=== PATIENT | male | born 1930 | race Caucasian/White ===

== ENCOUNTER 2016-11-18 | Outpatient (CLI) | payer MEDICARE, BC | END 2016-11-18 08:30 | disposition short-term general hospital (02) | CPT/HCPCS: A0425; A0427 ==

== ENCOUNTER 2016-12-08 | Outpatient (CLI) | payer MEDICARE, BC | END 2016-12-08 19:18 | disposition critical access hospital (66) | CPT/HCPCS: A0425; A0429 ==

== ENCOUNTER 2016-12-08 19:25 | Emergency (ER) | payer MEDICARE, BC ==
[2016-12-08] MEDS ORDERED: ASPIRIN CHEW 81 MG TABLET PO STA (21:14)
[2016-12-08] MEDS ORDERED: ASPIRIN CHEW 81 MG TABLET ONE (21:16)
== END 2016-12-08 21:27 | disposition home or self-care (01) ==
DX: G45.9 Transient cerebral ischemic attack, unspecified (principal); R29.703 NIHSS score 3; Z86.73 Personal history of transient ischemic attack (TIA), and cerebral infarction without residual deficits; Z79.02 Long term (current) use of antithrombotics/antiplatelets; I10 Essential (primary) hypertension; Z95.5 Presence of coronary angioplasty implant and graft; Z87.891 Personal history of nicotine dependence
CPT/HCPCS: 70450; 99283; 99284; A9270

== ENCOUNTER 2016-12-09 | Outpatient (CLI) | payer MEDICARE, BC | END 2016-12-09 07:17 | disposition critical access hospital (66) | DX: R53.1 Weakness (principal) | CPT/HCPCS: A0425; A0429 ==

== ENCOUNTER 2016-12-09 07:24 | Inpatient (IN) | payer MEDICARE, BC ==
[2016-12-09] MEDS ORDERED: SODIUM CHLORIDE FLUSH 0.9% 10 ML SYRINGE IVP PRN (08:12)
[2016-12-09] MEDS ORDERED: ACETAMINOPHEN 325 MG TABLET PO PRN (08:12)
[2016-12-09] MEDS ORDERED: HYDROcod/ACETAM 10 MG/325 MG TABLET PO PRN (08:12)
[2016-12-09] MEDS ORDERED: SODIUM BICARBONATE 50 MEQ in SODIUM CHLORIDE 0.9% 1,000 ML IV SCH (09:00)
[2016-12-09] MEDS: IOPAMIDOL-300 100 ML VIAL IVP ONE ×2 (09:32→12:33)
[2016-12-09] MEDS ORDERED: ATENOLOL 25 MG TABLET PO SCH (12:00)
[2016-12-09] MEDS ORDERED: TRIAMT/HCTZ 37.5 MG/25 MG CAPSULE PO SCH (12:00)
[2016-12-09] MEDS: SODIUM BICARBONATE 50 MEQ in DEXTROSE 5% 1,000 ML IV SCH (12:18)
[2016-12-09] MEDS: CLOPIDOGREL 75 MG TABLET PO SCH (12:19)
[2016-12-09] MEDS: amLODIPine 5 MG TABLET PO SCH (12:19)
[2016-12-09] MEDS: diltiaZEM CD 180 MG CAPSULE PO SCH (12:19)
[2016-12-09] MEDS: traMADol 50 MG TABLET PO SCH ×2 (12:19→21:42)
[2016-12-09] MEDS: SODIUM CHLORIDE FLUSH 0.9% 10 ML SYRINGE IVP SCH ×2 (13:37→21:45)
[2016-12-09] MEDS: ATORVASTATIN 10 MG TABLET PO SCH (21:42)
[2016-12-10] MEDS: SODIUM BICARBONATE 50 MEQ in DEXTROSE 5% 1,000 ML IV SCH ×2 (00:10→12:26)
[2016-12-10] MEDS: SODIUM CHLORIDE FLUSH 0.9% 10 ML SYRINGE IVP SCH ×3 (05:22→21:04)
[2016-12-10] MEDS: CLOPIDOGREL 75 MG TABLET PO SCH (09:01)
[2016-12-10] MEDS: POLYETHYLENE GLYCOL 3350 17 GM PACKET PO SCH (09:01)
[2016-12-10] MEDS: amLODIPine 5 MG TABLET PO SCH (09:01)
[2016-12-10] MEDS: diltiaZEM CD 180 MG CAPSULE PO SCH (09:01)
[2016-12-10] MEDS: traMADol 50 MG TABLET PO SCH ×2 (09:01→21:04)
[2016-12-10] MEDS: TRIAMT/HCTZ 37.5 MG/25 MG CAPSULE PO SCH (09:02)
[2016-12-10] MEDS ORDERED: ATENOLOL 25 MG TABLET PO SCH (21:00)
[2016-12-10] MEDS: ATORVASTATIN 10 MG TABLET PO SCH (21:04)
[2016-12-11] MEDS: SODIUM BICARBONATE 50 MEQ in DEXTROSE 5% 1,000 ML IV SCH (00:26)
[2016-12-11] MEDS: SODIUM CHLORIDE FLUSH 0.9% 10 ML SYRINGE IVP SCH (06:19)
[2016-12-11] MEDS: amLODIPine 5 MG TABLET PO SCH (08:28)
[2016-12-11] MEDS: TRIAMT/HCTZ 37.5 MG/25 MG CAPSULE PO SCH (08:28)
[2016-12-11] MEDS: traMADol 50 MG TABLET PO SCH (08:28)
[2016-12-11] MEDS: diltiaZEM CD 180 MG CAPSULE PO SCH (08:28)
[2016-12-11] MEDS: CLOPIDOGREL 75 MG TABLET PO SCH (08:28)
[2016-12-11] MEDS: POLYETHYLENE GLYCOL 3350 17 GM PACKET PO SCH (08:29)
== END 2016-12-11 13:36 | DRG 65 ==
DX: I63.9 Cerebral infarction, unspecified (principal); I63.512 Cerebral infarction due to unspecified occlusion or stenosis of left middle cerebral artery; G81.91 Hemiplegia, unspecified affecting right dominant side; R29.810 Facial weakness; R20.0 Anesthesia of skin; Z86.73 Personal history of transient ischemic attack (TIA), and cerebral infarction without residual deficits; I10 Essential (primary) hypertension; E78.00 Pure hypercholesterolemia, unspecified; Z95.5 Presence of coronary angioplasty implant and graft; R47.1 Dysarthria and anarthria; R47.02 Dysphasia; E78.5 Hyperlipidemia, unspecified; R29.707 NIHSS score 7; Z87.891 Personal history of nicotine dependence; Z66 Do not resuscitate; Z80.9 Family history of malignant neoplasm, unspecified; Z68.30 Body mass index [BMI] 30.0-30.9, adult; E66.9 Obesity, unspecified

== ENCOUNTER 2017-04-08 08:00 | Outpatient (CLI) | payer MEDICARE, BC ==
[2017-04-09 20:17] LABS: TEST RESULT REPORT (())
== END 2017-04-08 08:01 | disposition home or self-care (01) ==
LOC: LAB.R 08:00
PROVIDERS: ATTEND Family Medicine
DX: R19.7 Diarrhea, unspecified (principal)
CPT/HCPCS: 81599; 82705; 83630; 87045; 87046; 87177; 87209; 87329; 87493

== ENCOUNTER 2017-05-10 10:24 | Outpatient (CLI) | payer MEDICARE, BC ==
[2017-05-10 15:10] LABS: BASOPHILS % (AUTO) 0.3 %; EOSINOPHILS % (AUTO) 0.6 %; HCT - HEMATOCRIT 29.9 % (42.0-52.0); HGB - HEMOGLOBIN 10.3 g/dL (14.0-18.0); LYMPHOCYTES # (AUTO) 1.4 10^3/uL (1.5-3.5); LYMPHOCYTES % (AUTO) 24.6 %; MEAN CORPUSCULAR HEMOGLOBIN 29.3 pg (27.0-31.0); MEAN CORPUSCULAR HGB CONC 34.4 g/dL (32.0-36.0); MEAN CORPUSCULAR VOLUME 85.3 fL (80.0-94.0); MEAN PLATELET VOLUME 6.9 fL (7.4-11.4); MONOCYTES # (AUTO) 0.7 10^3/uL (0.0-1.0); MONOCYTES % (AUTO) 12.1 %; NEUTROPHILS # (AUTO) 3.6 10^3/uL (1.5-6.6); NEUTROPHILS % (AUTO) 62.4 %; NUCLEATED RED BLOOD CELLS AUTO 0.1 /100WBC; RED BLOOD COUNT 3.51 10^6/uL (4.70-6.10); RED CELL DISTRIBUTION WIDTH 13.5 % (12.0-15.0); UNCORRECTED WHITE BLOOD COUNT 5.9 x10^3/uL; WHITE BLOOD COUNT 5.9 x10^3/uL (4.8-10.8)
[2017-05-10 17:19] LABS: FERRITIN 61.7 ng/mL (23.9-336.2)
[2017-05-10 17:20] LABS: IRON 48 ug/dL (45-182); TOTAL IRON BINDING CAPACITY 276 ug/dL (250-450); TRANSFERRIN 197 mg/dL (180-329)
[2017-05-10 17:35] LABS: THYROID STIMULATING HORMONE 2.51 uIU/mL (0.34-5.60)
== END 2017-05-10 10:25 | disposition home or self-care (01) ==
LOC: LAB.WCP 10:24
PROVIDERS: ATTEND Family Medicine
DX: D64.9 Anemia, unspecified (principal)
CPT/HCPCS: 36415; 82728; 83540; 84443; 84466; 85025

== ENCOUNTER 2017-08-25 03:51 | Outpatient (CLI) | payer MEDICARE, BC ==
[2017-08-25 19:05] LABS: CALCIUM 9.1 mg/dL (8.5-10.3); CREATININE 1.6 mg/dL (0.6-1.2); POTASSIUM 3.9 mmol/L (3.5-5.0)
== END 2017-08-25 03:52 | disposition home or self-care (01) ==
LOC: LAB.WCP 03:51
PROVIDERS: ATTEND Family Medicine
DX: I12.9 Hypertensive chronic kidney disease with stage 1 through stage 4 chronic kidney disease, or unspecified chronic kidney disease (principal); N18.2 Chronic kidney disease, stage 2 (mild)
CPT/HCPCS: 36415; 80048

== ENCOUNTER 2018-01-03 08:00 | Outpatient (CLI) | payer MEDICARE, BC ==
[2018-01-03 19:12] LABS: BASOPHILS % (AUTO) 0.5 %; EOSINOPHILS # (AUTO) 0.1 10^3/uL (0.0-0.7); EOSINOPHILS % (AUTO) 1.3 %; HGB - HEMOGLOBIN 10.9 g/dL (14.0-18.0); LYMPHOCYTES # (AUTO) 1.7 10^3/uL (1.5-3.5); MEAN CORPUSCULAR HEMOGLOBIN 28.6 pg (27.0-31.0); MEAN CORPUSCULAR HGB CONC 33.2 g/dL (32.0-36.0); MEAN CORPUSCULAR VOLUME 86.2 fL (80.0-94.0); MEAN PLATELET VOLUME 6.5 fL (7.4-11.4); MONOCYTES # (AUTO) 0.6 10^3/uL (0.0-1.0); MONOCYTES % (AUTO) 11.6 %; NEUTROPHILS # (AUTO) 2.8 10^3/uL (1.5-6.6); NEUTROPHILS % (AUTO) 53.6 %; PLT - PLATELET COUNT 125 10^3/uL (130-450); RED CELL DISTRIBUTION WIDTH 13.5 % (12.0-15.0); WHITE BLOOD COUNT 5.3 x10^3/uL (4.8-10.8)
[2018-01-03 19:19] LABS: CALCIUM 8.9 mg/dL (8.5-10.3); CREATININE 1.5 mg/dL (0.6-1.2)
== END 2018-01-03 08:01 | disposition home or self-care (01) ==
LOC: LAB.WCP 08:00
PROVIDERS: ATTEND Family Medicine
DX: I12.9 Hypertensive chronic kidney disease with stage 1 through stage 4 chronic kidney disease, or unspecified chronic kidney disease (principal); N18.2 Chronic kidney disease, stage 2 (mild); E78.5 Hyperlipidemia, unspecified; I25.10 Atherosclerotic heart disease of native coronary artery without angina pectoris
CPT/HCPCS: 36415; 80048; 85025

== ENCOUNTER 2019-05-24 16:07 | Outpatient (CLI) | payer MEDICARE, BC | END 2019-05-24 16:08 | disposition EMS.NT | LOC: EMS 16:07 | PROVIDERS: ATTEND Surgery | DX: Z03.89 Encounter for observation for other suspected diseases and conditions ruled out (principal) ==

== ENCOUNTER 2019-06-30 08:00 | Outpatient (CLI) | payer MEDICARE, BC ==
[2019-06-30 19:24] LABS: ALBUMIN 3.7 g/dL (3.2-5.5); ALKALINE PHOSPHATASE 88 IU/L (42-121); ALT ALANINE AMINOTRANSFERASE 12 IU/L (10-60); AST ASPARTATE AMINOTRANSFERASE 15 IU/L (10-42); BILIRUBIN,TOTAL 0.5 mg/dL (0.2-1.0); BUN - BLOOD UREA NITROGEN 28 mg/dL (6-20); CALCIUM 9.1 mg/dL (8.5-10.3); CARBON DIOXIDE - CO2 27 mmol/L (21-32); CHLORIDE 104 mmol/L (101-111); CHOL/HDL RATIO 4.2 (<5.0); CHOLESTEROL 113 mg/dL; CREATININE 1.7 mg/dL (0.6-1.2); GFR - MDRD 38 (>89); GLUCOSE 115 mg/dL (70-100); HDL CHOLESTEROL 27 mg/dL; LDL CHOLESTEROL,CALCULATED 63 mg/dL; LDL/HDL RATIO 2.3 (<3.6); SODIUM 139 mmol/L (135-145); TOTAL PROTEIN 7.3 g/dL (6.7-8.2); VLDL CHOLESTEROL 23 mg/dL
[2019-06-30 19:31] LABS: BASOPHILS % (AUTO) 0.6 %; EOSINOPHILS # (AUTO) 0.1 10^3/uL (0.0-0.7); EOSINOPHILS % (AUTO) 1.2 %; HGB - HEMOGLOBIN 8.8 g/dL (14.0-18.0); LYMPHOCYTES # (AUTO) 1.1 10^3/uL (1.5-3.5); LYMPHOCYTES % (AUTO) 23.2 %; MEAN CORPUSCULAR HEMOGLOBIN 25.5 pg (27.0-31.0); MEAN CORPUSCULAR HGB CONC 29.6 g/dL (32.0-36.0); MEAN CORPUSCULAR VOLUME 86.1 fL (80.0-94.0); MEAN PLATELET VOLUME 8.9 fL (7.4-11.4); MONOCYTES # (AUTO) 0.6 10^3/uL (0.0-1.0); NEUTROPHILS # (AUTO) 3.1 10^3/uL (1.5-6.6); NEUTROPHILS % (AUTO) 62.8 %; PLT - PLATELET COUNT 136 10^3/uL (130-450); RED BLOOD COUNT 3.45 10^6/uL (4.70-6.10); WHITE BLOOD COUNT 4.9 x10^3/uL (4.8-10.8)
== END 2019-06-30 23:59 | disposition home or self-care (01) ==
LOC: LAB.N 08:00
PROVIDERS: ATTEND Family Medicine
DX: I12.9 Hypertensive chronic kidney disease with stage 1 through stage 4 chronic kidney disease, or unspecified chronic kidney disease (principal); N18.2 Chronic kidney disease, stage 2 (mild); E78.5 Hyperlipidemia, unspecified; M79.662 Pain in left lower leg; Z12.5 Encounter for screening for malignant neoplasm of prostate
CPT/HCPCS: 36415; 80061; 85379; G0103; 80053; 83721; 84153; 84443; 85025

== ENCOUNTER 2019-08-03 14:57 | Outpatient (CLI) | payer MEDICARE, BC | END 2019-08-03 14:58 | disposition critical access hospital (66) | LOC: EMS 14:57 | PROVIDERS: ATTEND Surgery | DX: M54.2 Cervicalgia (principal); W01.0XXA Fall on same level from slipping, tripping and stumbling without subsequent striking against object, initial encounter; Y93.01 Activity, walking, marching and hiking; Y92.008 Other place in unspecified non-institutional (private) residence as the place of occurrence of the external cause; Z79.02 Long term (current) use of antithrombotics/antiplatelets | CPT/HCPCS: A0425; A0429 ==

== ENCOUNTER 2019-08-03 15:09 | Emergency (ER) | payer MEDICARE, BC ==
--- NOTE | 2019-08-03 15:31 | ED Physician Documentation ---
History of Present Illness - Stated complaint Stated Complaint: GLF - Chief complaint Chief Complaint: General - History obtained from History obtained from: Patient - History of Present Illness Timing: Today (Had a trip and fall in the driveway at home, sounds like he hit the occiput on his boat. History is a little limited from patient but due to dementia. He is on Plavix. No reported loss of consciousness. He denies any other injuries or pain but does have a scrape on his right pinky.) Review of Systems Constitutional: reports: Reviewed and negative Throat: reports: Reviewed and negative Cardiac: reports: Reviewed and negative Respiratory: reports: Reviewed and negative PD PAST MEDICAL HISTORY - Past Medical History Cardiovascular: Hypertension, High cholesterol Endocrine/Autoimmune: None GI: GERD : None Psych: None Musculoskeletal: None Derm: None - Past Surgical History Past Surgical History: Yes Cardiovascular: Coronary stent - Present Medications Home Medications: Ambulatory Orders Medication Instructions Recorded Confirmed Atenolol 50 mg PO QPM 12/08/16 12/09/16 Atorvastatin [Lipitor] 20 mg PO QPM 12/08/16 12/09/16 Clopidogrel [Plavix] 75 mg PO DAILY 12/08/16 12/09/16 amLODIPine [Norvasc] 10 mg PO DAILY 12/08/16 12/09/16 traMADol [Ultram] 50 mg PO Q12H PRN 12/08/16 12/09/16 Diltiazem HCl [Diltiazem 24Hr Cd] 180 mg PO DAILY 12/09/16 12/09/16 Famotidine 20 mg PO DAILY 12/09/16 12/09/16 Ferrous Gluconate 324 mg PO DAILY 12/09/16 12/09/16 Nitroglycerin [Nitrostat] 0.4 mg SL Q5M PRN 12/09/16 12/09/16 Triamterene/Hydrochlorothiazid 1 tab PO DAILY 12/09/16 12/09/16 [Triamterene-Hctz 37.5-25 mg Tb] - Allergies Allergies/Adverse Reactions: Allergies Allergy/AdvReac Type Severity Reaction Status Date / Time No Known Drug Allergies Allergy Verified 12/09/16 07:26 - Social History Does the pt smoke?: No Smoking Status: Never smoker Does the pt drink ETOH?: No - Immunizations Immunizations are current?: Yes PD ED PE NORMAL - Vitals Vital signs reviewed: Yes - General General: Other (He is alert and oriented to person and place but not time, pleasant and in no distress.) - HEENT HEENT: PERRL, EOMI - Neck Neck: No bony TTP (But maintained in a collar pending imaging given advanced age) - Cardiac Cardiac: RRR, No murmur - Respiratory Respiratory: No respiratory distress, Clear bilaterally - Abdomen Abdomen: Non tender - Extremities Extremities: Other (There is a scrape on the dorsum of the right pinky at the level of the middle phalanx but without tenderness or limited range of motion) - Neuro Neuro: No motor deficit, No sensory deficit, Normal speech Eye Opening: Spontaneous Motor: Obeys Commands Results - Vitals Vitals: Vital Signs - 24 hr 08/03/19 15:13 Temperature 36.3 C L Heart Rate 59 L Respiratory 16 Rate Blood Pressure 153/62 H O2 Saturation 98 Oxygen O2 Source Room air - Rads (name of study) CT Head and Cspine Radiology: EMP read contemporaneously (NAD) Departure - Departure Disposition: 01 Home, Self Care Clinical Impression: Fall from ground level Head injury Qualifiers: Encounter type: initial encounter Qualified Code(s): S09.90XA - Unspecified i njury of head, initial encounter Condition: Good Record reviewed to determine appropriate education?: Yes Instructions: ED Head Injury Closed Comments: Call your doctor to arrange a follow-up appointment, make the next available appointment. In the interim, return anytime if worse or if new symptoms develop. Your blood pressure was elevated today on check into the emergency department. This does not mean that you have hypertension, it is a common phenomenon to come to the emergency department and have elevated blood pressure. I recommend that you see your primary care physician within the week to have it rechecked when you are feeling better.
[2019-08-03] MEDS ORDERED: TETANUS/DIPHTHERIA/PERTUSSIS 0.5 ML SYRINGE IM ONE (15:55)
--- NOTE | 2019-08-03 15:57 | CT Report ---
Reason: head inj Procedure Date: 08/03/2019 Accession Number: [id number] / [id number] Procedure: CT - HEAD WO CPT Code: FULL RESULT: EXAM: CT HEAD EXAM DATE: 08/03/2019 03:36 PM. CLINICAL HISTORY: Headache from blunt head trauma. COMPARISON: HEAD ANGIO 12/09/2016 9:11 AM. TECHNIQUE: Multiaxial CT images were obtained from the foramen magnum to the vertex. Reformats: Sagittal and coronal. IV contrast: None. In accordance with CT protocol optimization, one or more of the following dose reduction techniques were utilized for this exam: automated exposure control, adjustment of mA and/or KV based on patient size, or use of iterative reconstructive technique. FINDINGS: Parenchyma: No intraparenchymal hemorrhage. No evidence of mass, midline shift, or CT findings of infarction. Frey-white differentiation is distinct. There is age appropriate generalized atrophy. Redemonstration of bilateral physiologic basal ganglia calcification. Extraaxial Spaces: Normal for age. No subdural or epidural collections identified. Ventricles: Normal in size and position. Sinuses and Orbits: Imaged paranasal sinuses, orbits, and mastoids show no significant abnormality. Bones: No evidence of fracture or calvarial defect. Other: None. IMPRESSION: Normal for age examination. No acute intracranial finding. RADIA
--- NOTE | 2019-08-03 16:08 | CT Report ---
Reason: head inj Procedure Date: 08/03/2019 Accession Number: [id number] / [id number] Procedure: CT - CERVICAL SPINE WO CPT Code: FULL RESULT: EXAM: CT CERVICAL SPINE WITHOUT CONTRAST DATE: 08/03/2019 03:36 PM. HISTORY: Neck pain from head trauma. COMPARISONS: HEAD ANGIO 12/09/2016 9:11 AM. TECHNIQUE: Thin-section axial images were acquired of the cervical spine without contrast. Post-processing: Coronal and sagittal reformats. Other: None. In accordance with CT protocol optimization, one or more of the following dose reduction techniques were utilized for this exam: automated exposure control, adjustment of mA and/or KV based on patient size, or use of iterative reconstructive technique. FINDINGS: Alignment: No scoliosis or spondylolisthesis. Bones: No evidence of fracture. Moderately severe generalized degenerative disk disease and uncovertebral/facet arthropathy. 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 No significant central canal stenosis. Intervertebral: Allowing for absence of intravenous contrast, no obvious focal disk protrusion. Musculature: Normal. No fatty atrophy. Other: The paravertebral and prevertebral soft tissues are unremarkable. The visualized lung apices are clear. IMPRESSION: 1. No evidence of fracture or malalignment. 2. See above discussion of chronic findings. RADIA
[2019-08-03 16:36] VITALS: BP 160/70
== END 2019-08-03 16:36 | disposition home or self-care (01) ==
LOC: ED 15:09
DX: S09.90XA Unspecified injury of head, initial encounter (principal); S60.416A Abrasion of right little finger, initial encounter; W01.198A Fall on same level from slipping, tripping and stumbling with subsequent striking against other object, initial encounter; Y93.01 Activity, walking, marching and hiking; Y92.008 Other place in unspecified non-institutional (private) residence as the place of occurrence of the external cause; Z23 Encounter for immunization; M50.30 Other cervical disc degeneration, unspecified cervical region; I10 Essential (primary) hypertension; Z79.02 Long term (current) use of antithrombotics/antiplatelets; F03.90 Unspecified dementia, unspecified severity, without behavioral disturbance, psychotic disturbance, mood disturbance, and anxiety
CPT/HCPCS: 70450; 72125; 90471; 99282

== ENCOUNTER 2019-08-05 05:48 | Outpatient (CLI) | payer MEDICARE, BC | END 2019-08-05 05:49 | disposition EMS.NT | LOC: EMS 05:48 | PROVIDERS: ATTEND Surgery | DX: S60.511A Abrasion of right hand, initial encounter (principal); W10.9XXA Fall (on) (from) unspecified stairs and steps, initial encounter; Y92.009 Unspecified place in unspecified non-institutional (private) residence as the place of occurrence of the external cause ==

== ENCOUNTER 2019-08-16 23:43 | Outpatient (CLI) | payer MEDICARE, BC | END 2019-08-16 23:44 | disposition EMS.NT | LOC: EMS 23:43 | PROVIDERS: ATTEND Surgery | DX: Z03.89 Encounter for observation for other suspected diseases and conditions ruled out (principal) ==

== ENCOUNTER 2019-08-28 05:17 | Outpatient (CLI) | payer MEDICARE, BC | END 2019-08-28 05:18 | disposition critical access hospital (66) | LOC: EMS 05:17 | PROVIDERS: ATTEND Surgery | DX: M25.551 Pain in right hip (principal); W01.0XXA Fall on same level from slipping, tripping and stumbling without subsequent striking against object, initial encounter; Y93.01 Activity, walking, marching and hiking; Y92.009 Unspecified place in unspecified non-institutional (private) residence as the place of occurrence of the external cause | CPT/HCPCS: A0425; A0427 ==

== ENCOUNTER 2019-08-28 05:25 | Inpatient (IN) | payer MEDICARE, BC ==
--- NOTE | 2019-08-28 06:32 | XRAY Report ---
Reason: fall, possible fracture Procedure Date: 08/28/2019 Accession Number: [id number] / [id number] Procedure: XR - Shoulder 3 View RT CPT Code: FULL RESULT: EXAM: RIGHT SHOULDER RADIOGRAPHY EXAM DATE: 08/28/2019 05:58 AM. CLINICAL HISTORY: Fall, possible fracture. COMPARISON: None. TECHNIQUE: 3 views. FINDINGS: Bones: Normal. No fracture or bone lesion. Joints: Degenerative changes of the glenohumeral and acromioclavicular joints. Soft tissues: The visualized hemithorax is unremarkable. No soft tissue swelling. IMPRESSION: Osteoarthritis. No evidence of acute fracture. RADIA
[2019-08-28] MEDS ORDERED: MORPHINE 2 MG/ML CARPUJECT IVP STA ×2 (06:41→09:26)
--- NOTE | 2019-08-28 06:55 | XRAY Report ---
Reason: fall, possible fracture Procedure Date: 08/28/2019 Accession Number: [id number] / [id number] Procedure: XR - Hip w/Pelvis 2-3V RT CPT Code: FULL RESULT: EXAM: RIGHT HIP RADIOGRAPHY EXAM DATE: 08/28/2019 06:28 AM. CLINICAL HISTORY: Fall, possible fracture. COMPARISON: None. TECHNIQUE: AP pelvis and 2 views right hip. FINDINGS: Bones: Moderately displaced and comminuted intertrochanteric right proximal femur fracture. No definitive pathologic lesion. No other fracture seen. Joints: Normal. No dislocation. The hip joint space is preserved. Soft Tissues: Right hip pelvic surgical clips. No soft tissue swelling. IMPRESSION: Moderately displaced and comminuted intertrochanteric right proximal femur fracture. RADIA
[2019-08-28 07:03] LABS: BASOPHILS % (AUTO) 0.4 %; EOSINOPHILS % (AUTO) 0.6 %; HGB - HEMOGLOBIN 7.9 g/dL (14.0-18.0); LYMPHOCYTES # (AUTO) 0.8 10^3/uL (1.5-3.5); LYMPHOCYTES % (AUTO) 11.4 %; MEAN CORPUSCULAR HEMOGLOBIN 25.3 pg (27.0-31.0); MEAN CORPUSCULAR HGB CONC 30.2 g/dL (32.0-36.0); MEAN PLATELET VOLUME 8.1 fL (7.4-11.4); MONOCYTES # (AUTO) 0.5 10^3/uL (0.0-1.0); MONOCYTES % (AUTO) 7.6 %; NEUTROPHILS # (AUTO) 5.4 10^3/uL (1.5-6.6); NEUTROPHILS % (AUTO) 79.4 %; PLT - PLATELET COUNT 96 10^3/uL (130-450); RED BLOOD COUNT 3.12 10^6/uL (4.70-6.10); RED CELL DISTRIBUTION WIDTH 14.1 % (12.0-15.0); WHITE BLOOD COUNT 6.8 x10^3/uL (4.8-10.8)
[2019-08-28 07:10] LABS: INR 1.2 (0.8-1.2); PT - PROTHROMBIN TIME 13.9 secs (9.9-12.6)
[2019-08-28 07:15] LABS: CALCIUM 8.7 mg/dL (8.5-10.3); CREATININE 1.6 mg/dL (0.6-1.2)
[2019-08-28 07:18] LABS: PARTIAL THROMBOPLASTIN TIME 28.5 secs (24.9-33.3)
[2019-08-28 07:22] LABS: BILIRUBIN,URINE NEGATIVE (NEGATIVE); GLUCOSE, URINE (UA) NEGATIVE (NEGATIVE); KETONES,URINE (UA) NEGATIVE (NEGATIVE); LEUKOCYTE ESTERASE, URINE NEGATIVE (NEGATIVE); NITRITE,URINE NEGATIVE (NEGATIVE); OCCULT BLOOD,URINE TRACE-INTA (NEGATIVE); PROTEIN,URINE NEGATIVE (NEGATIVE); UROBILINOGEN,URINE 0.2 (NORMAL) E.U./dL (NORMAL)
[2019-08-28 07:23] LABS: CLARITY,URINE CLEAR (CLEAR)
--- NOTE | 2019-08-28 07:32 | XRAY Report ---
Reason: hip fracture Procedure Date: 08/28/2019 Accession Number: [id number] / [id number] Procedure: XR - Chest 1 View X-Ray CPT Code: 74166 FULL RESULT: EXAM: CHEST RADIOGRAPHY EXAM DATE: 08/28/2019 07:08 AM. CLINICAL HISTORY: Hip fracture. COMPARISON: None. TECHNIQUE: 1 view. FINDINGS: Lungs/Pleura: Shallow lung volumes, with bilateral atelectasis versus borderline pulmonary edema. Mediastinum: Heart size upper limits of normal. Mild mediastinal prominence consistent with supine positioning. Other: None. IMPRESSION: Shallow lung volumes with bilateral atelectasis versus borderline pulmonary edema. RADIA
--- NOTE | 2019-08-28 07:49 | ED Physician Documentation ---
PD HPI LOWER EXT INJURY - Stated complaint Stated Complaint: FALL/HIP PAIN - Chief complaint Chief Complaint: Trauma Ext - History obtained from History obtained from: Patient, EMS - History of Present Illness PD HPI LOW EXT INJURY LOCATION: Right, Hip Type of injury: Fall Where injury occurred: Home Timing - onset: Today Timing - duration: Minutes Timing - details: Abrupt onset, Still present Improved by: Rest, Immobilization Worsened by: Moving, Palpating Associated symptoms: Swelling. No: Weakness, Numbness, Tingling Contributing factors: Anticoagulated Similar symptoms before: Has not had sx before Recently seen: Not recently seen - Additional information Additional information: 89-year-old male with history of hypertension high cholesterol TIA and a prior coronary stent was at a neighbor's house helping them move a meter and he is uncertain exactly how a fall occurred but he fell the mirror broke and the patient has broken his right hip. He is complaining of pain in his right hip and right shoulder he is uncertain if he hit his head. He is on some Plavix. He states that he has had some swelling to his lower extremities which is normal for him on a periodic basis and he takes some triamterene hydrochlorothiazide. He states that he was not ill this past week in any way. Review of Systems Constitutional: denies: Fever Eyes: denies: Decreased vision Ears: denies: Ear pain Nose: denies: Congestion Throat: denies: Sore throat Cardiac: denies: Chest pain / pressure, Palpitations Respiratory: denies: Dyspnea, Cough GI: denies: Abdominal Pain, Nausea, Vomiting : denies: Dysuria, Frequency Skin: denies: Rash Musculoskeletal: reports: Extremity pain, Joint pain. denies: Neck pain, Back pain Neurologic: denies: Generalized weakness, Focal weakness, Numbness PD PAST MEDICAL HISTORY - Past Medical History Cardiovascular: Hypertension, High cholesterol Endocrine/Autoimmune: None GI: GERD : None Psych: None Musculoskeletal: None Derm: None - Past Surgical History Past Surgical History: Yes Cardiovascular: Coronary stent - Present Medications Home Medications: Ambulatory Orders Medication Instructions Recorded Confirmed Atenolol 50 mg PO QPM 12/08/16 12/09/16 Atorvastatin [Lipitor] 20 mg PO QPM 12/08/16 12/09/16 Clopidogrel [Plavix] 75 mg PO DAILY 12/08/16 12/09/16 amLODIPine [Norvasc] 10 mg PO DAILY 12/08/16 12/09/16 traMADol [Ultram] 50 mg PO Q12H PRN 12/08/16 12/09/16 Diltiazem HCl [Diltiazem 24Hr Cd] 180 mg PO DAILY 12/09/16 12/09/16 Famotidine 20 mg PO DAILY 12/09/16 12/09/16 Ferrous Gluconate 324 mg PO DAILY 12/09/16 12/09/16 Nitroglycerin [Nitrostat] 0.4 mg SL Q5M PRN 12/09/16 12/09/16 Triamterene/Hydrochlorothiazid 1 tab PO DAILY 12/09/16 12/09/16 [Triamterene-Hctz 37.5-25 mg Tb] - Allergies Allergies/Adverse Reactions: Allergies Allergy/AdvReac Type Severity Reaction Status Date / Time No Known Drug Allergies Allergy Verified 08/28/19 05:45 - Social History Does the pt smoke?: No Smoking Status: Never smoker Does the pt drink ETOH?: No - Immunizations Immunizations are current?: Yes PD ED PE NORMAL - Vitals Vital signs reviewed: Yes (hypertensive) - General General: No acute distress, Well developed/nourished - HEENT HEENT: Atraumatic, PERRL, EOMI - Neck Neck: Supple, no meningeal sign, No bony TTP - Cardiac Cardiac: RRR, No murmur - Respiratory Respiratory: No respiratory distress, Clear bilaterally - Abdomen Abdomen: Normal bowel sounds, Soft, Non tender, Non distended, No organomegaly - Back Back: No CVA TTP, No spinal TTP - Derm Derm: Normal color, Warm and dry, No rash - Extremities Extremities: Other (There is tenderness to the right hip over the trochanter and any movement of the leg produces symptoms in the hip. The leg is shortened., ) - Neuro Neuro: tower cleaner 2-12 intact, No motor deficit, No sensory deficit, Normal speech Eye Opening: Spontaneous Motor: Obeys Commands Verbal: Oriented GCS Score: 15 - Psych Psych: Normal mood, Normal affect Results - Vitals Vitals: Vital Signs - 24 hr 08/28/19 08/28/19 08/28/19 05:30 06:41 07:56 Temperature 36.7 C Heart Rate 72 61 64 Respiratory 17 15 18 Rate Blood Pressure 166/70 H 140/79 H 168/64 H O2 Saturation 99 98 100 08/28/19 07:57 Temperature 96.8 C H Heart Rate 62 Respiratory 19 Rate Blood Pressure 168/64 H O2 Saturation 99 Oxygen O2 Source Room air - Labs Labs: Laboratory Tests 08/28/19 08/28/19 08/28/19 06:55 06:55 06:55 WBC 6.8 RBC 3.12 L Hgb 7.9 L Hct 26.2 L MCV 84.0 MCH 25.3 L MCHC 30.2 L RDW 14.1 Plt Count 96 L MPV 8.1 Neut # (Auto) 5.4 Lymph # (Auto) 0.8 L [place] # (Auto) 0.5 Eos # (Auto) 0.0 Baso # (Auto) 0.0 Absolute Nucleated RBC 0.00 Nucleated RBC % 0.0 PT 13.9 H INR 1.2 APTT 28.5 Sodium 140 Potassium 3.9 Chloride 103 Carbon Dioxide 27 Anion Gap 10.0 BUN 22 H Creatinine 1.6 H Estimated GFR (MDRD) 41 L Glucose 119 H Calcium 8.7 Urine Color Urine Clarity Urine pH Ur Specific [place] Urine Protein Urine Glucose (UA) Urine Ketones Urine Occult Blood Urine Nitrite Urine Bilirubin Urine Urobilinogen Ur Leukocyte Esterase Ur Microscopic Review Urine Culture Comments 08/28/19 07:15 WBC RBC Hgb Hct MCV MCH MCHC RDW Plt Count MPV Neut # (Auto) Lymph # (Auto) [place] # (Auto) Eos # (Auto) Baso # (Auto) Absolute Nucleated RBC Nucleated RBC % PT INR APTT Sodium Potassium Chloride Carbon Dioxide Anion Gap BUN Creatinine Estimated GFR (MDRD) Glucose Calcium Urine Color YELLOW Urine Clarity CLEAR Urine pH 6.0 Ur Specific [place] 1.025 Urine Protein NEGATIVE Urine Glucose (UA) NEGATIVE Urine Ketones NEGATIVE Urine Occult Blood TRACE-INTA Urine Nitrite NEGATIVE Urine Bilirubin NEGATIVE Urine Urobilinogen 0.2 (NORMAL) Ur Leukocyte Esterase NEGATIVE Ur Microscopic Review NOT INDICATED Urine Culture Comments NOT INDICATED - Rads (name of study) Chest Radiology: Prelim report reviewed (Impression: Shallow lung volumes with bilateral atelectasis versus borderline pulmonary edema.), EMP read indepedently, See rad report hip Radiology: Prelim report reviewed (Impression: Moderately displaced and comminuted intertrochanteric right proximal femur fracture.), EMP read indepedently, See rad report shoulder Radiology: Prelim report reviewed (Impression: Osteoarthritis. No evidence of acute fracture.), EMP read indepedently, See rad report head Radiology: Prelim report reviewed (Impression: No acute intracranial hemorrhage or calvarial fracture identified.), EMP read indepedently, See rad report PD MEDICAL DECISION MAKING - ED course Complexity details: reviewed old records, reviewed results, re-evaluated patient, considered differential, d/w patient ED course: 89-year-old male with history of hypertension high cholesterol and TIA with a coronary stent in place has a fracture to his right hip there is a comminuted intertrochanteric fracture. He is anemic as well. Departure - Departure Disposition: [facility] DC/Xfer Clinical Impression: Intertrochanteric fracture of right femur Qualifiers: Encounter type: initial encounter Fracture type: closed Fracture alignment: displaced Qualified Code(s): S72.141A - Displaced intertrochanteric fracture of right femur, initial encounter for closed fracture Anemia Qualifiers: Anemia type: unspecified type Qualified Code(s): D64.9 - Anemia, unspecified Condition: Stable
--- NOTE | 2019-08-28 07:49 | CT Report ---
Reason: fall, on plavix Procedure Date: 08/28/2019 Accession Number: [id number] / [id number] Procedure: CT - HEAD WO CPT Code: FULL RESULT: EXAM: CT HEAD EXAM DATE: 08/28/2019 07:22 AM. CLINICAL HISTORY: Fall, on Plavix. COMPARISON: CERVICAL SPINE W/O 08/03/2019 3:35 PM. HEAD W/O 08/03/2019 3:35 PM. TECHNIQUE: Multiaxial CT images were obtained from the foramen magnum to the vertex. Reformats: Sagittal and coronal. IV contrast: None. In accordance with CT protocol optimization, one or more of the following dose reduction techniques were utilized for this exam: automated exposure control, adjustment of mA and/or KV based on patient size, or use of iterative reconstructive technique. FINDINGS: Parenchyma: No acute intracranial hemorrhage or mass effect. Stable physiologic calcifications at the basal ganglia. Stable calcification at the right posterior fossa at the level of the tentorium. Stable mild and symmetric cortical atrophic changes. No midline shift. Bones: No evidence of fracture or calvarial defect. Other: Imaged portion of the facial sinuses and mastoid air cells appear clear. IMPRESSION: No acute intracranial hemorrhage or calvarial fracture identified. RADIA
[2019-08-28] MEDS ORDERED: MORPHINE 2 MG/ML CARPUJECT ONE (09:40)
[2019-08-28] MEDS ORDERED: ACETAMINOPHEN 325 MG TABLET PO PRN (10:33)
[2019-08-28] MEDS ORDERED: ONDANSETRON 4 MG/2 ML VIAL IVP PRN (10:33)
[2019-08-28] MEDS ORDERED: oxyCODONE 5 MG TABLET PO PRN ×2 (10:33→13:43)
[2019-08-28] MEDS ORDERED: ONDANSETRON ODT 4 MG TABLET TL PRN (10:33)
[2019-08-28] MEDS ORDERED: SODIUM CHLORIDE 0.9% 1,000 ML IV SCH (11:00)
--- NOTE | 2019-08-28 11:06 | PROVIDER PROGRESS NOTE ---
Subjective - Prog Note Date Prog Note Date: 08/28/19 Prog Note Time: 11:04 - Subjective Pt reports feeling: Worse (Patient had a GLF this AM while moving a mirror, sustaining a closed , angulated right IT/subtrochanteric hip fracture. No LOC or other injuries. No prior hip fracture) Objective - Vital Signs/Intake & Output Vital Signs: Vital Signs x48h Temp Pulse Resp BP Pulse Ox 08/28/19 09:40 72 20 193/74 H 97 08/28/19 09:33 71 20 181/154 H 98 08/28/19 07:57 96.8 C H 62 19 168/64 H 99 08/28/19 07:56 64 18 168/64 H 100 08/28/19 06:41 61 15 140/79 H 98 08/28/19 05:30 36.7 C 72 17 166/70 H 99 - Lab Results Fish Bones: 08/28/19 06:55 08/28/19 06:55 Other Labs: Lab Results x24hrs 08/28/19 08/28/19 08/28/19 Range/Units 07:15 06:55 06:55 WBC (4.8-10.8) x10^3/uL RBC (4.70-6.10) 10^6/uL Hgb (14.0-18.0) g/dL Hct (42.0-52.0) % MCV (80.0-94.0) fL MCH (27.0-31.0) pg MCHC (32.0-36.0) g/dL RDW (12.0-15.0) % Plt Count (130-450) 10^3/uL MPV (7.4-11.4) fL Neut # (Auto) (1.5-6.6) 10^3/uL Lymph # (Auto) (1.5-3.5) 10^3/uL [place] # (Auto) (0.0-1.0) 10^3/uL Eos # (Auto) (0.0-0.7) 10^3/uL Baso # (Auto) (0.0-0.1) 10^3/uL Absolute Nucleated RBC x10^3/uL Nucleated RBC % /100WBC PT 13.9 H (9.9-12.6) secs INR 1.2 (0.8-1.2) APTT 28.5 (24.9-33.3) secs Sodium 140 (135-145) mmol/L Potassium 3.9 (3.5-5.0) mmol/L Chloride 103 (101-111) mmol/L Carbon Dioxide 27 (21-32) mmol/L Anion Gap 10.0 (6-13) BUN 22 H (6-20) mg/dL Creatinine 1.6 H (0.6-1.2) mg/dL Estimated GFR (MDRD) 41 L (>89) Glucose 119 H (70-100) mg/dL Calcium 8.7 (8.5-10.3) mg/dL Urine Color YELLOW Urine Clarity CLEAR (CLEAR) Urine pH 6.0 (5.0-7.5) PH Ur Specific [place] 1.025 (1.002-1.030) Urine Protein NEGATIVE (NEGATIVE) mg/dL Urine Glucose (UA) NEGATIVE (NEGATIVE) mg/dL Urine Ketones NEGATIVE (NEGATIVE) mg/dL Urine Occult Blood TRACE-INTA (NEGATIVE) Urine Nitrite NEGATIVE (NEGATIVE) Urine Bilirubin NEGATIVE (NEGATIVE) Urine Urobilinogen 0.2 (NORMAL) (NORMAL) E.U./dL Ur Leukocyte Esterase NEGATIVE (NEGATIVE) Ur Microscopic Review NOT INDICATED Urine Culture Comments NOT INDICATED 08/28/19 Range/Units 06:55 WBC 6.8 (4.8-10.8) x10^3/uL RBC 3.12 L (4.70-6.10) 10^6/uL Hgb 7.9 L (14.0-18.0) g/dL Hct 26.2 L (42.0-52.0) % MCV 84.0 (80.0-94.0) fL MCH 25.3 L (27.0-31.0) pg MCHC 30.2 L (32.0-36.0) g/dL RDW 14.1 (12.0-15.0) % Plt Count 96 L (130-450) 10^3/uL MPV 8.1 (7.4-11.4) fL Neut # (Auto) 5.4 (1.5-6.6) 10^3/uL Lymph # (Auto) 0.8 L (1.5-3.5) 10^3/uL [place] # (Auto) 0.5 (0.0-1.0) 10^3/uL Eos # (Auto) 0.0 (0.0-0.7) 10^3/uL Baso # (Auto) 0.0 (0.0-0.1) 10^3/uL Absolute Nucleated RBC 0.00 x10^3/uL Nucleated RBC % 0.0 /100WBC PT (9.9-12.6) secs INR (0.8-1.2) APTT (24.9-33.3) secs Sodium (135-145) mmol/L Potassium (3.5-5.0) mmol/L Chloride (101-111) mmol/L Carbon Dioxide (21-32) mmol/L Anion Gap (6-13) BUN (6-20) mg/dL Creatinine (0.6-1.2) mg/dL Estimated GFR (MDRD) (>89) Glucose (70-100) mg/dL Calcium (8.5-10.3) mg/dL Urine Color Urine Clarity (CLEAR) Urine pH (5.0-7.5) PH Ur Specific [place] (1.002-1.030) Urine Protein (NEGATIVE) mg/dL Urine Glucose (UA) (NEGATIVE) mg/dL Urine Ketones (NEGATIVE) mg/dL Urine Occult Blood (NEGATIVE) Urine Nitrite (NEGATIVE) Urine Bilirubin (NEGATIVE) Urine Urobilinogen (NORMAL) E.U./dL Ur Leukocyte Esterase (NEGATIVE) Ur Microscopic Review Urine Culture Comments - Diagnostic Imaging Diagnostic Imaging Comments: XR show right IT/subtrochanteric hip fracture. - Other Results/Comments Other Results/Comments: EXAM: Right hip tender with painful ROM> Moves toes well. Sensation intact. Good cap filling Assessment/Plan - Problem List (1) Intertrochanteric fracture of right femur Impression: Clased, angulated fracture PLAN: He is on plavix and has evidence of ongoing blood loss from fracture. Recommend transfusing 2 units of PRBS's today and recheck Hct. Plan to ORIF of fracture and stabilize fracture with a long interTan nailing with possible cerclage wire in AM. Risk and benefit of surgery explained to patient and his . Questions answered. Leg marked and consent signed by . Qualifiers: Encounter type: initial encounter Fracture type: closed Fracture alignment: displaced Qualified Code(s): S72.141A - Displaced intertrochanteric fracture of right femur, initial encounter for closed fracture
[2019-08-28] MEDS: SODIUM CHLORIDE FLUSH 0.9% 10 ML SYRINGE IVP PRN ×2 (11:30→14:43)
[2019-08-28 11:33] LABS: HGB - HEMOGLOBIN 7.9 g/dL (14.0-18.0)
[2019-08-28] MEDS: MORPHINE 2 MG/ML CARPUJECT IVP PRN ×4 (11:41→21:50)
--- NOTE | 2019-08-28 12:20 | CONSULTATION NOTE ---
DATE OF SERVICE: 08/28/2019 Physician: Contreras Watkins MD REFERRING PHYSICIAN: Dr. Jason Kruger of the emergency room department. CHIEF COMPLAINT: "My right hip hurts." HISTORY OF PRESENT ILLNESS: Patient is an 89-year-old male who lives independently with hi s in [place] who apparently injured his right hip early this morning. He apparently was help ing a neighbor move a mirror when he lost his balance and fell onto his right side. Noted immediate pain and deformity in the right hip. He was unable to stand or weight bear on this extremity. He wa s taken by ambulance to the emergency room here at [facility]. X-rays confirmed his cl osed angulated right intertrochanteric/subtrochanteric hip fracture on the right side. Patient denie d loss of conscious, nausea, vomiting, or other injuries. No distal weakness or numbness noted. No distal weakness noted. Patient currently is on Plavix. PHYSICAL EXAMINATION: Patient's right hip showed him holding his right hip in the flexed position. He had generalized tenderness on palpation around the hip. He had painful range of motion of the hip . Moves his toes voluntarily without problems. Sensation intact throughout. Good capillary filling noted. X-RAYS: Shows a comminuted right intertrochanteric/subtrochanteric hip fracture present with the fra cture in an angulated and displaced position. ASSESSMENT 1. Closed displaced and angulated right subtrochanteric/intertrochanteric hip fracture. 2. History of transient ischemic attack. 3. Currently on Plavix. 4. Anemic. PLAN: I would like to give the patient 2 units of packed RBCs preoperatively to bring his blood coun t into a more normal range. This is in view of the fact we anticipate continued bleeding from his fr acture since he is on Plavix and has sustained this hip fracture. Also, it is expected that he will continue to lose blood intraoperatively with the planned surgery. Plan on taking him to surgery in t he morning with an open reduction and internal fixation of fracture using a long Intertan nail, ricardo gonzalez. The risks and benefits of surgery were explained to patient and his including anest hesia risks, blood loss, nerve damage, fracture, malunion, nonunion, deep venous thromboses, infectio n, etc. All their questions were answered. They wished to proceed with surgery as planned. The leg was marked. Consent signed. TD: 08/28/2019 11:21
[2019-08-28] MEDS ORDERED: SODIUM CHLORIDE 0.9% 500 ML ONE ×2 (13:34→18:13)
[2019-08-28 13:47] LABS: ABSOLUTE RETICS # AUTO 0.052 10^6/uL (0.020-0.110); RED BLOOD COUNT 3.25 10^6/uL (4.70-6.10)
[2019-08-28 14:12] LABS: % IRON SATURATION 6 % (20-50); IRON 25 ug/dL (45-182); TOTAL IRON BINDING CAPACITY 399 ug/dL (250-450); TRANSFERRIN 285 mg/dL (180-329)
[2019-08-28 14:21] LABS: FERRITIN 14.5 ng/mL (23.9-336.2)
--- NOTE | 2019-08-28 14:40 | HISTORY & PHYSICAL EXAMINATION ---
DATE OF SERVICE: 08/28/2019 Physician: Kriss Sanchez MD PRIMARY CARE PROVIDER: Manoj Guzman MD ADMITTING PROVIDER: Kriss Sanchez MD CHIEF COMPLAINT: Fall with hip pain. HISTORY OF PRESENT ILLNESS: This patient is an 89-year-old white male who lives in his own home with his . In 2016, he had a TIA where he was hospitalized at [facility]. He was sent home on medications. Then, he returned to our hospital a month later, December 2016, where he now had right-sided body weakness and a documented stroke finding on exam. The patient, at that time, did not want an MRI. He felt it would not change anything, and he hated the discomfort of being on that cold table. At that time, he was having a headache, blurred vision, and that resolved but has continued to have a right-sided body residual. He states that he lives independently at home and stoutly maintains that he does not need any help. Looking in the electronic medical record, he has been picked up off the floor twice by EMS without having to come to ER, and seen in the emergency room once because of a ground level fall. That would make 3 falls for the month of August. He doesn't remember those falls. Unfortunately, his is not with him at this time. The story is from the patient and the emergency room record. He states that he tried to get out of bed again today, tried to get to the bathroom, fell, broke a mirror, and landed on his right side. He had immediate right hip pain. He was evaluated in the emergency room and a head CT shows no acute intracranial hemorrhage. Chest x-ray showed shallow lung volumes with bilateral atelectasis versus borderline pulmonary edema. A right shoulder x-ray shows osteoarthritis, without fracture. Finally, a hip/pelvis CAT scan that shows moderately displaced and comminuted intertrochanteric right proximal femur fracture. The patient denies that he has any chest pain, coughing, shortness of breath. He does not feel any more fatigued than usual. He is just annoyed that he is here and tells me that "I will never do this again, I will never come to the hospital again." He states that he eats well. He does get help from his to get up and get dressed and to get his food. He also tells me that he ambulates without any durable medical goods, such as a walker or cane. Considering he had significant right body weakness, I do not know if this is the truth. Again, his is not with him. EKG was in December 2016 and shows sinus rhythm. The patient is now put into the hospital with consultation by Orthopedics for hip repair. He is on Plavix and we do not estimate that he will be in surgery today, but maybe tomorrow. PAST MEDICAL HISTORY 1. Hypertension. 2. Hyperlipidemia. 3. History of tonsillectomy. 4. Coronary artery disease with history of stent. 5. 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 Residuals include right body weakness, and cognitive deficits, mainly memory. 6. Osteoarthritis with knee replacement. ALLERGIES: NO KNOWN DRUG ALLERGIES. MEDICATIONS 1. Norvasc 10 mg daily. 2. Atenolol 50 mg daily. 3. Lipitor 20 mg daily. 4. Plavix 75 mg daily. 5. Diltiazem CD 24 hours tablet 180 mg daily. 6. Famotidine 20 mg daily. 7. Ferrous gluconate 324 mg daily. 8. Sublingual nitroglycerin p.r.n. 9. Tramadol 50 mg every 12 hours p.r.n. 10. Triamterene/Hydrochlorothiazide 37.54/25 mg daily. SOCIAL HISTORY: He stopped smoking 38 years ago, smoked less than half a pack per day. After stopping smoking, he went on to a pipe, but has not smoked a pipe for 18 years. He has no history of alcohol abuse. 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 He was born in [place]. He moved all over, including [place]. He retired to [employer] 30 years ago. He is to his second for approximately 45 years now. CODE STATUS: DO NOT INTUBATE, DO NOT RESUSCITATE. FAMILY HISTORY: Dad at age 47 in an accident. Mom in her 60s of cancer. One brother at age 88 of old age. Of his 3 children, 1 of suicide. His 2 other sons are healthy. REVIEW OF SYSTEMS CONSTITUTIONAL: General review of systems is negative. He denies any antecedent weight changes, cardiovascular changes, unexpected weight changes, fevers or sweats. ENT: Denies glaucoma or cataracts. He did have some dysphagia and dysarthria with his stroke, but he says that has all gone away. PULMONARY: Denies coughing, wheezing, chest congestion, chest phlegm, asthma, bronchitis. CARDIOVASCULAR: Does not remember any problems with his heart. He currently denies angina, edema, palpitations, valvular heart disease. GASTROINTESTINAL: He had ulcer disease. A very long time ago. Cannot remember when it was. He says he is up to date with his colonoscopies. He denies any blood in his stool. Denies any abdominal pain. Stoutly maintains he has a good appetite without dysphagia or aspiration. GENITOURINARY: Denies any symptoms of prostatism. MUSCULOSKELETAL: Right now his right shoulder is really hurting him after a fall. Right leg is hurting him. He feels like he is trapped in bed because he cannot move his joints. PSYCHIATRIC: Denies anxiety, depression, hallucinations. DERMATOLOGIC: Denies any rashes, skin lesions. SALES SERVICE REP: Memory loss has been present even before his stroke; exacerbated by the stroke. He has a right hemiplegia. Denies dysarthria or dysphagia. Denies migraine, syncope. His falls have been because of impulsiveness and imbalance. PHYSICAL EXAMINATION VITAL SIGNS: Temperature is 37.3, pulse 77, blood pressure 146/66, respirations 18, 94% on room air. GENERAL: He is seen in his room. He is a 6 feet 2-inch male who weighs approximately 230 pounds. Well-nourished, well-developed. HEENT: Shows him to have a minimal, minimal right facial droop. If you were not looking and did not know he had a stroke before, you would miss it. His voice is deep, nasal tone of voice, but no dysphasia or dysarthria when I have him sip water, and chew a piece of potato for me. NECK: Supple without goiter or bruits. LUNGS: Diminished breath sounds in the bases. He has no increased respiratory effort. Shallow unlabored respiration. No crackles, rhonchi or wheezing. HEART: PMI normally placed with a regular rate and rhythm without any murmurs, rubs or gallops. ABDOMEN: Soft, nontender, hypoactive bowel sounds. No masses. EXTREMITIES: Warm. Both ankles have slight edema with the right ankle worse than the left ankle. Right now, the right hip is flexed; he does not want to extend for me. Plantar and dorsiflexion on the left foot are intact. Right foot, he can almost do, but again, he says it hurts his leg too much and he does not want me to move his right leg or right foot at all. He has some slight lymphedema of the right arm, and right hand. Slight contractures of the fingers of the right hand. NEUROLOGIC: He is alert to place and person, not to time. He is not a good historian in that he denies he has a disability and is unaware of his falls this month. He maintains a level of independence that is probably not based in reality. He has a right body weakness that is a 3+/5 in comparison to his left body. Speech is slightly slurred, in spite of normal swallowing and no dysphagia. LABORATORY DATA: Sodium 140, potassium 3.9, BUN 22, creatinine 1.6. His baseline is 1.6-1.7. GFR 41. Glucose 119. White cell count is 6.8, hemoglobin 7.9, hematocrit 26.2. Normal in December 2016 was hemoglobin 12.3 but it drifted down to 10.3. In 2017, hemoglobin was 10.9. In June 2019, it drifted down to 8.8. MCV is 86 to 84. INR is 1.2. Urinalysis has trace occult blood, but is otherwise negative for glucose, ketones, protein, nitrites, leukocyte esterase. He does not have a microscopic review. IMAGES: Films have been reviewed in History of Present Illness. ASSESSMENT/PLAN 1. Right hip fracture in a patient who had a ground level fall. There is no other mechanism of injury, specifically no syncope or arrhythmia. a. Inpatient admission. b. Attestation that the patient will be discharged within 96 hours. c. Orthopedic consult. d. Pain management with opiates and Tylenol. e. Occupational and physical therapy to see the patient on postop day #1 or #2. 2. Preoperative evaluation. The patient is an elderly male who already uses durable medical goods, and has a documented coronary artery disease history. He does not have atrial fibrillation, valvular heart disease. His NSQIP score for serious complication is 12.8%, any complication, 14%. Pneumonia risk was 2.7%. Cardiac complication 1.6%. Readmission rate is 8.5%. Because of his age and comorbidities, his predicted length of hospital stay is 6.5 days. Geriatric outcomes are also analyzed. His risk of postop delirium is 62.7%. Functional decline is 11%. Use of mobility aid will be 99%. Pressure ulcers progression is 4.6%. 3. History of stroke. The patient is currently on Plavix. That will be held to reduce his risk of bleeding. We will resume that in the postoperative setting. Because of Plavix use, surgery will be delayed until tomorrow at the earliest. 4. Chronic normocytic anemia. a. Anemia panel. b. Stool for fecal occult blood. c. Orthopedic Surgery has identified this gentleman as having increased risk of losing more blood with surgery. He is also on Plavix. As such, Orthopedics will be transfusing 2 units of blood today in preparation for surgery tomorrow. 5. Hypertension. Resume usual home medications. 6. History of coronary artery disease. We will resume his aspirin, statin, beta kushal. 7. DO NOT RESUSCITATE/DO NOT INTUBATE status. This was his status with last admission in 2017. In view of his cognitive deficits, will verify with that he is able to make that decision. If so, I will also try and fill out a POLST Form during his stay. 8. Deep venous thrombosis prophylaxis will be JOLEEN hose and compression device. TD: 08/28/2019 12:48 RAQUEL
[2019-08-28] MEDS: SODIUM CHLORIDE FLUSH 0.9% 10 ML SYRINGE IVP SCH (17:54)
[2019-08-29] MEDS ORDERED: SODIUM CHLORIDE 0.9% 1,000 ML IV SCH ×3 (00:01→16:32)
[2019-08-29] MEDS: SODIUM CHLORIDE FLUSH 0.9% 10 ML SYRINGE IVP SCH ×2 (01:08→17:21)
[2019-08-29] MEDS: MORPHINE 2 MG/ML CARPUJECT IVP PRN ×2 (05:43→13:40)
--- NOTE | 2019-08-29 07:10 | ANESTHESIA ---
Pre-Anesthesia VS, & Labs - Diagnosis right his fracture - Procedure right hip IM nailing Vital Signs: Temp Pulse Resp BP Pulse Ox 37.6 C H 89 20 156/80 H 94 08/29/19 00:00 08/29/19 00:00 08/29/19 00:00 08/29/19 02:43 08/29/19 00:00 Height 6 ft 2 in Weight (kg) 104 kg Body Mass Index 29.4 - Lab Results Current Lab Results: Laboratory Tests 08/28/19 11:20: RBC 3.25 L, Reticulocyte % (Auto) 1.61, Absolute Retic 0.052 08/28/19 11:20: Blood Type O NEGATIVE, Antibody Screen NEGATIVE, Crossmatch IS Only See Detail 08/28/19 11:20: Hgb 7.9 L, Hct 27.2 L 08/28/19 06:55: Lactate Dehydrogenase 147 08/28/19 06:55: Ferritin 14.5 L, Vitamin B12 471 08/28/19 06:55: Iron 25 L, TIBC 399, % Saturation 6 L, Transferrin 285 08/28/19 06:55: Blood Type Recheck O NEGATIVE 08/28/19 06:55: Sodium 140, Potassium 3.9, Chloride 103, Carbon Dioxide 27, Anion Gap 10.0, BUN 22 H, Creatinine 1.6 H, Estimated GFR (MDRD) 41 L, Glucose 119 H, Calcium 8.7 08/28/19 06:55: PT 13.9 H, INR 1.2, APTT 28.5 08/28/19 06:55: WBC 6.8, RBC 3.12 L, Hgb 7.9 L, Hct 26.2 L, MCV 84.0, MCH 25.3 L , MCHC 30.2 L, RDW 14.1, Plt Count 96 L, MPV 8.1, Neut # (Auto) 5.4, Lymph # (Auto) 0.8 L, [place] # (Auto) 0.5, Eos # (Auto) 0.0, Baso # (Auto) 0.0, Absolute Nucleated RBC 0.00, Nucleated RBC % 0.0 Fish Bones: 08/29/19 08:02 08/28/19 06:55 Home Medications and Allergies Active Medications Acetaminophen (Tylenol) 650 mg PO Q4HR PRN PRN Reason: Pain 1 to 4 Cefazolin Sodium 2 gm/ Sodium (Chloride) 100 mls @ 200 mls/hr IV ONCE [facility] Stop: 08/29/19 18:00 Sodium Chloride (Normal Saline 0.9%) 1,000 mls @ 40 mls/hr IV .Q25H [facility] Last Admin: 08/28/19 23:04 Dose: 40 mls/hr Morphine Sulfate (Morphine (Carpuject)) 2 mg IVP Q2HR PRN PRN Reason: Pain 8 to 10 Last Admin: 08/29/19 05:43 Dose: 2 mg Ondansetron HCl (Zofran Inj) 4 mg IVP Q6HR PRN PRN Reason: Nausea / Vomiting Ondansetron HCl (Zofran Odt) 4 mg TL Q6HR PRN PRN Reason: Nausea / Vomiting Oxycodone HCl (Roxicodone) 5 mg PO Q6HR PRN PRN Reason: Pain 5 to 7 Last Admin: 08/29/19 01:17 Dose: 5 mg Polyethylene Glycol (Miralax) 17 gm PO DAILY [facility] Sodium Chloride (Normal Saline Flush 0.9%) 10 ml IVP PRN PRN PRN Reason: NEEDED PER PROVIDER ORDERS Last Admin: 08/28/19 14:43 Dose: 10 ml Sodium Chloride (Normal Saline Flush 0.9%) 10 ml IVP 0100,0900,1700 [facility] Last Admin: 08/29/19 01:08 Dose: Not Given Atenolol 50 mg PO QPM 12/08/16 Atorvastatin [Lipitor] 20 mg PO QPM 12/08/16 Clopidogrel [Plavix] 75 mg PO DAILY 12/08/16 amLODIPine [Norvasc] 10 mg PO DAILY 12/08/16 traMADol [Ultram] 50 mg PO Q12H PRN 12/08/16 Diltiazem HCl [Diltiazem 24Hr Cd] 180 mg PO DAILY 12/09/16 Famotidine 20 mg PO DAILY 12/09/16 Ferrous Gluconate 324 mg PO DAILY 12/09/16 Nitroglycerin [Nitrostat] 0.4 mg SL Q5M PRN 12/09/16 Triamterene/Hydrochlorothiazid [Triamterene-Hctz 37.5-25 mg Tb] 1 tab PO DAILY 12/09/16 Allergies/Adverse Reactions: Allergies Allergy/AdvReac Type Severity Reaction Status Date / Time No Known Drug Allergies Allergy Verified 08/28/19 05:45 Anes History & Medical History - Anesthetic History Anesthesia Complications: reports: No previous complications Family history of Anesthesia Complications: Denies Family history of Malignant Hyperthermia: Denies - Medical History Cardiovascular: reports: Hypertension, High cholesterol, Coronary artery disease (stent 20 year ago as per his .) Pulmonary: reports: None Gastrointestinal: reports: GERD Urinary: reports: None Neuro: reports: Dementia, CVA (stroke in 2017, right sided weakness. walks with a cane) Musculoskeletal: reports: Hemiplegia (right sided weakness post cva 2017) Endocrine/Autoimmune: reports: None Blood Disorders: reports: Anemia Skin: reports: None Smoking Status: Former smoker Psychosocial: reports: No issues indicated - Surgical History Cardiothoracic: Coronary stent Other Past Surgical History: hemorhoidectomy Exam Dental: WNL Mouth Openin Fingerbreadth Mallampati classification: II Thyromental Distance: 4-6 cm Respiratory: Decreased breath sounds Cardiovascular: Regular rate, Normal S1, Normal S2 Abdomen: Normal bowel sounds Extremities: No clubbing, No cyanosis, No edema, Normal pulses, No tenderness/swelling Neurological: Other (hx of cva in 2017, right sided weakness.) Mental/Cognitive Status: Normal for patient (oriented to self and place.) Cognitive Status: Dementia ( reports that patient has a history of dementia.) Plan Anesthesia Type: General Consent for Procedure(s) Verified and Reviewed: Yes Code Status: Attempt Resuscitation ASA classification: 3-Severe systemic disease Is this case an emergency?: Yes
--- NOTE | 2019-08-29 07:20 | PROVIDER PROGRESS NOTE ---
Subjective - Prog Note Date Prog Note Date: 08/29/19 Prog Note Time: 07:18 - Subjective Pt reports feeling: No change Objective - Vital Signs/Intake & Output Vital Signs: Vital Signs x48h Temp Pulse Resp BP Pulse Ox 08/29/19 02:43 156/80 H 08/29/19 00:00 37.6 C H 89 20 182/74 H 94 Intake & Output: Intake & Output 08/26/19 08/27/19 08/28/19 08/29/19 23:59 23:59 23:59 23:59 Intake Total 1248.333 0 Output Total 525 325 Balance 723.333 -325 - Lab Results Fish Bones: 08/28/19 11:20 08/28/19 06:55 Other Labs: Lab Results x24hrs 08/28/19 08/28/19 08/28/19 Range/Units 11:20 11:20 11:20 RBC 3.25 L (4.70-6.10) 10^6/uL Hgb 7.9 L (14.0-18.0) g/dL Hct 27.2 L (42.0-52.0) % Reticulocyte % (Auto) 1.61 (0.5-2.3) % Absolute Retic 0.052 (0.020-0.110) 10^6/uL APTT (24.9-33.3) secs Iron (45-182) ug/dL TIBC (250-450) ug/dL % Saturation (20-50) % Transferrin (180-329) mg/dL Ferritin (23.9-336.2) ng/mL Lactate Dehydrogenase (91-225) IU/L Vitamin B12 (180-914) pg/mL Urine Color Urine Clarity (CLEAR) Urine pH (5.0-7.5) PH Ur Specific [place] (1.002-1.030) Urine Protein (NEGATIVE) mg/dL Urine Glucose (UA) (NEGATIVE) mg/dL Urine Ketones (NEGATIVE) mg/dL Urine Occult Blood (NEGATIVE) Urine Nitrite (NEGATIVE) Urine Bilirubin (NEGATIVE) Urine Urobilinogen (NORMAL) E.U./dL Ur Leukocyte Esterase (NEGATIVE) Ur Microscopic Review Urine Culture Comments Blood Type O NEGATIVE Blood Type Recheck Antibody Screen NEGATIVE Crossmatch IS Only See Detail 08/28/19 08/28/19 08/28/19 Range/Units 07:15 06:55 06:55 RBC (4.70-6.10) 10^6/uL Hgb (14.0-18.0) g/dL Hct (42.0-52.0) % Reticulocyte % (Auto) (0.5-2.3) % Absolute Retic (0.020-0.110) 10^6/uL APTT (24.9-33.3) secs Iron (45-182) ug/dL TIBC (250-450) ug/dL % Saturation (20-50) % Transferrin (180-329) mg/dL Ferritin 14.5 L (23.9-336.2) ng/mL Lactate Dehydrogenase 147 (91-225) IU/L Vitamin B12 471 (180-914) pg/mL Urine Color YELLOW Urine Clarity CLEAR (CLEAR) Urine pH 6.0 (5.0-7.5) PH Ur Specific [place] 1.025 (1.002-1.030) Urine Protein NEGATIVE (NEGATIVE) mg/dL Urine Glucose (UA) NEGATIVE (NEGATIVE) mg/dL Urine Ketones NEGATIVE (NEGATIVE) mg/dL Urine Occult Blood [place] (NEGATIVE) Urine Nitrite NEGATIVE (NEGATIVE) Urine Bilirubin NEGATIVE (NEGATIVE) Urine Urobilinogen 0.2 (NORMAL) (NORMAL) E.U./dL Ur Leukocyte Esterase NEGATIVE (NEGATIVE) Ur Microscopic Review NOT INDICATED Urine Culture Comments NOT INDICATED Blood Type Blood Type Recheck Antibody Screen Crossmatch IS Only 08/28/19 08/28/19 08/28/19 Range/Units 06:55 06:55 06:55 RBC (4.70-6.10) 10^6/uL Hgb (14.0-18.0) g/dL Hct (42.0-52.0) % Reticulocyte % (Auto) (0.5-2.3) % Absolute Retic (0.020-0.110) 10^6/uL APTT 28.5 (24.9-33.3) secs Iron 25 L (45-182) ug/dL TIBC 399 (250-450) ug/dL % Saturation 6 L (20-50) % Transferrin 285 (180-329) mg/dL Ferritin (23.9-336.2) ng/mL Lactate Dehydrogenase (91-225) IU/L Vitamin B12 (180-914) pg/mL Urine Color Urine Clarity (CLEAR) Urine pH (5.0-7.5) PH Ur Specific [place] (1.002-1.030) Urine Protein (NEGATIVE) mg/dL Urine Glucose (UA) (NEGATIVE) mg/dL Urine Ketones (NEGATIVE) mg/dL Urine Occult Blood (NEGATIVE) Urine Nitrite (NEGATIVE) Urine Bilirubin (NEGATIVE) Urine Urobilinogen (NORMAL) E.U./dL Ur Leukocyte Esterase (NEGATIVE) Ur Microscopic Review Urine Culture Comments Blood Type Blood Type Recheck O NEGATIVE Antibody Screen Crossmatch IS Only - Other Results/Comments Other Results/Comments: EXAM: No significant change in examination Assessment/Plan - Problem List (1) Intertrochanteric fracture of right femur Impression: condition stable PLAN: Proceed with fracture fixation this AM as planned Qualifiers: Encounter type: initial encounter Fracture type: closed Fracture alignment: displaced Qualified Code(s): S72.141A - Displaced intertrochanteric fracture of right femur, initial encounter for closed fracture
[2019-08-29] MEDS ORDERED: BUPIVACAINE 0.5%-EPI 1:200000 PF 30 ML VIAL ONE (07:25)
[2019-08-29] MEDS ORDERED: LACTATED RINGERS 1,000 ML IV ONE ×3 (07:32→10:58)
[2019-08-29] MEDS ORDERED: ceFAZolin 2 GM in SODIUM CHLORIDE 0.9% 100ML 100 ML IV SCH (08:00)
[2019-08-29 08:10] LABS: HGB - HEMOGLOBIN 8.2 g/dL (14.0-18.0)
[2019-08-29] MEDS ORDERED: BUPIVACAINE 0.5%-EPI 1:200000 PF 30 ML VIAL SUBQ ONE ×2 (08:36)
[2019-08-29] MEDS ORDERED: SUGAMMADEX 200 MG/2 ML VIAL IVP ONE (10:31)
[2019-08-29] MEDS ORDERED: PROCHLORPERAZINE 10 MG/2 ML VIAL IVP PRN (11:06)
[2019-08-29] MEDS ORDERED: DOCUSATE SODIUM 100 MG CAPSULE PO PRN (11:06)
[2019-08-29] MEDS ORDERED: SENNA 8.6 MG TABLET PO PRN (11:06)
[2019-08-29] MEDS ORDERED: ONDANSETRON 4 MG/2 ML VIAL IVP PRN (11:06)
--- NOTE | 2019-08-29 11:14 | OPERATIVE REPORT ---
Operative Report - General Admit Date: 08/28/19 Procedure Date: 08/29/19 Planned Procedure: ORIF and long interTan nailing of right IT/Subtrochanteric hip fracture Pre-Op Diagnosis: Closed, angulated right IT/subtrochanteric hip fracture Procedure Performed: Open reduction and long interTan nailing of right hip fracture Post Op Diagnosis: Same - Procedure Note Primary Surgeon: Jamie Watkins MD Anesthesia Provider: Chad Varela Anesthesia Technique: General ET tube IV Fluids (mL): 1,100 Estimated Blood Loss (mL): 350 Complications: None
[2019-08-29 11:26] LABS: HGB - HEMOGLOBIN 8.2 g/dL (14.0-18.0)
[2019-08-29 11:44] LABS: ALBUMIN 2.9 g/dL (3.2-5.5); BILIRUBIN,TOTAL 1.1 mg/dL (0.2-1.0); CALCIUM 8.1 mg/dL (8.5-10.3); CREATININE 1.4 mg/dL (0.6-1.2); MAGNESIUM 1.4 mg/dL (1.7-2.8); TOTAL PROTEIN 5.9 g/dL (6.7-8.2)
[2019-08-29] MEDS: POLYETHYLENE GLYCOL 3350 17 GM PACKET PO SCH (11:45)
[2019-08-29] MEDS: fentaNYL 100 MCG/2 ML VIAL ONE ×2 (11:51→12:07)
--- NOTE | 2019-08-29 12:29 | OPERATIVE REPORT ---
DATE OF SERVICE: 08/29/2019 Physician: Contreras Watkins MD PREOPERATIVE DIAGNOSIS: Closed, angulated right intertrochanteric/subtrochanteric hip fracture. POSTOPERATIVE DIAGNOSIS: Closed, angulated right intertrochanteric/subtrochanteric hip fracture. PROCEDURE PERFORMED: Open reduction and long Intertan nailing of right hip fracture. SURGEON: Contreras Watkins MD ANESTHESIA: General. DESCRIPTION OF PROCEDURE: Patient was taken to the operating room on the morning of 08/29/2019, where he was placed under general anesthetic in the supine position without any complications. He was then positioned onto the fracture table. The unfractured left leg had the hip flexed and widely abducted and held in a well leg chaudhry. The fractured right extremity was then placed into axial traction on the fracture table with the leg internally rotated approximately 15-20 degrees. Fluoroscopic views showed an improvement in the position of the fracture, but there was still some displacement of the femoral shaft medially. We then prepped and draped the hip and lateral right leg in the usual fashion for our procedure. Making a longitudinal skin incision from the intertrochanteric region down distally, we dissected through the vastus lateralis muscle and came down to the fracture site itself. A Trammell elevator was then used to free up the proximal and distal fragments. We also removed some muscle interposition between the fragments as well. Using a variety of bone hooks and bone clamps, we were able to manipulate the fracture to obtain better alignment in both AP and lateral projections. It appears as if the fracture was out to length, though there still was some residual medial shift of the femoral shaft, albeit the alignment was much better. Part of the disposition was due to the lateral butterfly fragment, which was displaced at the level of the fracture. Satisfied with our reduction and keeping our Verbrugge clamp in place to maintain the alignment and position of the fragments. We then proceeded to place our long Intertan nail. Making an oblique skin incision proximal to the tip of the greater trochanter, we dissected down to the tip of the greater trochanter and placed the threaded tip of our guide pin at this level. Using power we then advanced our guide pin in an oblique fashion through the greater trochanter and into the proximal femoral shaft just past the level of the lesser trochanter. AP and lateral projections fluoroscopically confirmed satisfactory depth and position of our guide pin. We then used the 16 mm cannulated reamer and reamed over our guide pin. The reamer and guide pin were removed. We then proceeded to insert ball-tip guide through our reamed proximal fragment and across the fracture and went down the femoral shaft. Its position was confirmed with AP and lateral fluoroscopic views. We advanced the tip of the ball-tip guide until it was just past the level of the patella. Direct measuring guide was then used and we determined a 42 mm length Intertan nail would be utilized. We then proceeded to sequentially ream with flexible reamers, the femoral shaft. We started with a 9 mm end cutting reamer, we advanced in 1 mm increments to 12 mm. The last 12.5 and 13 mm reamers were then used to prepare the femoral shaft. We then selected for our nail a 11.5 mm diameter x 42 cm, 125 degree angle long Intertan nail. This was placed on the hide measuring machine operator apparatus. We then introduced this nail over our guide pin past the fracture site. We removed our ball-tip guide at this point, and then advanced the nail distally until the oblique hole and the proximal end of the nail was in alignment with the long axis of the femoral neck and shaft and head. Fluoroscopic views confirmed that the nail was intraosseous in AP and lateral projection and was near the distal epiphyseal scar of the femur. We then put the oval drill sleeve through the insertion/alignment heat treat operator and advanced this to the proximal lateral femoral cortex. We inserted the pin guide into our oval sleeve. We then advanced threaded-tip guidewire up through the proximal femur through the femoral neck and into the femoral head. Fluoroscopic views after minor adjustment showed that the guide pin was a proper depth to within about 3 mm of subchondral bone and was in the central axis in AP and lateral projections of the femoral neck and head. Direct measuring guide was used and we determined 100 mm subtrochanteric hip lag screw was utilized. We then reamed the proximal femur, femoral neck and femoral head using the cannulated reamer from our set over our inserted guide pin. Fluoroscopic guidance was used. We then removed the reamer and advanced the selected subtrochanteric hip lag screw, which was 11 mm x 100 mm in length. This was advanced manually. Fluoroscopic views after the insertion showed again the hip lag screw to be within about 3 mm of the subchondral bone. Satisfied with this, we then removed the insertion apparatus for our hip lag screw. We then tightened the set screw in the proximal end of our nail with the hinged screwdriver. This was tightened snugly and then backed off 90 degrees. We then removed our insertion outrigger guide from our nail with a ball-tipped screwdriver. Next, we then proceeded to remove our Verbrugge clamp from the fracture. We then abducted the leg widely and positioned our C-arm in the lateral projection. After minor adjustments, we were able to visually see nearly perfect circles in the distal holes of our inserted nail. We then manually proceeded to insert first the threaded tip drill point through both of the distal holes in our nail. After taking the measurements, we then proceeded to manually insert the selected 5 mm distal locking screws of the appropriate length. Fluoroscopic views in AP and lateral projection showed that the screws were bicortical and we are through the holes in the distal end of our nail. Satisfied with this, we then removed our screw insertion apparatus. Final x- rays were then obtained both at the distal end of our nail at the fracture site and at the hip joint in both AP and lateral projections. They again confirmed the fracture to be essentially out to length and in good alignment with satisfactory placement of our hardware. We then irrigated the wounds out thoroughly with saline, then closed the wound in layers using first running stitch of 2-0 Vicryl to close the fascia over the vastus lateralis in our mid incision. A baseball stitch of 0 Vicryl was used to approximate the fascia robert incision, both at the proximal and mid incision site. Finally, buried simple stitches of 2-0 Vicryl used to approximate subcutaneous tissue in the proximal 2 wounds. We then closed all 4 incisions with skin nickie. We injected a total of 30 mL of 0.5% Marcaine with epinephrine to provide incisional anesthesia to all her wounds. We then washed the wounds and applied Xeroform gauze, 4 x 4's and Tegaderm dressings to all the wounds. Patient transferred off the fracture table onto his bed and taken to the recovery room in satisfactory condition. ESTIMATED BLOOD LOSS: 350 mL REPLACEMENT: 1100 mL of crystalloid. INTRAOPERATIVE COMPLICATIONS: None. PLAN: Patient will be ambulatory with a walker and go toe-touch weightbearing status as tolerated. TD: 08/29/2019 11:29 MTDRoyce
[2019-08-29] MEDS ORDERED: PHENOL THROAT SPRAY 177 ML MM PRN (13:27)
--- NOTE | 2019-08-29 13:34 | XRAY Report ---
Reason: RIGHT HIP PINNING Procedure Date: 08/29/2019 Accession Number: [id number] / [id number] Procedure: XR - Hip w/Pelvis 2-3V RT CPT Code: FULL RESULT: EXAM: RIGHT HIP RADIOGRAPHY EXAM DATE: 08/29/2019 10:30 AM. CLINICAL HISTORY: Right hip pinning. COMPARISON: HIP W/PELVIS 2-3V RT 08/28/2019 5:58 AM. TECHNIQUE: 2 views. FINDINGS: Fluoroscopic images show placement of right femoral intramedullary praneeth and interlocking femoral neck screw to stabilize and reduce fracture at the right hip. Alignment appears within normal limits. IMPRESSION: Postoperative changes right hip. RADIA
--- NOTE | 2019-08-29 13:35 | XRAY Report ---
Reason: FX RT HIP Procedure Date: 08/29/2019 Accession Number: [id number] / [id number] Procedure: [place] - OR C-Arm Procedure CPT Code: FULL RESULT: EXAM: FLUOROSCOPIC GUIDANCE EXAM DATE: 08/29/2019 10:30 AM. CLINICAL HISTORY: Fracture, right hip. COMPARISON: None. FINDINGS: IMPRESSION: Fluoroscopic guidance provided for right hip pinning. Total fluoroscopy time: 2.8 minutes. Number of images: 6. RADIA
[2019-08-29] MEDS: oxyCODONE 5 MG TABLET PO PRN ×2 (16:01→20:26)
[2019-08-29] MEDS: FERROUS SULFATE 325 MG TABLET PO SCH (16:01)
[2019-08-29] MEDS ORDERED: NITROGLYCERIN SL 0.4 MG TABLET SL PRN (16:27)
--- NOTE | 2019-08-29 16:36 | PROVIDER PROGRESS NOTE ---
Assessment/Plan - Problem List (1) Intertrochanteric fracture of right femur Qualifiers: Encounter type: initial encounter Fracture type: closed Fracture alignmen t: displaced Qualified Code(s): S72.141A - Displaced intertrochanteric fracture of right femur, initial encounter for closed fracture Assessment/Plan: S/P right hip repair on today. followup orthopedics's recommendations pain control PT/OT consult with drug abuse social worker for d/c plan (2) Cerebrovascular accident (CVA) Qualifiers: CVA mechanism: occlusion Assessment/Plan: pt has hx of CVA, and right side weakness continue Plavix and lipitor, continue PT/OT (3) Anemia Qualifiers: Anemia type: unspecified type Qualified Code(s): D64.9 - Anemia, unspecified Assessment/Plan: pt has hx of anemia. pt had two unit of blood. pt is s/p of surgery. iron study reveals iron deficiency H&H monitor HGB order iron pill (4) HTN (hypertension) Qualifiers: Hypertension type: essential hypertension Qualified Code(s): I10 - Essential (primary) hypertension Assessment/Plan: stable, resume home Atenolol and Cardizem tele and vital monitor (5) Hx of coronary artery disease Assessment/Plan: stable now. pt denies chest pain, SOB now resume Plavix, Atenolol and Cardizem to control BP continue tele and vital monitor pt is DNR code status - Current Meds Current Meds: Current Medications Generic Name Dose Route Start Last Admin Trade Name Freq PRN Reason Stop Dose Admin Ferrous Sulfate 325 mg 08/29/19 17:00 08/29/19 16:01 Feosol PO 325 mg BIDWM MAGGIE Administration Morphine Sulfate 2 mg 08/28/19 10:33 08/29/19 13:40 Morphine (Carpuject) IVP 2 mg Q2HR PRN Administration Pain 8 to 10 Oxycodone HCl 5 mg 08/29/19 11:06 08/29/19 16:01 Roxicodone PO 5 mg Q4HR PRN Administration PAIN Phenol/Menthol 2 sprays 08/29/19 13:27 08/29/19 13:38 Chloraseptic MM 2 sprays Q2HR PRN Administration Throat Pain Polyethylene Glycol 17 gm 08/29/19 09:00 08/29/19 11:45 Miralax PO Not Given DAILY MAGGIE - Lab Result Fish Bone Diagrams: 08/29/19 11:23 08/29/19 11:23 - Additional Planning My Orders: My Active Orders 08/29/19 13:27 Phenol [Chloraseptic] 2 sprays MM Q2HR PRN 08/29/19 16:27 Nitroglycerin [Nitrostat] 0.4 mg SL Q5M PRN 08/29/19 16:29 Atenolol [Tenormin] 50 mg PO DAILY 08/29/19 16:32 Sodium Chloride 0.9% [Normal Saline 0.9%] 1,000 ml IV 75 mls/hr 08/29/19 17:00 Ferrous Sulfate [Feosol] 325 mg PO BIDWM Magnesium Sulfate 2 Gram [Magnesium Sulfate] 2 gm in 50 ml IV ONCE 08/30/19 05:00 CBC - COMP BLD CT W/AUTO DIFF [HEME] DAILYLAB CMP [COMPREHENSIVE METABOLIC PANEL] [CHEM] DAILYLAB 08/30/19 09:00 Clopidogrel [Plavix] 75 mg PO DAILY Escitalopram [Lexapro] 10 mg PO DAILY diltiaZEM CD [Cardizem Cd] 180 mg PO DAILY 08/31/19 05:00 CBC - COMP BLD CT W/AUTO DIFF [HEME] DAILYLAB CMP [COMPREHENSIVE METABOLIC PANEL] [CHEM] DAILYLAB 09/01/19 05:00 CBC - COMP BLD CT W/AUTO DIFF [HEME] DAILYLAB CMP [COMPREHENSIVE METABOLIC PANEL] [CHEM] DAILYLAB 09/02/19 05:00 CBC - COMP BLD CT W/AUTO DIFF [HEME] DAILYLAB CMP [COMPREHENSIVE METABOLIC PANEL] [CHEM] DAILYLAB 09/03/19 05:00 CBC - COMP BLD CT W/AUTO DIFF [HEME] DAILYLAB CMP [COMPREHENSIVE METABOLIC PANEL] [CHEM] DAILYLAB Subjective - Subjective Patient Reports: Feeling Better Objective Vital Signs: Vital Signs - 24 hr 08/28/19 08/28/19 08/28/19 16:59 17:01 18:19 Temperature 37.1 C 37.1 C 37.5 C Heart Rate 94 93 Heart Rate [ 94 Brachial] Respiratory 95 H 16 17 Rate Blood Pressure 168/68 H 160/70 H Blood Pressure 168/68 H [Right Brachial artery] O2 Saturation 08/28/19 08/28/19 08/29/19 18:37 21:20 00:00 Temperature 36.9 C 36.8 C 37.6 C H Heart Rate 98 98 Heart Rate [ 89 Brachial] Respiratory 20 17 20 Rate Blood Pressure 145/77 H 154/77 H Blood Pressure 182/74 H [Right Brachial artery] O2 Saturation 94 08/29/19 08/29/19 08/29/19 02:43 11:12 11:15 Temperature 36.6 C Heart Rate 87 88 Heart Rate [ Brachial] Respiratory 20 19 Rate Blood Pressure 129/56 L 127/57 L Blood Pressure 156/80 H [Right Brachial artery] O2 Saturation 100 100 08/29/19 08/29/19 08/29/19 11:20 11:25 11:30 Temperature 36.2 C L 36.2 C L 36.3 C L Heart Rate 88 88 88 Heart Rate [ Brachial] Respiratory 10 L 13 11 L Rate Blood Pressure 125/59 L 108/51 L 104/53 L Blood Pressure [Right Brachial artery] O2 Saturation 100 100 97 08/29/19 08/29/19 08/29/19 11:35 11:40 11:45 Temperature 36.3 C L 36.3 C L Heart Rate 88 88 87 Heart Rate [ Brachial] Respiratory 10 L 10 L 13 Rate Blood Pressure 109/57 L 124/56 L 109/52 L Blood Pressure [Right Brachial artery] O2 Saturation 98 98 97 08/29/19 08/29/19 08/29/19 11:50 11:58 12:05 Temperature 36.3 C L 36.3 C L 36.4 C L Heart Rate 92 91 88 Heart Rate [ Brachial] Respiratory 11 L 10 L 12 Rate Blood Pressure 108/55 L 99/50 L 104/54 L Blood Pressure [Right Brachial artery] O2 Saturation 97 97 98 08/29/19 08/29/19 08/29/19 12:10 12:27 13:00 Temperature 36.4 C L 37.1 C Heart Rate 96 Heart Rate [ 97 88 Brachial] Respiratory 16 16 17 Rate Blood Pressure 109/51 L Blood Pressure 126/50 L 113/45 L [Right Brachial artery] O2 Saturation 96 99 99 08/29/19 08/29/19 14:39 15:53 Temperature Heart Rate Heart Rate [ 95 101 H Brachial] Respiratory 18 17 Rate Blood Pressure Blood Pressure 105/48 L 114/48 L [Right Brachial artery] O2 Saturation 99 96 Oxygen O2 Source Room air I&O (Last 24 Hrs): Intake and Output Totals x24h 08/27/19 08/28/19 08/29/19 23:59 23:59 23:59 Intake Total 1248.333 387 Output Total 525 585 Balance 723.333 -198 General: Alert HEENT: Atraumatic Neck: Supple Lymphatic: no adenopathy Neuro: Alert Cardiovascular: Regular rate Respiratory: Chest non-tender, No respiratory distress, Breath sounds nml Abdomen: Normal bowel sounds, Soft - Results Results: Laboratory Results WBC 6.8 x10^3/uL (4.8-10.8) 08/28/19 06:55 RBC 3.25 10^6/uL (4.70-6.10) L 08/28/19 11:20 Hgb 8.2 g/dL (14.0-18.0) L 08/29/19 11:23 Hct 27.6 % (42.0-52.0) L 08/29/19 11:23 MCV 84.0 fL (80.0-94.0) 08/28/19 06:55 MCH 25.3 pg (27.0-31.0) L 08/28/19 06:55 MCHC 30.2 g/dL (32.0-36.0) L 08/28/19 06:55 RDW 14.1 % (12.0-15.0) 08/28/19 06:55 Plt Count 96 10^3/uL (130-450) L 08/28/19 06:55 MPV 8.1 fL (7.4-11.4) 08/28/19 06:55 Reticulocyte % (Auto) 1.61 % (0.5-2.3) 08/28/19 11:20 Neut # (Auto) 5.4 10^3/uL (1.5-6.6) 08/28/19 06:55 Lymph # (Auto) 0.8 10^3/uL (1.5-3.5) L 08/28/19 06:55 [place] # (Auto) 0.5 10^3/uL (0.0-1.0) 08/28/19 06:55 Eos # (Auto) 0.0 10^3/uL (0.0-0.7) 08/28/19 06:55 Baso # (Auto) 0.0 10^3/uL (0.0-0.1) 08/28/19 06:55 Absolute Nucleated RBC 0.00 x10^3/uL 08/28/19 06:55 Nucleated RBC % 0.0 /100WBC 08/28/19 06:55 Absolute Retic 0.052 10^6/uL (0.020-0.110) 08/28/19 11:20 PT 13.9 secs (9.9-12.6) H 08/28/19 06:55 INR 1.2 (0.8-1.2) 08/28/19 06:55 APTT 28.5 secs (24.9-33.3) 08/28/19 06:55 Sodium 139 mmol/L (135-145) 08/29/19 11:23 Potassium 3.5 mmol/L (3.5-5.0) 08/29/19 11:23 Chloride 106 mmol/L (101-111) 08/29/19 11:23 Carbon Dioxide 25 mmol/L (21-32) 08/29/19 11:23 Anion Gap 8.0 (6-13) 08/29/19 11:23 BUN 24 mg/dL (6-20) H 08/29/19 11:23 Creatinine 1.4 mg/dL (0.6-1.2) H 08/29/19 11:23 Estimated GFR (MDRD) 48 (>89) L 08/29/19 11:23 Glucose 156 mg/dL (70-100) H 08/29/19 11:23 Calcium 8.1 mg/dL (8.5-10.3) L 08/29/19 11:23 Magnesium 1.4 mg/dL (1.7-2.8) L 08/29/19 11:23 Iron 25 ug/dL (45-182) L 08/28/19 06:55 TIBC 399 ug/dL (250-450) 08/28/19 06:55 % Saturation 6 % (20-50) L 08/28/19 06:55 Transferrin 285 mg/dL (180-329) 08/28/19 06:55 Ferritin 14.5 ng/mL (23.9-336.2) L 08/28/19 06:55 Total Bilirubin 1.1 mg/dL (0.2-1.0) H 08/29/19 11:23 AST 31 IU/L (10-42) 08/29/19 11:23 ALT 16 IU/L (10-60) 08/29/19 11:23 Alkaline Phosphatase 65 IU/L (42-121) 08/29/19 11:23 Lactate Dehydrogenase 147 IU/L (91-225) 08/28/19 06:55 Total Protein 5.9 g/dL (6.7-8.2) L 08/29/19 11:23 Albumin 2.9 g/dL (3.2-5.5) L 08/29/19 11:23 Globulin 3.0 g/dL (2.1-4.2) 08/29/19 11:23 Albumin/Globulin Ratio 1.0 (1.0-2.2) 08/29/19 11:23 Vitamin B12 471 pg/mL (180-914) 08/28/19 06:55 Urine Color YELLOW 08/28/19 07:15 Urine Clarity CLEAR (CLEAR) 08/28/19 07:15 Urine pH 6.0 PH (5.0-7.5) 08/28/19 07:15 Ur Specific [place] 1.025 (1.002-1.030) 08/28/19 07:15 Urine Protein NEGATIVE mg/dL (NEGATIVE) 08/28/19 07:15 Urine Glucose (UA) NEGATIVE mg/dL (NEGATIVE) 08/28/19 07:15 Urine Ketones NEGATIVE mg/dL (NEGATIVE) 08/28/19 07:15 Urine Occult Blood TRACE-INTA (NEGATIVE) 08/28/19 07:15 Urine Nitrite NEGATIVE (NEGATIVE) 08/28/19 07:15 Urine Bilirubin NEGATIVE (NEGATIVE) 08/28/19 07:15 Urine Urobilinogen 0.2 (NORMAL) E.U./dL (NORMAL) 08/28/19 07:15 Ur Leukocyte Esterase NEGATIVE (NEGATIVE) 08/28/19 07:15 Ur Microscopic Review NOT INDICATED 08/28/19 07:15 Urine Culture Comments NOT INDICATED 08/28/19 07:15 Blood Type O NEGATIVE 08/28/19 11:20 Blood Type Recheck O NEGATIVE 08/28/19 06:55 Antibody Screen NEGATIVE 08/28/19 11:20 Crossmatch IS Only See Detail 08/28/19 11:20 Sepsis Event Note (H) - Evaluation Current Stage of Sepsis: Ruled out ABX Reporting Has patient been on IV antibiotics over the past 48 hours?: No Current Medications - Current Medications Current Medications: Active Medications Acetaminophen (Tylenol) 650 - 975 mg PO Q4HR PRN PRN Reason: PAIN Atorvastatin Calcium (Lipitor) 20 mg PO QPM [facility] Clopidogrel Bisulfate (Plavix) 75 mg PO DAILY [facility] Diltiazem HCl (Cardizem Cd) 180 mg PO DAILY [facility] Docusate Sodium (Colace 100mg Capsule) 100 mg PO BID PRN PRN Reason: Constipation Enoxaparin Sodium (Lovenox) 40 mg SUBQ DAILY [facility] Escitalopram Oxalate (Lexapro) 10 mg PO DAILY [facility] Ferrous Sulfate (Feosol) 325 mg PO BIDWM [facility] Last Admin: 08/29/19 16:01 Dose: 325 mg Cefazolin Sodium 2 gm/ Sodium (Chloride) 100 mls @ 200 mls/hr IV Q8H [facility] Stop: 08/30/19 00:29 Magnesium Sulfate (Magnesium Sulfate) 2 gm in 50 mls @ 50 mls/hr IV ONCE ONE Stop: 08/29/19 17:59 Sodium Chloride (Normal Saline 0.9%) 1,000 mls @ 75 mls/hr IV .[id number] [facility] Stop: 08/30/19 05:50 Morphine Sulfate (Morphine (Carpuject)) 2 mg IVP Q2HR PRN PRN Reason: Pain 8 to 10 Last Admin: 08/29/19 13:40 Dose: 2 mg Nitroglycerin (Nitrostat) 0.4 mg SL Q5M PRN PRN Reason: Chest Pain Non-Formulary Medication (Atenolol [Tenormin]) 50 mg PO DAILY [facility] Ondansetron HCl (Zofran Odt) 4 mg TL Q6HR PRN PRN Reason: Nausea / Vomiting Ondansetron HCl (Zofran Inj) 4 mg IVP Q6HR PRN PRN Reason: Nausea / Vomiting Oxycodone HCl (Roxicodone) 5 mg PO Q4HR PRN PRN Reason: PAIN Last Admin: 08/29/19 16:01 Dose: 5 mg Phenol/Menthol (Chloraseptic) 2 sprays MM Q2HR PRN PRN Reason: Throat Pain Last Admin: 08/29/19 13:38 Dose: 2 sprays Polyethylene Glycol (Miralax) 17 gm PO DAILY [facility] Last Admin: 08/29/19 11:45 Dose: Not Given Prochlorperazine Edisylate (Compazine Inj) 10 mg IVP Q6HR PRN PRN Reason: Nausea / Vomiting Senna (Senokot) 17.2 mg PO Q12H PRN PRN Reason: Constipation Sodium Chloride (Normal Saline Flush 0.9%) 10 ml IVP 0100,0900,1700 [facility] Sodium Chloride (Normal Saline Flush 0.9%) 10 ml IVP PRN PRN PRN Reason: NEEDED PER PROVIDER ORDERS Clopidogrel [Plavix] 75 mg PO DAILY 12/08/16 traMADol [Ultram] 50 mg PO Q6H PRN 12/08/16 Diltiazem HCl [Diltiazem 24Hr Cd] 180 mg PO DAILY 12/09/16 Nitroglycerin [Nitrostat] 0.4 mg SL Q5M PRN 12/09/16 Atenolol [Tenormin] 50 mg PO DAILY 08/29/19 Atorvastatin Calcium 20 mg PO QPM 08/29/19 Cholecalciferol (Vitamin D3) [Vitamin D] 2,000 unit PO DAILY 08/29/19 Cyanocobalamin (Vitamin B-12) [Vitamin B-12 (1000 mcg sublingual)] 1,000 mcg SL DAILY 08/29/19 Escitalopram [Lexapro] 10 mg PO DAILY 08/29/19 Furosemide [Lasix] 80 mg PO DAILY 08/29/19 Pantoprazole [Protonix] 40 mg PO QDAC 08/29/19 Potassium Chloride 20 meq PO DAILYWM 08/29/19
[2019-08-29] MEDS: ceFAZolin 2 GM in SODIUM CHLORIDE 0.9% 100ML 100 ML IV SCH (16:59)
[2019-08-29] MEDS ORDERED: MAGNESIUM SULFATE 2 GRAM 2 GM/50 ML BAG IV ONE (17:00)
[2019-08-29] MEDS ORDERED: DEXAMETHASONE 4 MG/ML VIAL IVP ONE (17:13)
[2019-08-29] MEDS ORDERED: PROPOFOL 200 MG/20 ML VIAL IVP ONE (17:13)
[2019-08-29] MEDS ORDERED: ETOMIDATE 20 MG/10ML VIAL IV ONE (17:13)
[2019-08-29] MEDS ORDERED: fentaNYL 100 MCG/2 ML VIAL IVP ONE (17:13)
[2019-08-29] MEDS ORDERED: ROCURONIUM 50 MG/5 ML VIAL IVP ONE (17:13)
[2019-08-29] MEDS: ATENOLOL 25 MG TABLET PO SCH (17:19)
[2019-08-29] MEDS ORDERED: SODIUM CHLORIDE 0.9% 500 ML IV ONE (19:06)
[2019-08-29] MEDS: ATORVASTATIN 40 MG TABLET PO SCH (20:26)
[2019-08-29 20:48] LABS: HGB - HEMOGLOBIN 7.3 g/dL (14.0-18.0)
[2019-08-29] MEDS ORDERED: SODIUM CHLORIDE 0.9% 500 ML ONE (22:12)
[2019-08-30] MEDS: ceFAZolin 2 GM in SODIUM CHLORIDE 0.9% 100ML 100 ML IV SCH (00:07)
[2019-08-30] MEDS: SODIUM CHLORIDE FLUSH 0.9% 10 ML SYRINGE IVP SCH ×3 (00:08→16:48)
[2019-08-30] MEDS: MORPHINE 2 MG/ML CARPUJECT IVP PRN ×3 (03:23→22:19)
[2019-08-30] MEDS ORDERED: ASPIRIN EC 325 MG TABLET PO SCH ×2 (06:30→08:00)
[2019-08-30 07:01] LABS: BASOPHILS % (AUTO) 0.2 %; LYMPHOCYTES % (AUTO) 9.2 %; MEAN CORPUSCULAR HEMOGLOBIN 26.7 pg (27.0-31.0); MEAN CORPUSCULAR HGB CONC 29.9 g/dL (32.0-36.0); MEAN CORPUSCULAR VOLUME 89.3 fL (80.0-94.0); MEAN PLATELET VOLUME 9.7 fL (7.4-11.4); MONOCYTES # (AUTO) 1.3 10^3/uL (0.0-1.0); MONOCYTES % (AUTO) 12.5 %; NEUTROPHILS # (AUTO) 8.2 10^3/uL (1.5-6.6); NEUTROPHILS % (AUTO) 77.4 %; PLT - PLATELET COUNT 81 10^3/uL (130-450); RED CELL DISTRIBUTION WIDTH 14.9 % (12.0-15.0); WHITE BLOOD COUNT 10.5 x10^3/uL (4.8-10.8)
[2019-08-30 07:45] LABS: ALBUMIN 2.7 g/dL (3.2-5.5); BILIRUBIN,TOTAL 0.9 mg/dL (0.2-1.0); CREATININE 1.7 mg/dL (0.6-1.2); MAGNESIUM 1.9 mg/dL (1.7-2.8); TOTAL PROTEIN 5.4 g/dL (6.7-8.2)
[2019-08-30] MEDS: ESCITALOPRAM 10 MG TABLET PO SCH (08:47)
[2019-08-30] MEDS: ACETAMINOPHEN 325 MG TABLET PO PRN (08:48)
[2019-08-30] MEDS: ATENOLOL 25 MG TABLET PO SCH (08:48)
[2019-08-30] MEDS: FERROUS SULFATE 325 MG TABLET PO SCH ×2 (08:48→17:57)
[2019-08-30] MEDS: diltiaZEM CD 180 MG CAPSULE PO SCH (08:48)
[2019-08-30] MEDS: POLYETHYLENE GLYCOL 3350 17 GM PACKET PO SCH (08:49)
[2019-08-30] MEDS ORDERED: CLOPIDOGREL 75 MG TABLET PO SCH ×2 (09:00→11:00)
[2019-08-30] MEDS ORDERED: ENOXAPARIN 40 MG/0.4 ML SYRINGE SUBQ SCH (09:00)
[2019-08-30 10:00] LABS: HGB - HEMOGLOBIN 8.5 g/dL (14.0-18.0)
[2019-08-30] MEDS ORDERED: HEPARIN 25000UNITS/500ML (D5W) 25,000 UNIT/500 ML BAG IV STA (11:19)
--- NOTE | 2019-08-30 11:22 | PROVIDER PROGRESS NOTE ---
Subjective - Prog Note Date Prog Note Date: 08/30/19 Prog Note Time: 11:18 - Subjective Pt reports feeling: Improved (Less hip pain today. Does have some chest pain now (Jean notified)) Objective - Vital Signs/Intake & Output Vital Signs: Vital Signs x48h Temp Pulse Pulse Resp BP BP Pulse Ox 08/30/19 08:00 36.4 C L 73 14 121/43 L 92 08/30/19 05:15 36.4 C L 69 15 131/50 H 08/30/19 05:14 36.4 C L 69 15 131/50 H Intake & Output: Intake & Output 08/27/19 08/28/19 08/29/19 08/30/19 23:59 23:59 23:59 23:59 Intake Total 3719.885 0469.167 2785.833 Output Total 525 735 250 Balance 862.760 8560.167 2535.833 - Lab Results Fish Bones: 08/30/19 09:55 08/30/19 06:40 Other Labs: Lab Results x24hrs 08/30/19 08/30/19 08/30/19 Range/Units 09:55 06:40 06:40 WBC (4.8-10.8) x10^3/uL RBC (4.70-6.10) 10^6/uL Hgb 8.5 L (14.0-18.0) g/dL Hct 28.2 L (42.0-52.0) % MCV (80.0-94.0) fL MCH (27.0-31.0) pg MCHC (32.0-36.0) g/dL RDW (12.0-15.0) % Plt Count (130-450) 10^3/uL MPV (7.4-11.4) fL Neut # (Auto) (1.5-6.6) 10^3/uL Lymph # (Auto) (1.5-3.5) 10^3/uL Glynn # (Auto) (0.0-1.0) 10^3/uL Eos # (Auto) (0.0-0.7) 10^3/uL Baso # (Auto) (0.0-0.1) 10^3/uL Absolute Nucleated RBC x10^3/uL Nucleated RBC % /100WBC Sodium 137 (135-145) mmol/L Potassium 3.8 (3.5-5.0) mmol/L Chloride 105 (101-111) mmol/L Carbon Dioxide 23 (21-32) mmol/L Anion Gap 9.0 (6-13) BUN 38 H (6-20) mg/dL Creatinine 1.7 H (0.6-1.2) mg/dL Estimated GFR (MDRD) 38 L (>89) Glucose 103 H (70-100) mg/dL Calcium 8.0 L (8.5-10.3) mg/dL Magnesium 1.9 (1.7-2.8) mg/dL Total Bilirubin 0.9 (0.2-1.0) mg/dL AST 337 H (10-42) IU/L ALT 259 H (10-60) IU/L Alkaline Phosphatase 51 (42-121) IU/L Troponin I High Sens 2789.5 H* (2.3-19.7) pg/mL Total Protein 5.4 L (6.7-8.2) g/dL Albumin 2.7 L (3.2-5.5) g/dL Globulin 2.7 (2.1-4.2) g/dL Albumin/Globulin Ratio 1.0 (1.0-2.2) Blood Type Antibody Screen Crossmatch IS Only 08/30/19 08/29/19 08/29/19 Range/Units 06:40 23:59 20:44 WBC 10.5 (4.8-10.8) x10^3/uL RBC 3.00 L (4.70-6.10) 10^6/uL Hgb 8.0 L 7.3 L (14.0-18.0) g/dL Hct 26.8 L 24.4 L (42.0-52.0) % MCV 89.3 (80.0-94.0) fL MCH 26.7 L (27.0-31.0) pg MCHC 29.9 L (32.0-36.0) g/dL RDW 14.9 (12.0-15.0) % Plt Count 81 L (130-450) 10^3/uL MPV 9.7 (7.4-11.4) fL Neut # (Auto) 8.2 H (1.5-6.6) 10^3/uL Lymph # (Auto) 1.0 L (1.5-3.5) 10^3/uL Glynn # (Auto) 1.3 H (0.0-1.0) 10^3/uL Eos # (Auto) 0.0 (0.0-0.7) 10^3/uL Baso # (Auto) 0.0 (0.0-0.1) 10^3/uL Absolute Nucleated RBC 0.00 x10^3/uL Nucleated RBC % 0.0 /100WBC Sodium (135-145) mmol/L Potassium (3.5-5.0) mmol/L Chloride (101-111) mmol/L Carbon Dioxide (21-32) mmol/L Anion Gap (6-13) BUN (6-20) mg/dL Creatinine (0.6-1.2) mg/dL Estimated GFR (MDRD) (>89) Glucose (70-100) mg/dL Calcium (8.5-10.3) mg/dL Magnesium (1.7-2.8) mg/dL Total Bilirubin (0.2-1.0) mg/dL AST (10-42) IU/L ALT (10-60) IU/L Alkaline Phosphatase (42-121) IU/L Troponin I High Sens 1569.5 H* (2.3-19.7) pg/mL Total Protein (6.7-8.2) g/dL Albumin (3.2-5.5) g/dL Globulin (2.1-4.2) g/dL Albumin/Globulin Ratio (1.0-2.2) Blood Type Antibody Screen Crossmatch IS Only 08/29/19 08/29/19 08/29/19 Range/Units 20:44 11:23 11:23 WBC (4.8-10.8) x10^3/uL RBC (4.70-6.10) 10^6/uL Hgb 8.2 L (14.0-18.0) g/dL Hct 27.6 L (42.0-52.0) % MCV (80.0-94.0) fL MCH (27.0-31.0) pg MCHC (32.0-36.0) g/dL RDW (12.0-15.0) % Plt Count (130-450) 10^3/uL MPV (7.4-11.4) fL Neut # (Auto) (1.5-6.6) 10^3/uL Lymph # (Auto) (1.5-3.5) 10^3/uL Glynn # (Auto) (0.0-1.0) 10^3/uL Eos # (Auto) (0.0-0.7) 10^3/uL Baso # (Auto) (0.0-0.1) 10^3/uL Absolute Nucleated RBC x10^3/uL Nucleated RBC % /100WBC Sodium 139 (135-145) mmol/L Potassium 3.5 (3.5-5.0) mmol/L Chloride 106 (101-111) mmol/L Carbon Dioxide 25 (21-32) mmol/L Anion Gap 8.0 (6-13) BUN 24 H (6-20) mg/dL Creatinine 1.4 H (0.6-1.2) mg/dL Estimated GFR (MDRD) 48 L (>89) Glucose 156 H (70-100) mg/dL Calcium 8.1 L (8.5-10.3) mg/dL Magnesium 1.4 L (1.7-2.8) mg/dL Total Bilirubin 1.1 H (0.2-1.0) mg/dL AST 31 (10-42) IU/L ALT 16 (10-60) IU/L Alkaline Phosphatase 65 (42-121) IU/L Troponin I High Sens 989.8 H* (2.3-19.7) pg/mL Total Protein 5.9 L (6.7-8.2) g/dL Albumin 2.9 L (3.2-5.5) g/dL Globulin 3.0 (2.1-4.2) g/dL Albumin/Globulin Ratio 1.0 (1.0-2.2) Blood Type Antibody Screen Crossmatch IS Only 08/29/19 Range/Units 11:20 WBC (4.8-10.8) x10^3/uL RBC (4.70-6.10) 10^6/uL Hgb (14.0-18.0) g/dL Hct (42.0-52.0) % MCV (80.0-94.0) fL MCH (27.0-31.0) pg MCHC (32.0-36.0) g/dL RDW (12.0-15.0) % Plt Count (130-450) 10^3/uL MPV (7.4-11.4) fL Neut # (Auto) (1.5-6.6) 10^3/uL Lymph # (Auto) (1.5-3.5) 10^3/uL Glynn # (Auto) (0.0-1.0) 10^3/uL Eos # (Auto) (0.0-0.7) 10^3/uL Baso # (Auto) (0.0-0.1) 10^3/uL Absolute Nucleated RBC x10^3/uL Nucleated RBC % /100WBC Sodium (135-145) mmol/L Potassium (3.5-5.0) mmol/L Chloride (101-111) mmol/L Carbon Dioxide (21-32) mmol/L Anion Gap (6-13) BUN (6-20) mg/dL Creatinine (0.6-1.2) mg/dL Estimated GFR (MDRD) (>89) Glucose (70-100) mg/dL Calcium (8.5-10.3) mg/dL Magnesium (1.7-2.8) mg/dL Total Bilirubin (0.2-1.0) mg/dL AST (10-42) IU/L ALT (10-60) IU/L Alkaline Phosphatase (42-121) IU/L Troponin I High Sens (2.3-19.7) pg/mL Total Protein (6.7-8.2) g/dL Albumin (3.2-5.5) g/dL Globulin (2.1-4.2) g/dL Albumin/Globulin Ratio (1.0-2.2) Blood Type Cancelled Antibody Screen Cancelled Crossmatch IS Only See Detail - Other Results/Comments Other Results/Comments: EXAM: Dressing changed this AM. Currently dry. Mild pain with hip rotation. Moves toes well. Sensation ok. Good cap filling Sepsis Event Note (H) - Evaluation Current Stage of Sepsis: Ruled out Assessment/Plan - Problem List (1) Intertrochanteric fracture of right femur Impression: Hip fracture stabl;e PLAN: Apparently had a KS last PM, leg condition is stable and blood loss postop also appear stable as well. Treat KS as medically indicated. May begin heparin drip as needed; ok from orthopedic standpoint. Qualifiers: Encounter type: initial encounter Fracture type: closed Fracture alignment: displaced Qualified Code(s): S72.141A - Displaced intertrochanteric fracture of right femur, initial encounter for closed fracture
[2019-08-30] MEDS: MAGNESIUM OXIDE 400 MG TABLET PO SCH (12:20)
[2019-08-30] MEDS: HEPARIN 25000UNITS/500ML (D5W) 25,000 UNIT/500 ML BAG IV SCH (12:27)
[2019-08-30 13:20] LABS: HGB - HEMOGLOBIN 8.6 g/dL (14.0-18.0); MEAN CORPUSCULAR HEMOGLOBIN 27.7 pg (27.0-31.0); MEAN CORPUSCULAR HGB CONC 30.4 g/dL (32.0-36.0); RED BLOOD COUNT 3.11 10^6/uL (4.70-6.10); RED CELL DISTRIBUTION WIDTH 14.9 % (12.0-15.0); WHITE BLOOD COUNT 12.4 x10^3/uL (4.8-10.8)
--- NOTE | 2019-08-30 14:01 | PROVIDER PROGRESS NOTE ---
Subjective - Prog Note Date Prog Note Date: 08/30/19 - Subjective Pt reports feeling: Worse Subjective: pt complain chest pain. Pt's troponin was elevated to 2800, EKG initially indicate NSTEM UT. Called surgeon Dr. Watkins, he agreed and recommended Heparin d rip, ok from orthopedic standpoint. Called to baker test Dr. Mckeon, recommended pt continue medical management, no transferred. Discussed with pt and pt's , with nurse Bred, the risks and benefits for treatment of acute NSTEM UT while pt is at high risk of bleeding. Both pt and his understood pt could be if no treatment for his UT, but if treatment for his UT pt is at the high risk of bleeding which could lead to the . pt and his agreed to treat the UT and understood the risks of the treatment Current Medications - Current Medications Current Medications: Active Medications Acetaminophen (Tylenol) 650 - 975 mg PO Q4HR PRN PRN Reason: PAIN Last Admin: 08/30/19 08:48 Dose: 650 mg Atenolol (Tenormin) 50 mg PO DAILY ON LICENSE OF [facility] Last Admin: 08/30/19 08:48 Dose: 50 mg Atorvastatin Calcium (Lipitor) 20 mg PO QPM ON LICENSE OF [facility] Last Admin: 08/29/19 20:26 Dose: 20 mg Diltiazem HCl (Cardizem Cd) 180 mg PO DAILY ON LICENSE OF [facility] Last Admin: 08/30/19 08:48 Dose: 180 mg Docusate Sodium (Colace 100mg Capsule) 100 mg PO BID PRN PRN Reason: Constipation Escitalopram Oxalate (Lexapro) 10 mg PO DAILY ON LICENSE OF [facility] Last Admin: 08/30/19 08:47 Dose: 10 mg Ferrous Sulfate (Feosol) 325 mg PO BIDWM ON LICENSE OF [facility] Last Admin: 08/30/19 08:48 Dose: 325 mg Heparin Sodium (Porcine) () 2,600 unit 25 unit/kg (2600 unit) IVP Q6H PRN PRN Reason: ANTI-XA < 0.2 Heparin Sodium/Dextrose () 25,000 unit in 500 mls @ 24.96 mls/hr IV .Q20H2M ON LICENSE OF [facility]; Protocol Last Admin: 08/30/19 12:27 Dose: 12 unit/kg/hr, 24.96 mls/hr Sodium Chloride (Normal Saline 0.9%) 1,000 mls @ 83.333 mls/hr IV .Q12H ON LICENSE OF [facility] Stop: 08/31/19 13:59 Last Admin: 08/30/19 14:36 Dose: 83.333 mls/hr Magnesium Oxide (Mag Ox) 400 mg PO QDLUNCH ON LICENSE OF [facility] Last Admin: 08/30/19 12:20 Dose: 400 mg Morphine Sulfate (Morphine (Carpuject)) 2 mg IVP Q2HR PRN PRN Reason: Pain 8 to 10 Last Admin: 08/30/19 03:23 Dose: 2 mg Nitroglycerin (Nitrostat) 0.4 mg SL Q5M PRN PRN Reason: Chest Pain Ondansetron HCl (Zofran Odt) 4 mg TL Q6HR PRN PRN Reason: Nausea / Vomiting Ondansetron HCl (Zofran Inj) 4 mg IVP Q6HR PRN PRN Reason: Nausea / Vomiting Oxycodone HCl (Roxicodone) 5 mg PO Q4HR PRN PRN Reason: PAIN Last Admin: 08/29/19 20:26 Dose: 5 mg Phenol/Menthol (Chloraseptic) 2 sprays MM Q2HR PRN PRN Reason: Throat Pain Last Admin: 08/29/19 13:38 Dose: 2 sprays Polyethylene Glycol (Miralax) 17 gm PO DAILY ON LICENSE OF [facility] Last Admin: 08/30/19 08:49 Dose: Not Given Prochlorperazine Edisylate (Compazine Inj) 10 mg IVP Q6HR PRN PRN Reason: Nausea / Vomiting Senna (Senokot) 17.2 mg PO Q12H PRN PRN Reason: Constipation Sodium Chloride (Normal Saline Flush 0.9%) 10 ml IVP 0100,0900,1700 ON LICENSE OF [facility] Last Admin: 08/30/19 08:49 Dose: 10 ml Sodium Chloride (Normal Saline Flush 0.9%) 10 ml IVP PRN PRN PRN Reason: NEEDED PER PROVIDER ORDERS Clopidogrel [Plavix] 75 mg PO DAILY 12/08/16 traMADol [Ultram] 50 mg PO Q6H PRN 12/08/16 Diltiazem HCl [Diltiazem 24Hr Cd] 180 mg PO DAILY 12/09/16 Nitroglycerin [Nitrostat] 0.4 mg SL Q5M PRN 12/09/16 Atenolol [Tenormin] 50 mg PO DAILY 08/29/19 Atorvastatin Calcium 20 mg PO QPM 08/29/19 Cholecalciferol (Vitamin D3) [Vitamin D] 2,000 unit PO DAILY 08/29/19 Cyanocobalamin (Vitamin B-12) [Vitamin B-12 (1000 mcg sublingual)] 1,000 mcg SL DAILY 08/29/19 Escitalopram [Lexapro] 10 mg PO DAILY 08/29/19 Furosemide [Lasix] 80 mg PO DAILY 08/29/19 Pantoprazole [Protonix] 40 mg PO QDAC 08/29/19 Potassium Chloride 20 meq PO DAILYWM 08/29/19 Objective - Vital Signs/Intake & Output Reviewed Vital Signs: Yes Vital Signs: Vital Signs x48h Temp Pulse Resp BP Pulse Ox 08/30/19 08:00 36.4 C L 73 14 121/43 L 92 Intake & Output: Intake & Output 08/27/19 08/28/19 08/29/19 08/30/19 23:59 23:59 23:59 23:59 Intake Total 3544.632 8078.167 2785.833 Output Total 525 735 250 Balance 970.601 4246.167 2535.833 - Objective General Appearance: positive: Alert, Mild distress. negative: Lethargic Eyes Bilateral: positive: Normal inspection ENT: positive: ENT inspection nml, No signs of dehydration. negative: Purulent nasal drainage Neck: positive: Nml inspection, Thyroid nml, No JVD, Trachea midline. negative: Thyromegaly, Lymphadenopathy (R), Lymphadenopathy (L), Stiff neck, Tracheal deviation Respiratory: positive: Chest non-tender, No respiratory distress, Breath sounds nml. negative: Wheezes, Rales, Rhonchi Cardiovascular: positive: Regular rate & rhythm. negative: Irregularly irregul ar, Extrasystoles, Tachycardia, Bradycardia, Systolic murmur, Diastolic murmur Peripheral Pulses: 2+ Radial (R), 2+ Radial (L), 2+ Dorsalis pedis (R), 2+ Dorsalis pedis (L) Abdomen: positive: Non-tender, No organomegaly, Nml bowel sounds, No distention. negative: Tenderness, Guarding, Rebound Back: positive: Nml inspection. negative: CVA tenderness (R) Skin: positive: Color nml, No rash, Warm, Dry. negative: Cyanosis, Diaphoresis, Pallor Extremities: positive: Non-tender. negative: Calf tenderness, Flako's sign/cords Neurologic/Psychiatric: positive: Oriented x3. negative: Weakness, Sensory loss, Facial droop, Slurred/abnml speech, Depressed mood/affect - Lab Results Fish Bones: 08/30/19 09:55 08/30/19 06:40 Other Labs: Lab Results x24hrs 08/30/19 08/30/19 08/30/19 Range/Units 11:40 09:55 06:40 WBC 12.4 H (4.8-10.8) x10^3/uL RBC 3.11 L (4.70-6.10) 10^6/uL Hgb 8.6 L 8.5 L (14.0-18.0) g/dL Hct 28.3 L 28.2 L (42.0-52.0) % MCV 91.0 (80.0-94.0) fL MCH 27.7 (27.0-31.0) pg MCHC 30.4 L (32.0-36.0) g/dL RDW 14.9 (12.0-15.0) % Plt Count 98 L (130-450) 10^3/uL MPV 10.0 (7.4-11.4) fL Neut # (Auto) (1.5-6.6) 10^3/uL Lymph # (Auto) (1.5-3.5) 10^3/uL [place]ati # (Auto) (0.0-1.0) 10^3/uL Eos # (Auto) (0.0-0.7) 10^3/uL Baso # (Auto) (0.0-0.1) 10^3/uL Absolute Nucleated RBC x10^3/uL Nucleated RBC % /100WBC Sodium (135-145) mmol/L Potassium (3.5-5.0) mmol/L Chloride (101-111) mmol/L Carbon Dioxide (21-32) mmol/L Anion Gap (6-13) BUN (6-20) mg/dL Creatinine (0.6-1.2) mg/dL Estimated GFR (MDRD) (>89) Glucose (70-100) mg/dL Calcium (8.5-10.3) mg/dL Magnesium (1.7-2.8) mg/dL Total Bilirubin (0.2-1.0) mg/dL AST (10-42) IU/L ALT (10-60) IU/L Alkaline Phosphatase (42-121) IU/L Troponin I High Sens 2789.5 H* (2.3-19.7) pg/mL Total Protein (6.7-8.2) g/dL Albumin (3.2-5.5) g/dL Globulin (2.1-4.2) g/dL Albumin/Globulin Ratio (1.0-2.2) Blood Type Antibody Screen Crossmatch IS Only 08/30/19 08/30/19 08/29/19 Range/Units 06:40 06:40 23:59 WBC 10.5 (4.8-10.8) x10^3/uL RBC 3.00 L (4.70-6.10) 10^6/uL Hgb 8.0 L (14.0-18.0) g/dL Hct 26.8 L (42.0-52.0) % MCV 89.3 (80.0-94.0) fL MCH 26.7 L (27.0-31.0) pg MCHC 29.9 L (32.0-36.0) g/dL RDW 14.9 (12.0-15.0) % Plt Count 81 L (130-450) 10^3/uL MPV 9.7 (7.4-11.4) fL Neut # (Auto) 8.2 H (1.5-6.6) 10^3/uL Lymph # (Auto) 1.0 L (1.5-3.5) 10^3/uL [place]ati # (Auto) 1.3 H (0.0-1.0) 10^3/uL Eos # (Auto) 0.0 (0.0-0.7) 10^3/uL Baso # (Auto) 0.0 (0.0-0.1) 10^3/uL Absolute Nucleated RBC 0.00 x10^3/uL Nucleated RBC % 0.0 /100WBC Sodium 137 (135-145) mmol/L Potassium 3.8 (3.5-5.0) mmol/L Chloride 105 (101-111) mmol/L Carbon Dioxide 23 (21-32) mmol/L Anion Gap 9.0 (6-13) BUN 38 H (6-20) mg/dL Creatinine 1.7 H (0.6-1.2) mg/dL Estimated GFR (MDRD) 38 L (>89) Glucose 103 H (70-100) mg/dL Calcium 8.0 L (8.5-10.3) mg/dL Magnesium 1.9 (1.7-2.8) mg/dL Total Bilirubin 0.9 (0.2-1.0) mg/dL AST 337 H (10-42) IU/L ALT 259 H (10-60) IU/L Alkaline Phosphatase 51 (42-121) IU/L Troponin I High Sens 1569.5 H* (2.3-19.7) pg/mL Total Protein 5.4 L (6.7-8.2) g/dL Albumin 2.7 L (3.2-5.5) g/dL Globulin 2.7 (2.1-4.2) g/dL Albumin/Globulin Ratio 1.0 (1.0-2.2) Blood Type Antibody Screen Crossmatch IS Only 08/29/19 08/29/19 08/29/19 Range/Units 20:44 20:44 11:20 WBC (4.8-10.8) x10^3/uL RBC (4.70-6.10) 10^6/uL Hgb 7.3 L (14.0-18.0) g/dL Hct 24.4 L (42.0-52.0) % MCV (80.0-94.0) fL MCH (27.0-31.0) pg MCHC (32.0-36.0) g/dL RDW (12.0-15.0) % Plt Count (130-450) 10^3/uL MPV (7.4-11.4) fL Neut # (Auto) (1.5-6.6) 10^3/uL Lymph # (Auto) (1.5-3.5) 10^3/uL [place] # (Auto) (0.0-1.0) 10^3/uL Eos # (Auto) (0.0-0.7) 10^3/uL Baso # (Auto) (0.0-0.1) 10^3/uL Absolute Nucleated RBC x10^3/uL Nucleated RBC % /100WBC Sodium (135-145) mmol/L Potassium (3.5-5.0) mmol/L Chloride (101-111) mmol/L Carbon Dioxide (21-32) mmol/L Anion Gap (6-13) BUN (6-20) mg/dL Creatinine (0.6-1.2) mg/dL Estimated GFR (MDRD) (>89) Glucose (70-100) mg/dL Calcium (8.5-10.3) mg/dL Magnesium (1.7-2.8) mg/dL Total Bilirubin (0.2-1.0) mg/dL AST (10-42) IU/L ALT (10-60) IU/L Alkaline Phosphatase (42-121) IU/L Troponin I High Sens 989.8 H* (2.3-19.7) pg/mL Total Protein (6.7-8.2) g/dL Albumin (3.2-5.5) g/dL Globulin (2.1-4.2) g/dL Albumin/Globulin Ratio (1.0-2.2) Blood Type Cancelled Antibody Screen Cancelled Crossmatch IS Only See Detail ABX Reporting Has patient been on IV antibiotics over the past 48 hours?: No Sepsis Event Note (H) - Evaluation Current Stage of Sepsis: Ruled out Assessment/Plan - Problem List (1) Cerebrovascular accident (CVA) Qualifiers: CVA mechanism: occlusion (2) Anemia Qualifiers: Anemia type: unspecified type Qualified Code(s): D64.9 - Anemia, unspecified (3) HTN (hypertension) Qualifiers: Hypertension type: essential hypertension Qualified Code(s): I10 - Essential (primary) hypertension (5) NSTEMI (non-ST elevated myocardial infarction) Impression: 08/30 persistent elevated troponin upto 2800, changed EKG with ST depression, and pt complain of chest pain. pt is s/p hip repair on yesterday. pt had hx of CAD with stent about 10 yrs. Dehydrogenation Operator Head was called, recommend medical treatment in our hospital now. surgeon agreed with heparin drip. pt and his agreed to treat UT and understood the treatment risk of bleeding. plan: heparin drip, followup protocol. pt is hemodynamic stable now. if not stab le, will transfer to ICU. pt's code status is DNR/DNI, confirmed with pt and his with code status continue tele and vital monitor continue H&H (2) Intertrochanteric fracture of right femur 08/30 hold PT/OT now because of UT S/P right hip repair on today. followup orthopedics's recommendations pain control PT/OT consult with transition social worker for d/c plan (3) Cerebrovascular accident (CVA) pt has hx of CVA, and right side weakness continue Plavix and lipitor, continue PT/OT (4) Anemia 08/30 improved, HGB is 8.5 now, continue lab monitor pt has hx of anemia. pt had two unit of blood. pt is s/p of surgery. iron study reveals iron deficiency H&H monitor HGB order iron pill (5) HTN (hypertension) stable, resume home Atenolol and Cardizem tele and vital monitor (6) Hx of coronary artery disease Assessment/Plan: stable now. pt denies chest pain, SOB now resume Plavix, Atenolol and Cardizem to control BP continue tele and vital monitor pt is DNR code status (7) confused 08/30 pt became confused this afternoon. order CT of brain, will followup
[2019-08-30] MEDS: SODIUM CHLORIDE 0.9% 1,000 ML IV SCH (14:36)
--- NOTE | 2019-08-30 16:26 | CT Report ---
Reason: acute confused Procedure Date: 08/30/2019 Accession Number: [id number] / [id number] Procedure: CT - HEAD WO CPT Code: FULL RESULT: EXAM: CT HEAD EXAM DATE: 08/30/2019 04:15 PM. CLINICAL HISTORY: Transient alteration in awareness. COMPARISON: HEAD W/O 08/28/2019 7:22 AM. TECHNIQUE: Multiaxial CT images were obtained from the foramen magnum to the vertex. Reformats: Sagittal and coronal. IV contrast: None. In accordance with CT protocol optimization, one or more of the following dose reduction techniques were utilized for this exam: automated exposure control, adjustment of mA and/or KV based on patient size, or use of iterative reconstructive technique. FINDINGS: Parenchyma: No intraparenchymal hemorrhage. No evidence of mass, midline shift, or CT findings of acute infarction. Frey-white differentiation is distinct. Diffuse chronic microangiopathic white matter changes are evident. Extraaxial Spaces: Normal for age. No subdural or epidural collections identified. Ventricles: The ventricles and cortical sulci are enlarged, consistent with age-related tissue loss. Sinuses and orbits: Imaged paranasal sinuses, orbits, and mastoids show no significant abnormality. Bones: No evidence of fracture or calvarial defect. Other: None. IMPRESSION: Generalized age-related cortical atrophic changes without evidence of acute intracranial abnormality. RADIA
[2019-08-30] MEDS: ATORVASTATIN 40 MG TABLET PO SCH (22:12)
[2019-08-30] MEDS: SODIUM CHLORIDE FLUSH 0.9% 10 ML SYRINGE IVP PRN (22:19)
[2019-08-30 23:45] LABS: HGB - HEMOGLOBIN 7.7 g/dL (14.0-18.0)
[2019-08-31] MEDS: oxyCODONE 5 MG TABLET PO PRN (01:07)
[2019-08-31] MEDS: SODIUM CHLORIDE 0.9% 1,000 ML IV SCH (04:04)
[2019-08-31 05:56] LABS: BASOPHILS % (AUTO) 0.3 %; EOSINOPHILS # (AUTO) 0.1 10^3/uL (0.0-0.7); EOSINOPHILS % (AUTO) 1.4 %; HGB - HEMOGLOBIN 7.2 g/dL (14.0-18.0); LYMPHOCYTES # (AUTO) 1.2 10^3/uL (1.5-3.5); LYMPHOCYTES % (AUTO) 15.3 %; MEAN CORPUSCULAR HEMOGLOBIN 27.6 pg (27.0-31.0); MEAN CORPUSCULAR HGB CONC 30.8 g/dL (32.0-36.0); MEAN CORPUSCULAR VOLUME 89.7 fL (80.0-94.0); MEAN PLATELET VOLUME 9.6 fL (7.4-11.4); NEUTROPHILS # (AUTO) 5.4 10^3/uL (1.5-6.6); NEUTROPHILS % (AUTO) 69.5 %; PLT - PLATELET COUNT 89 10^3/uL (130-450); RED BLOOD COUNT 2.61 10^6/uL (4.70-6.10); WHITE BLOOD COUNT 7.8 x10^3/uL (4.8-10.8)
[2019-08-31 06:08] LABS: ALBUMIN 2.6 g/dL (3.2-5.5); BILIRUBIN,TOTAL 1.1 mg/dL (0.2-1.0); CALCIUM 7.8 mg/dL (8.5-10.3); CREATININE 1.6 mg/dL (0.6-1.2); TOTAL PROTEIN 5.3 g/dL (6.7-8.2)
[2019-08-31] MEDS: MORPHINE 2 MG/ML CARPUJECT IVP PRN (06:08)
[2019-08-31] MEDS: SODIUM CHLORIDE FLUSH 0.9% 10 ML SYRINGE IVP SCH ×3 (06:11→16:00)
--- NOTE | 2019-08-31 07:51 | PROVIDER PROGRESS NOTE ---
Assessment/Plan - Problem List (1) NSTEMI (non-ST elevated myocardial infarction) Assessment/Plan: 08/31, pt's troponin run up to 2600 again, new EKG indicate V4/5/6 ST slight depression again comparing with 08/30's EKG. pt denies chest pain. but pt is still confused. EKG did not indicate third degree heart block, but tele did show third degree heart block. pt's Atenolol is hold now. pt's EKG also show slight bradycardia at 55. it is likely caused and damaged by pt's acute VT Discussed with pt's for pt's care plan, if pt's troponin continue elevated, EKG became worsen, hemodynamic became compromised, advise pt's might think for hospice care. pt's state she will talk with his family tonight and make the decision if pt will do hospice at this point continue heparin drip continue tele and vital monitor 08/30 persistent elevated troponin upto 2800, changed EKG with ST depression, a nd pt complain of chest pain. pt is s/p hip repair on yesterday. pt had hx of CAD with stent about 10 yrs. [employer] Supervisor was called, recommend medical treatment in our hospital now. surgeon agreed with heparin drip. pt and his agreed to treat VT and understood the treatment risk of bleeding. plan: heparin drip, followup protocol. pt is hemodynamic stable now. if not stable, will transfer to ICU. pt's code status is DNR/DNI, confirmed with pt and his with code status continue tele and vital monitor continue H&H (2) Intertrochanteric fracture of right femur 08/31, pt's surgery site dressing is dry, not obvious bleeding. hold PT/OT now continue pain control continue incentive spirometer 08/30 hold PT/OT now because of VT S/P right hip repair on today. followup orthopedics's recommendations pain control PT/OT consult with nursing home social worker for d/c plan (3) hx of Cerebrovascular accident (CVA) 08/31 CT of head was unremarkable for acute finding pt has hx of CVA, and right side weakness continue Plavix and lipitor, continue PT/OT (4) Anemia 08/31 HGB 7.2 at the morning, one unit was order by Dr. cuenca. pt has no brain bleed, surgery site is dry, unknown the reason HGB is drop. discussed with pt's , pt was at the high risk for bleed when pt had heparin drip. pt's understood the risk and agreed to treat the heart attack with heparin drip. discussed with pt's , she will talk with her family for possible hospice. continue H&H at this point 08/30 improved, HGB is 8.5 now, continue lab monitor pt has hx of anemia. pt had two unit of blood. pt is s/p of surgery. iron study reveals iron deficiency H&H monitor HGB order iron pill (5) HTN (hypertension) stable, resume home Atenolol and Cardizem tele and vital monitor (6) Hx of coronary artery disease Assessment/Plan: stable now. pt denies chest pain, SOB now resume Plavix, Atenolol and Cardizem to control BP continue tele and vital monitor pt is DNR code status (7) confused 08/30 pt became confused this afternoon. order CT of brain, will followup (8) CKD stage III stable (9) elevated liver enzyme enzyme reduced, will continue lab monitor, possible to have US if continue elevated significantly - Current Meds Current Meds: Current Medications Generic Name Dose Route Start Last Admin Trade Name Freq PRN Reason Stop Dose Admin Acetaminophen 650 - 975 mg 08/29/19 11:06 08/30/19 08:48 Tylenol PO 650 mg Q4HR PRN Administration PAIN Atenolol 50 mg 08/29/19 16:29 08/30/19 08:48 Tenormin PO 50 mg DAILY MAGGIE Administration Atorvastatin Calcium 20 mg 08/29/19 21:00 08/30/19 22:12 Lipitor PO 20 mg QPM MAGGIE Administration Diltiazem HCl 180 mg 08/30/19 09:00 08/30/19 08:48 Cardizem Cd PO 180 mg DAILY MAGGIE Administration Escitalopram Oxalate 10 mg 08/30/19 09:00 08/30/19 08:47 Lexapro PO 10 mg DAILY MAGGIE Administration Ferrous Sulfate 325 mg 08/29/19 17:00 08/30/19 17:57 Feosol PO 325 mg BIDWM MAGGIE Administration Heparin Sodium/Dextrose 25,000 unit in 500 mls @ 24.96 mls/hr 08/30/19 12:00 08/30/19 12:27 IV 12 unit/kg/hr .Q20H2M MAGGIE 24.96 mls/hr Administration Protocol 12 UNIT/KG/HR Sodium Chloride 1,000 mls @ 83.333 mls/hr 08/30/19 14:00 08/31/19 04:04 Normal Saline 0.9% IV 08/31/19 13:59 83.333 mls/hr .Q12H MAGGIE Administration Magnesium Oxide 400 mg 08/30/19 12:00 08/30/19 12:20 Mag Ox PO 400 mg QDLUNCH MAGGIE Administration Morphine Sulfate 2 mg 08/28/19 10:33 08/31/19 06:08 Morphine (Carpuject) IVP 2 mg Q2HR PRN Administration Pain 8 to 10 Oxycodone HCl 5 mg 08/29/19 11:06 08/31/19 01:07 Roxicodone PO 5 mg Q4HR PRN Administration PAIN Phenol/Menthol 2 sprays 08/29/19 13:27 08/29/19 13:38 Chloraseptic MM 2 sprays Q2HR PRN Administration Throat Pain Polyethylene Glycol 17 gm 08/29/19 09:00 08/30/19 08:49 Miralax PO Not Given DAILY MAGGIE Sodium Chloride 10 ml 08/29/19 17:00 08/31/19 06:11 Normal Saline Flush 0.9% IVP Not Given 0100,0900,1700 MAGGIE Sodium Chloride 10 ml 08/29/19 11:06 08/30/19 22:19 Normal Saline Flush 0.9% IVP 10 ml PRN PRN Administration NEEDED PER PROVIDER ORDERS - Lab Result Fish Bone Diagrams: 08/31/19 15:48 08/31/19 05:45 - Additional Planning My Orders: My Active Orders 08/30/19 08:41 Echo Transthoracic Complete [ECHO] Stat 08/30/19 09:00 Escitalopram [Lexapro] 10 mg PO DAILY diltiaZEM CD [Cardizem Cd] 180 mg PO DAILY 08/30/19 11:53 Initiate Cardiac Heparin Prot [RC] .protocol Notify Provider - Specific Ins [RC] PRN OCCULT BLOOD IN PAT. SINGLE [RAPID] Routine 08/30/19 12:00 Heparin 37405THBGY/500Ml (D5w) 25,000 unit in 500 ml IV 12 unit/kg/hr Magnesium Oxide [Mag Ox] 400 mg PO QDLUNCH 08/30/19 14:00 Sodium Chloride 0.9% [Normal Saline 0.9%] 1,000 ml IV 83.333 mls/hr 08/30/19 18:00 Heparin 2,600 unit IVP Q6H PRN 08/30/19 Dinner Soft Mechanical Diet [DIET] 08/31/19 RBC, LEUKOREDUCED Stat TYPE AND SCREEN Stat UA w/ MICROSCOPIC, CULT IF [URIN] Urgent 08/31/19 07:21 TROPONIN I HIGH SENSITIVITY [IAI] Timed 08/31/19 07:47 Chest 1 View X-Ray [XR] Routine 08/31/19 09:00 CBC W/O DIFF (HEMOGRAM) [HEME] DAILY 08/31/19 16:00 H&H [HEMOGLOBIN AND HEMATOCRIT] [HEME] Timed 09/01/19 05:00 CBC - COMP BLD CT W/AUTO DIFF [HEME] DAILYLAB CMP [COMPREHENSIVE METABOLIC PANEL] [CHEM] DAILYLAB MAGNESIUM [CHEM] DAILYLAB 09/02/19 05:00 CBC - COMP BLD CT W/AUTO DIFF [HEME] DAILYLAB CMP [COMPREHENSIVE METABOLIC PANEL] [CHEM] DAILYLAB 09/03/19 05:00 CBC - COMP BLD CT W/AUTO DIFF [HEME] DAILYLAB CMP [COMPREHENSIVE METABOLIC PANEL] [CHEM] DAILYLAB Subjective - Subjective Nursing Reports: Confused Objective Vital Signs: Vital Signs - 24 hr 08/30/19 08/30/19 08/30/19 08:00 16:48 20:22 Temperature 36.4 C L 37 C 37.3 C Heart Rate [ 73 77 70 Brachial] Respiratory 14 18 18 Rate Blood Pressure 121/43 L 114/46 L 117/46 L [Right Brachial artery] O2 Saturation 92 96 94 08/31/19 08/31/19 00:10 03:15 Temperature 36.7 C 37.6 C H Heart Rate [ 91 70 Brachial] Respiratory 18 20 Rate Blood Pressure 146/53 H 121/53 L [Right Brachial artery] O2 Saturation 94 96 Oxygen O2 Source Room air I&O (Last 24 Hrs): Intake and Output Totals x24h 08/29/19 08/30/19 08/31/19 23:59 23:59 23:59 Intake Total 2556.167 3135.833 1000 Output Total 735 700 50 Balance 7765.678 5699.833 950 General: Alert HEENT: Atraumatic Neck: Supple Lymphatic: no adenopathy Neuro: Alert, Disoriented Cardiovascular: Regular rate Respiratory: Chest non-tender, No respiratory distress, Breath sounds nml Abdomen: Normal bowel sounds, Soft - Results Results: Laboratory Results WBC 7.8 x10^3/uL (4.8-10.8) 08/31/19 05:45 RBC 2.61 10^6/uL (4.70-6.10) L 08/31/19 05:45 Hgb 7.2 g/dL (14.0-18.0) L 08/31/19 05:45 Hct 23.4 % (42.0-52.0) L 08/31/19 05:45 MCV 89.7 fL (80.0-94.0) 08/31/19 05:45 MCH 27.6 pg (27.0-31.0) 08/31/19 05:45 MCHC 30.8 g/dL (32.0-36.0) L 08/31/19 05:45 RDW 15.0 % (12.0-15.0) 08/31/19 05:45 Plt Count 89 10^3/uL (130-450) L 08/31/19 05:45 MPV 9.6 fL (7.4-11.4) 08/31/19 05:45 Reticulocyte % (Auto) 1.61 % (0.5-2.3) 08/28/19 11:20 Neut # (Auto) 5.4 10^3/uL (1.5-6.6) 08/31/19 05:45 Lymph # (Auto) 1.2 10^3/uL (1.5-3.5) L 08/31/19 05:45 Haines # (Auto) 1.0 10^3/uL (0.0-1.0) 08/31/19 05:45 Eos # (Auto) 0.1 10^3/uL (0.0-0.7) 08/31/19 05:45 Baso # (Auto) 0.0 10^3/uL (0.0-0.1) 08/31/19 05:45 Absolute Nucleated RBC 0.00 x10^3/uL 08/31/19 05:45 Nucleated RBC % 0.0 /100WBC 08/31/19 05:45 Absolute Retic 0.052 10^6/uL (0.020-0.110) 08/28/19 11:20 PT 13.9 secs (9.9-12.6) H 08/28/19 06:55 INR 1.2 (0.8-1.2) 08/28/19 06:55 APTT 28.5 secs (24.9-33.3) 08/28/19 06:55 Anti-Xa Level 0.5 U/mL (-0.7) 08/31/19 05:45 Sodium 141 mmol/L (135-145) 08/31/19 05:45 Potassium 4.1 mmol/L (3.5-5.0) 08/31/19 05:45 Chloride 109 mmol/L (101-111) 08/31/19 05:45 Carbon Dioxide 24 mmol/L (21-32) 08/31/19 05:45 Anion Gap 8.0 (6-13) 08/31/19 05:45 BUN 48 mg/dL (6-20) H 08/31/19 05:45 Creatinine 1.6 mg/dL (0.6-1.2) H 08/31/19 05:45 Estimated GFR (MDRD) 41 (>89) L 08/31/19 05:45 Glucose 101 mg/dL (70-100) H 08/31/19 05:45 Calcium 7.8 mg/dL (8.5-10.3) L 08/31/19 05:45 Magnesium 2.0 mg/dL (1.7-2.8) 08/31/19 05:45 Iron 25 ug/dL (45-182) L 08/28/19 06:55 TIBC 399 ug/dL (250-450) 08/28/19 06:55 % Saturation 6 % (20-50) L 08/28/19 06:55 Transferrin 285 mg/dL (180-329) 08/28/19 06:55 Erythropoietin 34.2 mIU/mL (2.6-18.5) H 08/28/19 06:55 Ferritin 14.5 ng/mL (23.9-336.2) L 08/28/19 06:55 Total Bilirubin 1.1 mg/dL (0.2-1.0) H 08/31/19 05:45 AST 169 IU/L (10-42) H 08/31/19 05:45 ALT 123 IU/L (10-60) H 08/31/19 05:45 Alkaline Phosphatase 52 IU/L (42-121) 08/31/19 05:45 Lactate Dehydrogenase 147 IU/L (91-225) 08/28/19 06:55 Troponin I High Sens 1606.0 pg/mL (2.3-19.7) H* 08/30/19 18:52 Total Protein 5.3 g/dL (6.7-8.2) L 08/31/19 05:45 Albumin 2.6 g/dL (3.2-5.5) L 08/31/19 05:45 Globulin 2.7 g/dL (2.1-4.2) 08/31/19 05:45 Albumin/Globulin Ratio 1.0 (1.0-2.2) 08/31/19 05:45 Vitamin B12 471 pg/mL (180-914) 08/28/19 06:55 Urine Color YELLOW 08/28/19 07:15 Urine Clarity CLEAR (CLEAR) 08/28/19 07:15 Urine pH 6.0 PH (5.0-7.5) 08/28/19 07:15 Ur Specific [place] 1.025 (1.002-1.030) 08/28/19 07:15 Urine Protein NEGATIVE mg/dL (NEGATIVE) 08/28/19 07:15 Urine Glucose (UA) NEGATIVE mg/dL (NEGATIVE) 08/28/19 07:15 Urine Ketones NEGATIVE mg/dL (NEGATIVE) 08/28/19 07:15 Urine Occult Blood TRACE-INTA (NEGATIVE) 08/28/19 07:15 Urine Nitrite NEGATIVE (NEGATIVE) 08/28/19 07:15 Urine Bilirubin NEGATIVE (NEGATIVE) 08/28/19 07:15 Urine Urobilinogen 0.2 (NORMAL) E.U./dL (NORMAL) 08/28/19 07:15 Ur Leukocyte Esterase NEGATIVE (NEGATIVE) 08/28/19 07:15 Ur Microscopic Review NOT INDICATED 08/28/19 07:15 Urine Culture Comments NOT INDICATED 08/28/19 07:15 Blood Type O NEGATIVE 08/28/19 11:20 Blood Type Recheck O NEGATIVE 08/28/19 06:55 Antibody Screen NEGATIVE 08/28/19 11:20 Crossmatch IS Only See Detail 08/29/19 11:20 Sepsis Event Note (H) - Evaluation Current Stage of Sepsis: Ruled out ABX Reporting Has patient been on IV antibiotics over the past 48 hours?: No Current Medications - Current Medications Current Medications: Active Medications Acetaminophen (Tylenol) 650 - 975 mg PO Q4HR PRN PRN Reason: PAIN Last Admin: 08/31/19 08:56 Dose: 650 mg Atorvastatin Calcium (Lipitor) 20 mg PO QPM [facility] Last Admin: 08/30/19 22:12 Dose: 20 mg Diltiazem HCl (Cardizem Cd) 180 mg PO DAILY [facility] Last Admin: 08/31/19 08:57 Dose: 180 mg Docusate Sodium (Colace 100mg Capsule) 100 mg PO BID PRN PRN Reason: Constipation Escitalopram Oxalate (Lexapro) 10 mg PO DAILY [facility] Last Admin: 08/31/19 08:57 Dose: 10 mg Ferrous Sulfate (Feosol) 325 mg PO BIDWM [facility] Last Admin: 08/31/19 16:00 Dose: 325 mg Heparin Sodium (Porcine) () 2,600 unit 25 unit/kg (2600 unit) IVP Q6H PRN PRN Reason: ANTI-XA < 0.2 Heparin Sodium/Dextrose () 25,000 unit in 500 mls @ 24.96 mls/hr IV .Q20H2M [facility]; Protocol Last Admin: 08/31/19 08:53 Dose: 12 unit/kg/hr, 24.96 mls/hr Magnesium Oxide (Mag Ox) 400 mg PO QDLUNCH [facility] Last Admin: 08/31/19 12:59 Dose: Not Given Morphine Sulfate (Morphine (Carpuject)) 2 mg IVP Q2HR PRN PRN Reason: Pain 8 to 10 Last Admin: 08/31/19 06:08 Dose: 2 mg Nitroglycerin (Nitrostat) 0.4 mg SL Q5M PRN PRN Reason: Chest Pain Ondansetron HCl (Zofran Odt) 4 mg TL Q6HR PRN PRN Reason: Nausea / Vomiting Ondansetron HCl (Zofran Inj) 4 mg IVP Q6HR PRN PRN Reason: Nausea / Vomiting Oxycodone HCl (Roxicodone) 5 mg PO Q4HR PRN PRN Reason: PAIN Last Admin: 08/31/19 01:07 Dose: 5 mg Phenol/Menthol (Chloraseptic) 2 sprays MM Q2HR PRN PRN Reason: Throat Pain Last Admin: 08/29/19 13:38 Dose: 2 sprays Polyethylene Glycol (Miralax) 17 gm PO DAILY [facility] Last Admin: 08/31/19 08:58 Dose: 17 gm Prochlorperazine Edisylate (Compazine Inj) 10 mg IVP Q6HR PRN PRN Reason: Nausea / Vomiting Senna (Senokot) 17.2 mg PO Q12H PRN PRN Reason: Constipation Sodium Chloride (Normal Saline Flush 0.9%) 10 ml IVP 0100,0900,1700 [facility] Last Admin: 08/31/19 16:00 Dose: 10 ml Sodium Chloride (Normal Saline Flush 0.9%) 10 ml IVP PRN PRN PRN Reason: NEEDED PER PROVIDER ORDERS Last Admin: 08/30/19 22:19 Dose: 10 ml Clopidogrel [Plavix] 75 mg PO DAILY 12/08/16 traMADol [Ultram] 50 mg PO Q6H PRN 12/08/16 Diltiazem HCl [Diltiazem 24Hr Cd] 180 mg PO DAILY 12/09/16 Nitroglycerin [Nitrostat] 0.4 mg SL Q5M PRN 12/09/16 Atenolol [Tenormin] 50 mg PO DAILY 08/29/19 Atorvastatin Calcium 20 mg PO QPM 08/29/19 Cholecalciferol (Vitamin D3) [Vitamin D] 2,000 unit PO DAILY 08/29/19 Cyanocobalamin (Vitamin B-12) [Vitamin B-12 (1000 mcg sublingual)] 1,000 mcg SL DAILY 08/29/19 Escitalopram [Lexapro] 10 mg PO DAILY 08/29/19 Furosemide [Lasix] 80 mg PO DAILY 08/29/19 Pantoprazole [Protonix] 40 mg PO QDAC 08/29/19 Potassium Chloride 20 meq PO DAILYWM 08/29/19
[2019-08-31] MEDS: HEPARIN 25000UNITS/500ML (D5W) 25,000 UNIT/500 ML BAG IV SCH (08:53)
[2019-08-31] MEDS: ACETAMINOPHEN 325 MG TABLET PO PRN (08:56)
[2019-08-31] MEDS: diltiaZEM CD 180 MG CAPSULE PO SCH (08:57)
[2019-08-31] MEDS: ATENOLOL 25 MG TABLET PO SCH (08:57)
[2019-08-31] MEDS: FERROUS SULFATE 325 MG TABLET PO SCH ×2 (08:57→16:00)
[2019-08-31] MEDS: ESCITALOPRAM 10 MG TABLET PO SCH (08:57)
[2019-08-31] MEDS: POLYETHYLENE GLYCOL 3350 17 GM PACKET PO SCH (08:58)
[2019-08-31 09:00] LABS: BILIRUBIN,URINE NEGATIVE (NEGATIVE); GLUCOSE, URINE (UA) NEGATIVE (NEGATIVE); KETONES,URINE (UA) NEGATIVE (NEGATIVE); LEUKOCYTE ESTERASE, URINE NEGATIVE (NEGATIVE); NITRITE,URINE NEGATIVE (NEGATIVE); OCCULT BLOOD,URINE SMALL (NEGATIVE); PH,URINE 5.5 PH (5.0-7.5); PROTEIN,URINE NEGATIVE (NEGATIVE); UROBILINOGEN,URINE 0.2 (NORMAL) E.U./dL (NORMAL)
[2019-08-31 09:09] LABS: BACTERIA,URINE Few /HPF (None Seen); CLARITY,URINE CLEAR (CLEAR); RBC,URINE 0-5 /HPF (0-5); SQUAMOUS EPITHELIAL CELL,UR NONE SEEN (<= Few)
[2019-08-31 09:21] LABS: HGB - HEMOGLOBIN 7.8 g/dL (14.0-18.0); MEAN CORPUSCULAR HEMOGLOBIN 27.5 pg (27.0-31.0); MEAN CORPUSCULAR HGB CONC 29.9 g/dL (32.0-36.0); MEAN CORPUSCULAR VOLUME 91.9 fL (80.0-94.0); MEAN PLATELET VOLUME 10.6 fL (7.4-11.4); RED BLOOD COUNT 2.84 10^6/uL (4.70-6.10); WHITE BLOOD COUNT 10.3 x10^3/uL (4.8-10.8)
--- NOTE | 2019-08-31 11:12 | XRAY Report ---
Reason: sob Procedure Date: 08/31/2019 Accession Number: [id number] / [id number] Procedure: XR - Chest 1 View X-Ray CPT Code: 73406 Final Report FULL RESULT: EXAM: CHEST RADIOGRAPHY EXAM DATE: 08/31/2019 08:07 AM. CLINICAL HISTORY: Sob. COMPARISON: CHEST 1 VIEW 08/28/2019 6:50 AM. TECHNIQUE: 1 view. FINDINGS: Lungs/Pleura: Increased interstitial markings of parabronchial cuffing. No focal opacities evident. No pleural effusion. No pneumothorax. Mediastinum: The heart is normal in size. The pulmonary vasculature is prominent and indistinct. Other: None. IMPRESSION: Pulmonary vascular congestion which can be seen in the setting of CHF exacerbation. No cardiac enlargement. Superimposed infectious process cannot be entirely excluded. [facility]
[2019-08-31] MEDS: MAGNESIUM OXIDE 400 MG TABLET PO SCH (12:59)
--- NOTE | 2019-08-31 17:32 | PROVIDER PROGRESS NOTE ---
Subjective - Prog Note Date Prog Note Date: 08/31/19 Prog Note Time: 17:30 - Subjective Pt reports feeling: No change (No new complaints of hip apin) Objective - Vital Signs/Intake & Output Vital Signs: Vital Signs x48h Temp Pulse Pulse Pulse Pulse Pulse Resp 08/31/19 15:49 36.5 C 61 18 08/31/19 12:52 36.7 C 56 L 08/31/19 12:24 37.3 C 56 L 20 08/31/19 11:20 51 L 59 L 56 L 08/31/19 10:03 36.6 C 67 16 08/31/19 09:51 36.7 C 68 16 BP BP BP BP BP Pulse Ox 08/31/19 15:49 123/46 L 96 08/31/19 12:52 112/40 L 08/31/19 12:24 112/40 L 96 08/31/19 11:20 116/41 L 136/56 H 122/46 L 08/31/19 10:03 113/41 L 08/31/19 09:51 122/45 L Intake & Output: Intake & Output 08/28/19 08/29/19 08/30/19 08/31/19 23:59 23:59 23:59 23:59 Intake Total 2530.746 2767.167 3135.833 3168 Output Total 525 735 700 350 Balance 963.046 1624.167 2435.833 2818 - Lab Results Fish Bones: 08/31/19 15:48 08/31/19 05:45 Other Labs: Lab Results x24hrs 08/31/19 08/31/19 08/31/19 Range/Units 15:48 15:48 15:48 WBC (4.8-10.8) x10^3/uL RBC (4.70-6.10) 10^6/uL Hgb 8.0 L (14.0-18.0) g/dL Hct 25.9 L (42.0-52.0) % MCV (80.0-94.0) fL MCH (27.0-31.0) pg MCHC (32.0-36.0) g/dL RDW (12.0-15.0) % Plt Count (130-450) 10^3/uL MPV (7.4-11.4) fL Neut # (Auto) (1.5-6.6) 10^3/uL Lymph # (Auto) (1.5-3.5) 10^3/uL [place] # (Auto) (0.0-1.0) 10^3/uL Eos # (Auto) (0.0-0.7) 10^3/uL Baso # (Auto) (0.0-0.1) 10^3/uL Absolute Nucleated RBC x10^3/uL Nucleated RBC % /100WBC Anti-Xa Level ( - 0.7) U/mL Sodium (135-145) mmol/L Potassium (3.5-5.0) mmol/L Chloride (101-111) mmol/L Carbon Dioxide (21-32) mmol/L Anion Gap (6-13) BUN (6-20) mg/dL Creatinine (0.6-1.2) mg/dL Estimated GFR (MDRD) (>89) Glucose (70-100) mg/dL Calcium (8.5-10.3) mg/dL Magnesium (1.7-2.8) mg/dL Erythropoietin (2.6-18.5) mIU/mL Total Bilirubin (0.2-1.0) mg/dL AST (10-42) IU/L ALT (10-60) IU/L Alkaline Phosphatase (42-121) IU/L Troponin I High Sens 3628.0 H* (2.3-19.7) pg/mL Total Protein (6.7-8.2) g/dL Albumin (3.2-5.5) g/dL Globulin (2.1-4.2) g/dL Albumin/Globulin Ratio (1.0-2.2) Urine Color Urine Clarity (CLEAR) Urine pH (5.0-7.5) PH Ur Specific [place] (1.002-1.030) Urine Protein (NEGATIVE) mg/dL Urine Glucose (UA) (NEGATIVE) mg/dL Urine Ketones (NEGATIVE) mg/dL Urine Occult Blood (NEGATIVE) Urine Nitrite (NEGATIVE) Urine Bilirubin (NEGATIVE) Urine Urobilinogen (NORMAL) E.U./dL Ur Leukocyte Esterase (NEGATIVE) Urine RBC (0-5) /HPF Urine WBC (0-3) /HPF Ur Squamous Epith Cells (<= Few) Urine Bacteria (None Seen) /HPF Urine Culture Comments Blood Type O NEGATIVE Antibody Screen NEGATIVE Crossmatch IS Only See Detail 08/31/19 08/31/19 08/31/19 Range/Units 09:15 09:15 08:40 WBC 10.3 (4.8-10.8) x10^3/uL RBC 2.84 L (4.70-6.10) 10^6/uL Hgb 7.8 L (14.0-18.0) g/dL Hct 26.1 L (42.0-52.0) % MCV 91.9 (80.0-94.0) fL MCH 27.5 (27.0-31.0) pg MCHC 29.9 L (32.0-36.0) g/dL RDW 15.0 (12.0-15.0) % Plt Count 67 L (130-450) 10^3/uL MPV 10.6 (7.4-11.4) fL Neut # (Auto) (1.5-6.6) 10^3/uL Lymph # (Auto) (1.5-3.5) 10^3/uL [place] # (Auto) (0.0-1.0) 10^3/uL Eos # (Auto) (0.0-0.7) 10^3/uL Baso # (Auto) (0.0-0.1) 10^3/uL Absolute Nucleated RBC x10^3/uL Nucleated RBC % /100WBC Anti-Xa Level ( - 0.7) U/mL Sodium (135-145) mmol/L Potassium (3.5-5.0) mmol/L Chloride (101-111) mmol/L Carbon Dioxide (21-32) mmol/L Anion Gap (6-13) BUN (6-20) mg/dL Creatinine (0.6-1.2) mg/dL Estimated GFR (MDRD) (>89) Glucose (70-100) mg/dL Calcium (8.5-10.3) mg/dL Magnesium (1.7-2.8) mg/dL Erythropoietin (2.6-18.5) mIU/mL Total Bilirubin (0.2-1.0) mg/dL AST (10-42) IU/L ALT (10-60) IU/L Alkaline Phosphatase (42-121) IU/L Troponin I High Sens 2617.6 H* (2.3-19.7) pg/mL Total Protein (6.7-8.2) g/dL Albumin (3.2-5.5) g/dL Globulin (2.1-4.2) g/dL Albumin/Globulin Ratio (1.0-2.2) Urine Color YELLOW Urine Clarity CLEAR (CLEAR) Urine pH 5.5 (5.0-7.5) PH Ur Specific [place] 1.015 (1.002-1.030) Urine Protein NEGATIVE (NEGATIVE) mg/dL Urine Glucose (UA) NEGATIVE (NEGATIVE) mg/dL Urine Ketones NEGATIVE (NEGATIVE) mg/dL Urine Occult Blood SMALL H (NEGATIVE) Urine Nitrite NEGATIVE (NEGATIVE) Urine Bilirubin NEGATIVE (NEGATIVE) Urine Urobilinogen 0.2 (NORMAL) (NORMAL) E.U./dL Ur Leukocyte Esterase NEGATIVE (NEGATIVE) Urine RBC 0-5 (0-5) /HPF Urine WBC 0-3 (0-3) /HPF Ur Squamous Epith Cells NONE SEEN (<= Few) Urine Bacteria Few (None Seen) /HPF Urine Culture Comments NOT INDICATED Blood Type Antibody Screen Crossmatch IS Only 08/31/19 08/31/19 08/31/19 Range/Units 05:45 05:45 05:45 WBC 7.8 (4.8-10.8) x10^3/uL RBC 2.61 L (4.70-6.10) 10^6/uL Hgb 7.2 L (14.0-18.0) g/dL Hct 23.4 L (42.0-52.0) % MCV 89.7 (80.0-94.0) fL MCH 27.6 (27.0-31.0) pg MCHC 30.8 L (32.0-36.0) g/dL RDW 15.0 (12.0-15.0) % Plt Count 89 L (130-450) 10^3/uL MPV 9.6 (7.4-11.4) fL Neut # (Auto) 5.4 (1.5-6.6) 10^3/uL Lymph # (Auto) 1.2 L (1.5-3.5) 10^3/uL [place] # (Auto) 1.0 (0.0-1.0) 10^3/uL Eos # (Auto) 0.1 (0.0-0.7) 10^3/uL Baso # (Auto) 0.0 (0.0-0.1) 10^3/uL Absolute Nucleated RBC 0.00 x10^3/uL Nucleated RBC % 0.0 /100WBC Anti-Xa Level 0.5 ( - 0.7) U/mL Sodium 141 (135-145) mmol/L Potassium 4.1 (3.5-5.0) mmol/L Chloride 109 (101-111) mmol/L Carbon Dioxide 24 (21-32) mmol/L Anion Gap 8.0 (6-13) BUN 48 H (6-20) mg/dL Creatinine 1.6 H (0.6-1.2) mg/dL Estimated GFR (MDRD) 41 L (>89) Glucose 101 H (70-100) mg/dL Calcium 7.8 L (8.5-10.3) mg/dL Magnesium 2.0 (1.7-2.8) mg/dL Erythropoietin (2.6-18.5) mIU/mL Total Bilirubin 1.1 H (0.2-1.0) mg/dL AST 169 H (10-42) IU/L ALT 123 H (10-60) IU/L Alkaline Phosphatase 52 (42-121) IU/L Troponin I High Sens (2.3-19.7) pg/mL Total Protein 5.3 L (6.7-8.2) g/dL Albumin 2.6 L (3.2-5.5) g/dL Globulin 2.7 (2.1-4.2) g/dL Albumin/Globulin Ratio 1.0 (1.0-2.2) Urine Color Urine Clarity (CLEAR) Urine pH (5.0-7.5) PH Ur Specific [place] (1.002-1.030) Urine Protein (NEGATIVE) mg/dL Urine Glucose (UA) (NEGATIVE) mg/dL Urine Ketones (NEGATIVE) mg/dL Urine Occult Blood (NEGATIVE) Urine Nitrite (NEGATIVE) Urine Bilirubin (NEGATIVE) Urine Urobilinogen (NORMAL) E.U./dL Ur Leukocyte Esterase (NEGATIVE) Urine RBC (0-5) /HPF Urine WBC (0-3) /HPF Ur Squamous Epith Cells (<= Few) Urine Bacteria (None Seen) /HPF Urine Culture Comments Blood Type Antibody Screen Crossmatch IS Only 08/31/19 08/30/19 08/30/19 Range/Units 01:05 23:35 18:52 WBC (4.8-10.8) x10^3/uL RBC (4.70-6.10) 10^6/uL Hgb 7.7 L (14.0-18.0) g/dL Hct 26.5 L (42.0-52.0) % MCV (80.0-94.0) fL MCH (27.0-31.0) pg MCHC (32.0-36.0) g/dL RDW (12.0-15.0) % Plt Count (130-450) 10^3/uL MPV (7.4-11.4) fL Neut # (Auto) (1.5-6.6) 10^3/uL Lymph # (Auto) (1.5-3.5) 10^3/uL [place] # (Auto) (0.0-1.0) 10^3/uL Eos # (Auto) (0.0-0.7) 10^3/uL Baso # (Auto) (0.0-0.1) 10^3/uL Absolute Nucleated RBC x10^3/uL Nucleated RBC % /100WBC Anti-Xa Level 0.3 ( - 0.7) U/mL Sodium (135-145) mmol/L Potassium (3.5-5.0) mmol/L Chloride (101-111) mmol/L Carbon Dioxide (21-32) mmol/L Anion Gap (6-13) BUN (6-20) mg/dL Creatinine (0.6-1.2) mg/dL Estimated GFR (MDRD) (>89) Glucose (70-100) mg/dL Calcium (8.5-10.3) mg/dL Magnesium (1.7-2.8) mg/dL Erythropoietin (2.6-18.5) mIU/mL Total Bilirubin (0.2-1.0) mg/dL AST (10-42) IU/L ALT (10-60) IU/L Alkaline Phosphatase (42-121) IU/L Troponin I High Sens 1606.0 H* (2.3-19.7) pg/mL Total Protein (6.7-8.2) g/dL Albumin (3.2-5.5) g/dL Globulin (2.1-4.2) g/dL Albumin/Globulin Ratio (1.0-2.2) Urine Color Urine Clarity (CLEAR) Urine pH (5.0-7.5) PH Ur Specific [place] (1.002-1.030) Urine Protein (NEGATIVE) mg/dL Urine Glucose (UA) (NEGATIVE) mg/dL Urine Ketones (NEGATIVE) mg/dL Urine Occult Blood (NEGATIVE) Urine Nitrite (NEGATIVE) Urine Bilirubin (NEGATIVE) Urine Urobilinogen (NORMAL) E.U./dL Ur Leukocyte Esterase (NEGATIVE) Urine RBC (0-5) /HPF Urine WBC (0-3) /HPF Ur Squamous Epith Cells (<= Few) Urine Bacteria (None Seen) /HPF Urine Culture Comments Blood Type Antibody Screen Crossmatch IS Only 08/30/19 08/29/19 08/28/19 Range/Units 18:52 11:20 06:55 WBC (4.8-10.8) x10^3/uL RBC (4.70-6.10) 10^6/uL Hgb (14.0-18.0) g/dL Hct (42.0-52.0) % MCV (80.0-94.0) fL MCH (27.0-31.0) pg MCHC (32.0-36.0) g/dL RDW (12.0-15.0) % Plt Count (130-450) 10^3/uL MPV (7.4-11.4) fL Neut # (Auto) (1.5-6.6) 10^3/uL Lymph # (Auto) (1.5-3.5) 10^3/uL [place] # (Auto) (0.0-1.0) 10^3/uL Eos # (Auto) (0.0-0.7) 10^3/uL Baso # (Auto) (0.0-0.1) 10^3/uL Absolute Nucleated RBC x10^3/uL Nucleated RBC % /100WBC Anti-Xa Level 0.4 ( - 0.7) U/mL Sodium (135-145) mmol/L Potassium (3.5-5.0) mmol/L Chloride (101-111) mmol/L Carbon Dioxide (21-32) mmol/L Anion Gap (6-13) BUN (6-20) mg/dL Creatinine (0.6-1.2) mg/dL Estimated GFR (MDRD) (>89) Glucose (70-100) mg/dL Calcium (8.5-10.3) mg/dL Magnesium (1.7-2.8) mg/dL Erythropoietin 34.2 H (2.6-18.5) mIU/mL Total Bilirubin (0.2-1.0) mg/dL AST (10-42) IU/L ALT (10-60) IU/L Alkaline Phosphatase (42-121) IU/L Troponin I High Sens (2.3-19.7) pg/mL Total Protein (6.7-8.2) g/dL Albumin (3.2-5.5) g/dL Globulin (2.1-4.2) g/dL Albumin/Globulin Ratio (1.0-2.2) Urine Color Urine Clarity (CLEAR) Urine pH (5.0-7.5) PH Ur Specific [place] (1.002-1.030) Urine Protein (NEGATIVE) mg/dL Urine Glucose (UA) (NEGATIVE) mg/dL Urine Ketones (NEGATIVE) mg/dL Urine Occult Blood (NEGATIVE) Urine Nitrite (NEGATIVE) Urine Bilirubin (NEGATIVE) Urine Urobilinogen (NORMAL) E.U./dL Ur Leukocyte Esterase (NEGATIVE) Urine RBC (0-5) /HPF Urine WBC (0-3) /HPF Ur Squamous Epith Cells (<= Few) Urine Bacteria (None Seen) /HPF Urine Culture Comments Blood Type Cancelled Antibody Screen Cancelled Crossmatch IS Only See Detail - Other Results/Comments Other Results/Comments: EXAM: Dressing dry. Some pain with hip motion N/V ok distally Sepsis Event Note (H) - Evaluation Current Stage of Sepsis: Ruled out Assessment/Plan - Problem List (1) Intertrochanteric fracture of right femur Impression: Stable form orthopedic standpoint PLAN: Hold on PT until cleared by medicine Qualifiers: Qualified Code(s): S72.141A - Displaced intertrochanteric fracture of right femur, initial encounter for closed fracture
[2019-08-31] MEDS: ATORVASTATIN 40 MG TABLET PO SCH (20:14)
[2019-08-31 22:41] LABS: HGB - HEMOGLOBIN 7.3 g/dL (14.0-18.0)
[2019-09-01] MEDS ORDERED: SODIUM CHLORIDE 0.9% 500 ML ONE (00:13)
[2019-09-01] MEDS: SODIUM CHLORIDE FLUSH 0.9% 10 ML SYRINGE IVP PRN (03:24)
[2019-09-01] MEDS: SODIUM CHLORIDE FLUSH 0.9% 10 ML SYRINGE IVP SCH ×3 (03:24→16:07)
[2019-09-01] MEDS: ACETAMINOPHEN 325 MG TABLET PO PRN (03:48)
[2019-09-01] MEDS: HEPARIN 25000UNITS/500ML (D5W) 25,000 UNIT/500 ML BAG IV SCH (04:12)
[2019-09-01 05:25] LABS: BASOPHILS % (AUTO) 0.1 %; EOSINOPHILS # (AUTO) 0.1 10^3/uL (0.0-0.7); EOSINOPHILS % (AUTO) 1.2 %; HGB - HEMOGLOBIN 8.2 g/dL (14.0-18.0); LYMPHOCYTES % (AUTO) 14.2 %; MEAN CORPUSCULAR HEMOGLOBIN 27.9 pg (27.0-31.0); MEAN CORPUSCULAR HGB CONC 31.4 g/dL (32.0-36.0); MEAN CORPUSCULAR VOLUME 88.8 fL (80.0-94.0); MEAN PLATELET VOLUME 9.4 fL (7.4-11.4); MONOCYTES % (AUTO) 13.3 %; NEUTROPHILS # (AUTO) 5.1 10^3/uL (1.5-6.6); NEUTROPHILS % (AUTO) 70.4 %; PLT - PLATELET COUNT 106 10^3/uL (130-450); RED BLOOD COUNT 2.94 10^6/uL (4.70-6.10); RED CELL DISTRIBUTION WIDTH 15.3 % (12.0-15.0); WHITE BLOOD COUNT 7.3 x10^3/uL (4.8-10.8)
[2019-09-01 05:48] LABS: ALBUMIN 2.7 g/dL (3.2-5.5); BILIRUBIN,TOTAL 2.3 mg/dL (0.2-1.0); CALCIUM 7.7 mg/dL (8.5-10.3); CREATININE 1.2 mg/dL (0.6-1.2); MAGNESIUM 2.1 mg/dL (1.7-2.8); TOTAL PROTEIN 5.4 g/dL (6.7-8.2)
[2019-09-01] MEDS: FERROUS SULFATE 325 MG TABLET PO SCH ×2 (09:29→16:06)
[2019-09-01] MEDS: ESCITALOPRAM 10 MG TABLET PO SCH (09:32)
[2019-09-01] MEDS: POLYETHYLENE GLYCOL 3350 17 GM PACKET PO SCH (09:32)
[2019-09-01] MEDS: diltiaZEM CD 180 MG CAPSULE PO SCH (09:32)
[2019-09-01] MEDS: MORPHINE 2 MG/ML CARPUJECT IVP PRN (10:13)
[2019-09-01] MEDS ORDERED: ENOXAPARIN 40 MG/0.4 ML SYRINGE SUBQ SCH (12:00)
[2019-09-01] MEDS: MAGNESIUM OXIDE 400 MG TABLET PO SCH (12:32)
[2019-09-01] MEDS ORDERED: CLOPIDOGREL 75 MG TABLET PO SCH (15:48)
--- NOTE | 2019-09-01 15:57 | PROVIDER PROGRESS NOTE ---
Assessment/Plan - Problem List (1) NSTEMI (non-ST elevated myocardial infarction) Assessment/Plan: (1) NSTEMI (non-ST elevated myocardial infarction) Assessment/Plan: 09/01 pt's troponin continue increased, and his HGB continue drip, pt had another unit blood on last night, pt continue to present very confused. at this point, pt's , decision maker, state after she discussed with his family, they made the decision and request pt go to hospice care. Nurse Al was with me when we discussed above care plan for pt. social media sr strategy manager consulted, per SW, pt's prefer pt go to [facility] for hospice care hospice care was referred. I called hospice care office but unfortunately Dr Martin was not at officer. Per pt's 's request, continue pain control, focus on quality life, comfortable measure. 08/31, pt's troponin run up to 2600 again, new EKG indicate V4/5/6 ST slight depression again comparing with 08/30's EKG. pt denies chest pain. but pt is still confused. EKG did not indicate third degree heart block, but tele did show third degree heart block. pt's Atenolol is hold now. pt's EKG also show slight bradycardia at 55. it is likely caused and damaged by pt's acute ME Discussed with pt's for pt's care plan, if pt's troponin continue elevated, EKG became worsen, hemodynamic became compromised, advise pt's might think for hospice care. pt's state she will talk with his family tonight and make the decision if pt will do hospice at this point continue heparin drip continue tele and vital monitor 08/30 persistent elevated troponin upto 2800, changed EKG with ST depression, and pt complain of chest pain. pt is s/p hip repair on yesterday. pt had hx of CAD with stent about 10 yrs. Business [employer] was called, recommend medical treatment in our hospital now. surgeon agreed with heparin drip. pt and his agreed to treat ME and understood the treatment risk of bleeding. plan: heparin drip, followup protocol. pt is hemodynamic stable now. if not stable, will transfer to ICU. pt's code status is DNR/DNI, confirmed with pt and his with code status continue tele and vital monitor continue H&H (2)hospice care 09/01 pt's , decision maker, state after she discussed with his family, they made the decision and request pt go to hospice care. Nurse Al was with me when we discussed above care plan for pt. hospice care was referred focus on quality life, comfortable measure, pain control (3) Intertrochanteric fracture of right femur 09/01 pain control, comfort measure, d/c for hospice care 08/31, pt's surgery site dressing is dry, not obvious bleeding. hold PT/OT now continue pain control continue incentive spirometer 08/30 hold PT/OT now because of ME S/P right hip repair on today. followup orthopedics's recommendations pain control PT/OT consult with social media sr strategy manager for d/c plan (4) hx of Cerebrovascular accident (CVA) 08/31 CT of head was unremarkable for acute finding pt has hx of CVA, and right side weakness continue Plavix and lipitor, continue PT/OT (5) Anemia 08/31 HGB 7.2 at the morning, one unit was order by Dr. cuenca. pt has no brain bleed, surgery site is dry, unknown the reason HGB is drop. discussed with pt's , pt was at the high risk for bleed when pt had heparin drip. pt's understood the risk and agreed to treat the heart attack with heparin drip. discussed with pt's , she will talk with her family for possible hospice. continue H&H at this point 08/30 improved, HGB is 8.5 now, continue lab monitor pt has hx of anemia. pt had two unit of blood. pt is s/p of surgery. iron study reveals iron deficiency H&H monitor HGB order iron pill (6) HTN (hypertension) stable, resume home Atenolol and Cardizem tele and vital monitor (7) Hx of coronary artery disease Assessment/Plan: stable now. pt denies chest pain, SOB now resume Plavix, Atenolol and Cardizem to control BP continue tele and vital monitor pt is DNR code status (8) confused 08/30 pt became confused this afternoon. order CT of brain, will followup (9) CKD stage III stable (10) elevated liver enzyme enzyme reduced, will continue lab monitor, possible to have US if continue elevated significantly - Current Meds Current Meds: Current Medications Generic Name Dose Route Start Last Admin Trade Name Freq PRN Reason Stop Dose Admin Acetaminophen 650 - 975 mg 08/29/19 11:06 09/01/19 03:48 Tylenol PO 650 mg Q4HR PRN Administration PAIN Atorvastatin Calcium 20 mg 08/29/19 21:00 08/31/19 20:14 Lipitor PO 20 mg QPM MAGGIE Administration Diltiazem HCl 180 mg 08/30/19 09:00 09/01/19 09:32 Cardizem Cd PO 180 mg DAILY MAGGIE Administration Enoxaparin Sodium 40 mg 09/01/19 12:00 09/01/19 12:32 Lovenox SUBQ 40 mg DAILY MAGGIE Administration Escitalopram Oxalate 10 mg 08/30/19 09:00 09/01/19 09:32 Lexapro PO 10 mg DAILY MAGGIE Administration Ferrous Sulfate 325 mg 08/29/19 17:00 09/01/19 09:29 Feosol PO 325 mg BIDWM MAGGIE Administration Magnesium Oxide 400 mg 08/30/19 12:00 09/01/19 12:32 Mag Ox PO 400 mg QDLUNCH MAGGIE Administration Morphine Sulfate 2 mg 08/28/19 10:33 09/01/19 10:13 Morphine (Carpuject) IVP 2 mg Q2HR PRN Administration Pain 8 to 10 Oxycodone HCl 5 mg 08/29/19 11:06 08/31/19 01:07 Roxicodone PO 5 mg Q4HR PRN Administration PAIN Phenol/Menthol 2 sprays 08/29/19 13:27 08/29/19 13:38 Chloraseptic MM 2 sprays Q2HR PRN Administration Throat Pain Polyethylene Glycol 17 gm 08/29/19 09:00 09/01/19 09:32 Miralax PO Not Given DAILY MAGGIE Sodium Chloride 10 ml 08/29/19 17:00 09/01/19 09:32 Normal Saline Flush 0.9% IVP Not Given 0100,0900,1700 MAGGIE Sodium Chloride 10 ml 08/29/19 11:06 09/01/19 03:24 Normal Saline Flush 0.9% IVP 10 ml PRN PRN Administration NEEDED PER PROVIDER ORDERS - Lab Result Fish Bone Diagrams: 09/01/19 05:10 09/01/19 05:10 - Additional Planning My Orders: My Active Orders 08/31/19 15:48 RBC, LEUKOREDUCED Stat TYPE AND SCREEN Stat 09/01/19 Hospice Referral [CONS] Routine 09/01/19 12:00 Enoxaparin [Lovenox] 40 mg SUBQ DAILY 09/01/19 15:48 Clopidogrel [Plavix] 75 mg PO DAILY 09/01/19 15:50 LORazepam [Ativan] 0.5 mg PO Q6H PRN 09/02/19 05:00 CBC - COMP BLD CT W/AUTO DIFF [HEME] DAILYLAB CMP [COMPREHENSIVE METABOLIC PANEL] [CHEM] DAILYLAB 09/03/19 05:00 CBC - COMP BLD CT W/AUTO DIFF [HEME] DAILYLAB CMP [COMPREHENSIVE METABOLIC PANEL] [CHEM] DAILYLAB Subjective - Subjective Nursing Reports: Confused Objective Vital Signs: Vital Signs - 24 hr 08/31/19 09/01/19 09/01/19 20:46 00:30 00:36 Temperature 37 C 36.7 C 37.2 C Heart Rate 63 Heart Rate [ 64 63 Brachial] Respiratory 18 18 18 Rate Blood Pressure 135/49 H Blood Pressure 123/55 L 136/57 H [Right Brachial artery] O2 Saturation 97 99 09/01/19 09/01/19 09/01/19 01:00 03:30 05:00 Temperature 36.8 C 37.4 C 37.0 C Heart Rate 63 63 Heart Rate [ 58 L Brachial] Respiratory 18 18 18 Rate Blood Pressure 138/51 H 140/53 H Blood Pressure 132/44 H [Right Brachial artery] O2 Saturation 92 09/01/19 09/01/19 07:30 15:38 Temperature 37.3 C 37.3 C Heart Rate Heart Rate [ 69 65 Brachial] Respiratory 20 20 Rate Blood Pressure Blood Pressure 153/60 H 155/55 H [Right Brachial artery] O2 Saturation 97 96 Oxygen O2 Source Room air I&O (Last 24 Hrs): Intake and Output Totals x24h 08/30/19 08/31/19 09/01/19 23:59 23:59 23:59 Intake Total 3135.833 3438 1160 Output Total 700 350 Balance 2435.833 3088 1160 General: Alert, Mild distress HEENT: Atraumatic Neck: Supple Lymphatic: no adenopathy Neuro: Alert, Disoriented Cardiovascular: Regular rate Respiratory: Chest non-tender Abdomen: Normal bowel sounds - Results Results: Laboratory Results WBC 7.3 x10^3/uL (4.8-10.8) 09/01/19 05:10 RBC 2.94 10^6/uL (4.70-6.10) L 09/01/19 05:10 Hgb 8.2 g/dL (14.0-18.0) L 09/01/19 05:10 Hct 26.1 % (42.0-52.0) L 09/01/19 05:10 MCV 88.8 fL (80.0-94.0) 09/01/19 05:10 MCH 27.9 pg (27.0-31.0) 09/01/19 05:10 MCHC 31.4 g/dL (32.0-36.0) L 09/01/19 05:10 RDW 15.3 % (12.0-15.0) H 09/01/19 05:10 Plt Count 106 10^3/uL (130-450) L 09/01/19 05:10 MPV 9.4 fL (7.4-11.4) 09/01/19 05:10 Reticulocyte % (Auto) 1.61 % (0.5-2.3) 08/28/19 11:20 Neut # (Auto) 5.1 10^3/uL (1.5-6.6) 09/01/19 05:10 Lymph # (Auto) 1.0 10^3/uL (1.5-3.5) L 09/01/19 05:10 [place] # (Auto) 1.0 10^3/uL (0.0-1.0) 09/01/19 05:10 Eos # (Auto) 0.1 10^3/uL (0.0-0.7) 09/01/19 05:10 Baso # (Auto) 0.0 10^3/uL (0.0-0.1) 09/01/19 05:10 Absolute Nucleated RBC 0.02 x10^3/uL 09/01/19 05:10 Nucleated RBC % 0.3 /100WBC 09/01/19 05:10 Absolute Retic 0.052 10^6/uL (0.020-0.110) 08/28/19 11:20 PT 13.9 secs (9.9-12.6) H 08/28/19 06:55 INR 1.2 (0.8-1.2) 08/28/19 06:55 APTT 28.5 secs (24.9-33.3) 08/28/19 06:55 Anti-Xa Level 0.3 U/mL (-0.7) 09/01/19 05:55 Sodium 139 mmol/L (135-145) 09/01/19 05:10 Potassium 3.6 mmol/L (3.5-5.0) 09/01/19 05:10 Chloride 107 mmol/L (101-111) 09/01/19 05:10 Carbon Dioxide 24 mmol/L (21-32) 09/01/19 05:10 Anion Gap 8.0 (6-13) 09/01/19 05:10 BUN 43 mg/dL (6-20) H 09/01/19 05:10 Creatinine 1.2 mg/dL (0.6-1.2) 09/01/19 05:10 Estimated GFR (MDRD) 57 (>89) L 09/01/19 05:10 Glucose 125 mg/dL (70-100) H 09/01/19 05:10 Calcium 7.7 mg/dL (8.5-10.3) L 09/01/19 05:10 Magnesium 2.1 mg/dL (1.7-2.8) 09/01/19 05:10 Iron 25 ug/dL (45-182) L 08/28/19 06:55 TIBC 399 ug/dL (250-450) 08/28/19 06:55 % Saturation 6 % (20-50) L 08/28/19 06:55 Transferrin 285 mg/dL (180-329) 08/28/19 06:55 Erythropoietin 34.2 mIU/mL (2.6-18.5) H 08/28/19 06:55 Ferritin 14.5 ng/mL (23.9-336.2) L 08/28/19 06:55 Total Bilirubin 2.3 mg/dL (0.2-1.0) H 09/01/19 05:10 AST 137 IU/L (10-42) H 09/01/19 05:10 ALT 119 IU/L (10-60) H 09/01/19 05:10 Alkaline Phosphatase 65 IU/L (42-121) 09/01/19 05:10 Lactate Dehydrogenase 147 IU/L (91-225) 08/28/19 06:55 Troponin I High Sens 3628.0 pg/mL (2.3-19.7) H* 08/31/19 15:48 Total Protein 5.4 g/dL (6.7-8.2) L 09/01/19 05:10 Albumin 2.7 g/dL (3.2-5.5) L 09/01/19 05:10 Globulin 2.7 g/dL (2.1-4.2) 09/01/19 05:10 Albumin/Globulin Ratio 1.0 (1.0-2.2) 09/01/19 05:10 Vitamin B12 471 pg/mL (180-914) 08/28/19 06:55 Urine Color YELLOW 08/31/19 08:40 Urine Clarity CLEAR (CLEAR) 08/31/19 08:40 Urine pH 5.5 PH (5.0-7.5) 08/31/19 08:40 Ur Specific [place] 1.015 (1.002-1.030) 08/31/19 08:40 Urine Protein NEGATIVE mg/dL (NEGATIVE) 08/31/19 08:40 Urine Glucose (UA) NEGATIVE mg/dL (NEGATIVE) 08/31/19 08:40 Urine Ketones NEGATIVE mg/dL (NEGATIVE) 08/31/19 08:40 Urine Occult Blood SMALL (NEGATIVE) H 08/31/19 08:40 Urine Nitrite NEGATIVE (NEGATIVE) 08/31/19 08:40 Urine Bilirubin NEGATIVE (NEGATIVE) 08/31/19 08:40 Urine Urobilinogen 0.2 (NORMAL) E.U./dL (NORMAL) 08/31/19 08:40 Ur Leukocyte Esterase NEGATIVE (NEGATIVE) 08/31/19 08:40 Urine RBC 0-5 /HPF (0-5) 08/31/19 08:40 Urine WBC 0-3 /HPF (0-3) 08/31/19 08:40 Ur Squamous Epith Cells NONE SEEN (<= Few) 08/31/19 08:40 Urine Bacteria Few /HPF (None Seen) 08/31/19 08:40 Ur Microscopic Review NOT INDICATED 08/28/19 07:15 Urine Culture Comments NOT INDICATED 08/31/19 08:40 Blood Type O NEGATIVE 08/31/19 15:48 Blood Type Recheck O NEGATIVE 08/28/19 06:55 Antibody Screen NEGATIVE 08/31/19 15:48 Crossmatch IS Only See Detail 08/31/19 15:48 Sepsis Event Note (H) - Evaluation Current Stage of Sepsis: Ruled out Current Medications - Current Medications Current Medications: Active Medications Acetaminophen (Tylenol) 650 - 975 mg PO Q4HR PRN PRN Reason: PAIN Last Admin: 09/01/19 03:48 Dose: 650 mg Atorvastatin Calcium (Lipitor) 20 mg PO QPM [facility] Last Admin: 08/31/19 20:14 Dose: 20 mg Clopidogrel Bisulfate (Plavix) 75 mg PO DAILY [facility] Diltiazem HCl (Cardizem Cd) 180 mg PO DAILY [facility] Last Admin: 09/01/19 09:32 Dose: 180 mg Docusate Sodium (Colace 100mg Capsule) 100 mg PO BID PRN PRN Reason: Constipation Enoxaparin Sodium (Lovenox) 40 mg SUBQ DAILY [facility] Last Admin: 09/01/19 12:32 Dose: 40 mg Escitalopram Oxalate (Lexapro) 10 mg PO DAILY [facility] Last Admin: 09/01/19 09:32 Dose: 10 mg Ferrous Sulfate (Feosol) 325 mg PO BIDWM [facility] Last Admin: 09/01/19 09:29 Dose: 325 mg Lorazepam (Ativan) 0.5 mg PO Q6H PRN PRN Reason: Anxiety Magnesium Oxide (Mag Ox) 400 mg PO QDLUNCH [facility] Last Admin: 09/01/19 12:32 Dose: 400 mg Morphine Sulfate (Morphine (Carpuject)) 2 mg IVP Q2HR PRN PRN Reason: Pain 8 to 10 Last Admin: 09/01/19 10:13 Dose: 2 mg Nitroglycerin (Nitrostat) 0.4 mg SL Q5M PRN PRN Reason: Chest Pain Ondansetron HCl (Zofran Odt) 4 mg TL Q6HR PRN PRN Reason: Nausea / Vomiting Ondansetron HCl (Zofran Inj) 4 mg IVP Q6HR PRN PRN Reason: Nausea / Vomiting Oxycodone HCl (Roxicodone) 5 mg PO Q4HR PRN PRN Reason: PAIN Last Admin: 08/31/19 01:07 Dose: 5 mg Phenol/Menthol (Chloraseptic) 2 sprays MM Q2HR PRN PRN Reason: Throat Pain Last Admin: 08/29/19 13:38 Dose: 2 sprays Polyethylene Glycol (Miralax) 17 gm PO DAILY [facility] Last Admin: 09/01/19 09:32 Dose: Not Given Prochlorperazine Edisylate (Compazine Inj) 10 mg IVP Q6HR PRN PRN Reason: Nausea / Vomiting Senna (Senokot) 17.2 mg PO Q12H PRN PRN Reason: Constipation Sodium Chloride (Normal Saline Flush 0.9%) 10 ml IVP 0100,0900,1700 [facility] Last Admin: 09/01/19 09:32 Dose: Not Given Sodium Chloride (Normal Saline Flush 0.9%) 10 ml IVP PRN PRN PRN Reason: NEEDED PER PROVIDER ORDERS Last Admin: 09/01/19 03:24 Dose: 10 ml Clopidogrel [Plavix] 75 mg PO DAILY 12/08/16 traMADol [Ultram] 50 mg PO Q6H PRN 12/08/16 Diltiazem HCl [Diltiazem 24Hr Cd] 180 mg PO DAILY 12/09/16 Nitroglycerin [Nitrostat] 0.4 mg SL Q5M PRN 12/09/16 Atenolol [Tenormin] 50 mg PO DAILY 08/29/19 Atorvastatin Calcium 20 mg PO QPM 08/29/19 Cholecalciferol (Vitamin D3) [Vitamin D] 2,000 unit PO DAILY 08/29/19 Cyanocobalamin (Vitamin B-12) [Vitamin B-12 (1000 mcg sublingual)] 1,000 mcg SL DAILY 08/29/19 Escitalopram [Lexapro] 10 mg PO DAILY 08/29/19 Furosemide [Lasix] 80 mg PO DAILY 08/29/19 Pantoprazole [Protonix] 40 mg PO QDAC 08/29/19 Potassium Chloride 20 meq PO DAILYWM 08/29/19
[2019-09-01] MEDS: LORazepam 0.5 MG TABLET PO PRN (16:06)
[2019-09-01] MEDS: oxyCODONE 5 MG TABLET PO PRN (16:06)
[2019-09-01] MEDS: MORPHINE SOL 10 MG/0.5 ML SYRINGE PO PRN (19:07)
[2019-09-01] MEDS: HYDROmorphone 2 MG/ML VIAL IVP PRN (20:48)
[2019-09-02] MEDS: SODIUM CHLORIDE FLUSH 0.9% 10 ML SYRINGE IVP SCH ×3 (00:22→17:37)
[2019-09-02] MEDS: HYDROmorphone 2 MG/ML VIAL IVP PRN (00:44)
[2019-09-02] MEDS: MORPHINE SOL 10 MG/0.5 ML SYRINGE PO PRN ×3 (02:24→15:54)
[2019-09-02] MEDS ORDERED: HYDROmorphone 0.5 MG/0.5 ML SYRINGE IVP PRN (07:24)
[2019-09-02] MEDS ORDERED: CLOPIDOGREL 75 MG TABLET PO SCH (09:00)
[2019-09-02] MEDS: POLYETHYLENE GLYCOL 3350 17 GM PACKET PO SCH (09:01)
--- NOTE | 2019-09-02 14:52 | PROVIDER PROGRESS NOTE ---
Subjective - Prog Note Date Prog Note Date: 09/02/19 Prog Note Time: 14:50 - Subjective Subjective: he sleeps a lot now. does wake up and say a few words. Current Medications - Current Medications Current Medications: Active Medications Acetaminophen (Tylenol) 650 - 975 mg PO Q4HR PRN PRN Reason: PAIN Last Admin: 09/01/19 03:48 Dose: 650 mg Docusate Sodium (Colace 100mg Capsule) 100 mg PO BID PRN PRN Reason: Constipation Hydromorphone HCl (Dilaudid Inj Syringe) 0.5 mg IVP Q2H PRN PRN Reason: PAIN Lorazepam (Ativan) 0.5 mg PO Q6H PRN PRN Reason: Anxiety Last Admin: 09/01/19 16:06 Dose: 0.5 mg Morphine Sulfate (Roxanol) 5 mg PO Q3HR PRN PRN Reason: PAIN Last Admin: 09/02/19 09:01 Dose: 5 mg Ondansetron HCl (Zofran Odt) 4 mg TL Q6HR PRN PRN Reason: Nausea / Vomiting Ondansetron HCl (Zofran Inj) 4 mg IVP Q6HR PRN PRN Reason: Nausea / Vomiting Oxycodone HCl (Roxicodone) 5 mg PO Q4HR PRN PRN Reason: PAIN Last Admin: 09/01/19 16:06 Dose: 5 mg Phenol/Menthol (Chloraseptic) 2 sprays MM Q2HR PRN PRN Reason: Throat Pain Last Admin: 08/29/19 13:38 Dose: 2 sprays Polyethylene Glycol (Miralax) 17 gm PO DAILY [facility] Last Admin: 09/02/19 09:01 Dose: 17 gm Prochlorperazine Edisylate (Compazine Inj) 10 mg IVP Q6HR PRN PRN Reason: Nausea / Vomiting Senna (Senokot) 17.2 mg PO Q12H PRN PRN Reason: Constipation Sodium Chloride (Normal Saline Flush 0.9%) 10 ml IVP 0100,0900,1700 [facility] Last Admin: 09/02/19 09:01 Dose: 10 ml Sodium Chloride (Normal Saline Flush 0.9%) 10 ml IVP PRN PRN PRN Reason: NEEDED PER PROVIDER ORDERS Last Admin: 09/01/19 03:24 Dose: 10 ml Clopidogrel [Plavix] 75 mg PO DAILY 12/08/16 traMADol [Ultram] 50 mg PO Q6H PRN 12/08/16 Diltiazem HCl [Diltiazem 24Hr Cd] 180 mg PO DAILY 12/09/16 Nitroglycerin [Nitrostat] 0.4 mg SL Q5M PRN 12/09/16 Atenolol [Tenormin] 50 mg PO DAILY 08/29/19 Atorvastatin Calcium 20 mg PO QPM 08/29/19 Cholecalciferol (Vitamin D3) [Vitamin D] 2,000 unit PO DAILY 08/29/19 Cyanocobalamin (Vitamin B-12) [Vitamin B-12 (1000 mcg sublingual)] 1,000 mcg SL DAILY 08/29/19 Escitalopram [Lexapro] 10 mg PO DAILY 08/29/19 Furosemide [Lasix] 80 mg PO DAILY 08/29/19 Pantoprazole [Protonix] 40 mg PO QDAC 08/29/19 Potassium Chloride 20 meq PO DAILYWM 08/29/19 Objective - Vital Signs/Intake & Output Reviewed Vital Signs: Yes Intake & Output: Intake & Output 08/30/19 08/31/19 09/01/19 09/02/19 23:59 23:59 23:59 23:59 Intake Total 3135.833 3438 1400 510 Output Total 700 350 100 275 Balance 2435.833 3088 1300 235 - Objective General Appearance: positive: No acute distress, Lethargic Neck: positive: No JVD Respiratory: positive: Chest non-tender, Other (slow, unalbored, shallow respiration, diminished at bases and axilla) Cardiovascular: positive: Regular rate & rhythm, Systolic murmur. 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 He has moderate cognitive deficits because of that. He is fallen and has an intertrochanteric fracture of the right femur. POD #4. Postoperatively he has been having a stuttering [place]. Has chest pain off and on and had some this am. He is confused, lethargic, and really unable to cooperate with physical therapy. Once his troponin spike for a second time, his is decided that it is time to move on with comfort measures. Plan: Comfort measures. These are to continue. Hospice care. Today, the care home facility director is not there and as such the patient cannot be evaluated for [facility]. Nathen govea will be evaluating him tomorrow.
[2019-09-03] MEDS: SODIUM CHLORIDE FLUSH 0.9% 10 ML SYRINGE IVP SCH ×3 (01:00→17:52)
[2019-09-03] MEDS: MORPHINE SOL 10 MG/0.5 ML SYRINGE PO PRN ×2 (05:48→21:55)
[2019-09-03] MEDS: POLYETHYLENE GLYCOL 3350 17 GM PACKET PO SCH (08:23)
--- NOTE | 2019-09-03 15:19 | PROVIDER PROGRESS NOTE ---
Subjective - Prog Note Date Prog Note Date: 09/03/19 Prog Note Time: 15:18 - Subjective Pt reports feeling: Improved Subjective: at the bedside and both of them remark on how less uncomfortable he is. no cp, less sob. Current Medications - Current Medications Current Medications: Active Medications Acetaminophen (Tylenol) 650 - 975 mg PO Q4HR PRN PRN Reason: PAIN Last Admin: 09/01/19 03:48 Dose: 650 mg Docusate Sodium (Colace 100mg Capsule) 100 mg PO BID PRN PRN Reason: Constipation Docusate Sodium (Colace 250mg Capsule) 250 - 500 mg PO DAILY [facility] Hydromorphone HCl (Dilaudid Inj Syringe) 0.5 mg IVP Q2H PRN PRN Reason: PAIN Lorazepam (Ativan) 0.5 mg PO Q6H PRN PRN Reason: Anxiety Last Admin: 09/01/19 16:06 Dose: 0.5 mg Morphine Sulfate (Roxanol) 5 mg PO Q3HR PRN PRN Reason: PAIN Last Admin: 09/03/19 05:48 Dose: 5 mg Ondansetron HCl (Zofran Odt) 4 mg TL Q6HR PRN PRN Reason: Nausea / Vomiting Ondansetron HCl (Zofran Inj) 4 mg IVP Q6HR PRN PRN Reason: Nausea / Vomiting Oxycodone HCl (Roxicodone) 5 mg PO Q4HR PRN PRN Reason: PAIN Last Admin: 09/01/19 16:06 Dose: 5 mg Phenol/Menthol (Chloraseptic) 2 sprays MM Q2HR PRN PRN Reason: Throat Pain Last Admin: 08/29/19 13:38 Dose: 2 sprays Polyethylene Glycol (Miralax) 17 gm PO DAILY [facility] Last Admin: 09/03/19 08:23 Dose: 17 gm Prochlorperazine Edisylate (Compazine Inj) 10 mg IVP Q6HR PRN PRN Reason: Nausea / Vomiting Senna (Senokot) 17.2 mg PO Q12H PRN PRN Reason: Constipation Senna (Senokot) 8.6 - 17.2 mg PO DAILY [facility] Sodium Chloride (Normal Saline Flush 0.9%) 10 ml IVP 0100,0900,1700 [facility] Last Admin: 09/03/19 08:23 Dose: 10 ml Sodium Chloride (Normal Saline Flush 0.9%) 10 ml IVP PRN PRN PRN Reason: NEEDED PER PROVIDER ORDERS Last Admin: 09/01/19 03:24 Dose: 10 ml Clopidogrel [Plavix] 75 mg PO DAILY 12/08/16 traMADol [Ultram] 50 mg PO Q6H PRN 12/08/16 Diltiazem HCl [Diltiazem 24Hr Cd] 180 mg PO DAILY 12/09/16 Nitroglycerin [Nitrostat] 0.4 mg SL Q5M PRN 12/09/16 Atenolol [Tenormin] 50 mg PO DAILY 08/29/19 Atorvastatin Calcium 20 mg PO QPM 08/29/19 Cholecalciferol (Vitamin D3) [Vitamin D] 2,000 unit PO DAILY 08/29/19 Cyanocobalamin (Vitamin B-12) [Vitamin B-12 (1000 mcg sublingual)] 1,000 mcg SL DAILY 08/29/19 Escitalopram [Lexapro] 10 mg PO DAILY 08/29/19 Furosemide [Lasix] 80 mg PO DAILY 08/29/19 Pantoprazole [Protonix] 40 mg PO QDAC 08/29/19 Potassium Chloride 20 meq PO DAILYWM 08/29/19 Objective - Vital Signs/Intake & Output Reviewed Vital Signs: Yes Intake & Output: Intake & Output 08/31/19 09/01/19 09/02/19 09/03/19 23:59 23:59 23:59 22:59 Intake Total 3438 1400 1053 700 Output Total 350 100 475 275 Balance 3088 1300 578 425 - Objective General Appearance: positive: No acute distress, Alert Respiratory: positive: Chest non-tender, No respiratory distress, Rales. negative: Wheezes, Rhonchi Cardiovascular: positive: Irregularly irregular, Systolic murmur. negative: Gallop/S4, Friction rub Abdomen: positive: Non-tender, No organomegaly, Nml bowel sounds, No distention Extremities: positive: Pedal edema Neurologic/Psychiatric: positive: Other (slight hemiplegia, speech clear. 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 He has moderate cognitive deficits because of that. He is fallen and has an intertrochanteric fracture of the right femur. POD #4. Postoperatively he has been having a stuttering [place]. Has chest pain off and on and had some this am. He is confused, lethargic, and really unable to cooperate with physical therapy. Once his troponin spike for a second time, his is decided that it is time to move on with comfort measures. Plan: Comfort measures. These are to continue. Hospice care. [facility] not [facility] and as such the patient cannot be evaluated for [facility]. Nathen govea evaluated him today and declined. So hopefully to COW tomorrow.
[2019-09-03] MEDS: LORazepam 0.5 MG TABLET PO PRN (17:50)
[2019-09-04] MEDS: MORPHINE SOL 10 MG/0.5 ML SYRINGE PO PRN (02:47)
[2019-09-04] MEDS: SODIUM CHLORIDE FLUSH 0.9% 10 ML SYRINGE IVP SCH ×2 (02:47→10:00)
[2019-09-04 05:50] LABS: HGB - HEMOGLOBIN 8.9 g/dL (14.0-18.0); MEAN CORPUSCULAR HEMOGLOBIN 28.2 pg (27.0-31.0); MEAN CORPUSCULAR HGB CONC 31.3 g/dL (32.0-36.0); MEAN CORPUSCULAR VOLUME 89.9 fL (80.0-94.0); MEAN PLATELET VOLUME 9.1 fL (7.4-11.4); RED BLOOD COUNT 3.16 10^6/uL (4.70-6.10); WHITE BLOOD COUNT 7.1 x10^3/uL (4.8-10.8)
[2019-09-04] MEDS ORDERED: DOCUSATE SODIUM 250 MG CAPSULE PO SCH (09:00)
[2019-09-04] MEDS ORDERED: SENNA 8.6 MG TABLET PO SCH (09:00)
[2019-09-04] MEDS: POLYETHYLENE GLYCOL 3350 17 GM PACKET PO SCH (09:27)
--- NOTE | 2019-09-04 11:02 | Discharge Plan ---
"Discharge Plan for SNF / [facility] - Discharge Plan And Transition Orders Problem Reviewed?: Yes Disposition: 03 SNF DC/Xfer Condition: Stable Allergies and Adverse Reactions: Allergies Allergy/AdvReac Type Severity Reaction Status Date / Time No Known Drug Allergies Allergy Verified 08/28/19 05:45 Health Concerns: You had fallen down 3 times this month at home. You have been picked up by EMS. You have a history of stroke, right body weakness already. You fell again and had to be brought to the hospital because you had a hip fracture. Unfortunately after the hip fracture you had a stuttering heart attack. Over the course of 3 days you were not doing well and we thought you are going to pass away. We were making arrangements to transfer you to [facility] for hospice care. However you are more awake, more alert, and physical therapy reevaluated you. You now are a candidate for physical therapy at [facility] and we are canceling hospice. Plan of Treatment: 1. Transfer to [facility] facility for rehab 2. While you are in rehab, your needs to make arrangements to do private rn transitional care at home because she cannot take care of you on her own 3. Palliative care consultation to continue with Leatha Garcia so she can guide you and your as you move forward Care Goals: To return to home with private care givers and your with Palliative Care to follow Assessment: has requested these goals and understands - SNF / [facility] Transition Orders Admit to (Facility): [facility] Under the care of (Name): Saul Guzman MD Discharge Diagnosis: 1. Intertrochanteric fracture of the right femur 2. Non-ST elevated CT 3. 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 Acute blood loss anemia as a result of surgery 5. Hypertension 6. Metabolic encephalopathy, resolved 7. Chronic kidney disease stage III 8. Acute elevated liver enzymes, resolved Medicare Certification Statement: I certify that [facility] care is medically necessary on a co ntinuing basis for any of the conditions for which she/he is receiving care during hospitalization. Notify PCP of admission and forward orders to primary provider for signature. Weight on admission and: Weekly Other Notification Orders: Call PCP immediately if patient develops dyspnea, chest pain/tightness or edema. House Bowel Program: Yes Additional Bowel Program Orders: If no BM after 2 days, nurse may give M.O.M. 30ml PO PRN and/or ducolax Supp 1 NE and/or CLEMENTE 250mg P.O., and/or senna 1-2 tabs PO. On day 3 nurse may give repeat above order until residents constipation is resolved. Annual Influenza Vaccine (between Jul 02 and January 29): Yes Two-step PPD per [facility] [id number] or approved exception documents: Yes Medication Orders: PLEASE REFER TO THE DISCHARGE MEDICATION LIST. Insulin Orders?: No - Diet Type: Geriatric Texture: Regular Liquids: Thin - Therapies | Activity Therapy: Evaluation | Treat if indicated: PT, OT Rehabilitation Potential: Maximize functional status, Return to independent living Activity: Activity as Tolerated Additional Instructions: At discharge, I am stopping Lasix and potassium. He has a normal echocardiogram EF of 60-65% from August 30. Aim for palliative care. Minimal medicines as possible. He may need to be reevaluated for fluid retention in the next few days. He has not been on any of his usual home medicines for several days. At discharge, he is being resumed on his atenolol, atorvastatin, aspirin but not cardizem."
[2019-09-04 11:39] VITALS: BP 152/92
--- NOTE | 2019-09-04 19:34 | DISCHARGE SUMMARY ---
Discharge Summary Admit Date: 08/28/19 Discharge Date: 09/04/19 Discharging Provider: Kriss Sanchez MD Primary Care Provider: Saul Guzman MD Code Status: Do Not Attempt Resuscitation Condition at Discharge: Stable Discharge Disposition: 03 SNF DC/Xfer - DIAGNOSES Discharge Diagnoses with Status of Each Condition: 1. Intertrochanteric fracture of the right femur 2. Non-ST elevated [place] 3. 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 Acute blood loss anemia as a result of surgery 5. Hypertension 6. Metabolic encephalopathy, resolved 7. Chronic kidney disease stage III 8. Acute elevated liver enzymes, resolved - HPI History of Present Illness: He had a stroke in 2017 which left him with right body weakness. He walks w a walker at home and is able to help his help him. But he cannot be left al one. He has fallen 3 times this month and can't say why. He denies illness or change in status. He also is unhappy at being in the hospital and keeps repeating, "I never want to do this again." On exam, he had right body weakness and was unable to move his right leg. He was alert, not able to give a complete history and related a level on independence that is doubtful. His has already gone home and not able to verify. HIs lungs were clear, no repiratory distress. - CONSULTS | PROCEDURES Consultations: Contreras Watkins, Orthopedics Procedures: Open reduction and long InterTan nailing of right femoral fracture., Transfusion of 5 units of PRBC - HOSPITAL COURSE Hospital Course: In the preop setting we noted a high risk of complication with preop eval. He already had anemia and had plavix on board. He was transfused 2 units of PRBC and his hemoglobin did not change. As such, post operatively, he was transfused a total of 3 more units in view of low hemoglobin and and complication of NSTEMI. We did discuss the case with Cardiology and medical management without coronary intervention recommended. He was on a heparin drip with this know acute blood loss anemia. He did develop acute confusion and worsening right body weakness. In spite of the heparin, statin, ASA, etc., his troponins candida, dropped and candida again indicating stuttering [place]. ECHO showed EF 60-65% and Grade I diastolic dysfunction. With overall poor prognosis, and lack of recovery, his could not take him home. After many discussions, he was transitioned to comfort care and plan was for transfer to [facility] with Hospice care. The day before discharge, he became awake, alert, vitals stabilized. now felt hopeful there could be some recovery and wanted to give him a chance. As s [facility], Physical therapy evaluated him and he was able to cooperate and work well with PT. SNF for rehab was recommended and he was transferred to [facility]. - ALLERGIES Allergies/Adverse Reactions: Allergies Allergy/AdvReac Type Severity Reaction Status Date / Time No Known Drug Allergies Allergy Verified 08/28/19 05:45 - MEDICATIONS Home Medications: Ambulatory Orders Medication Instructions Recorded Confirmed Clopidogrel [Plavix] 75 mg PO DAILY 12/08/16 08/29/19 traMADol [Ultram] 50 mg PO Q6H PRN 12/08/16 08/29/19 Diltiazem HCl [Diltiazem 24Hr Cd] 180 mg PO DAILY 12/09/16 08/29/19 Nitroglycerin [Nitrostat] 0.4 mg SL Q5M PRN 12/09/16 08/29/19 Atenolol [Tenormin] 50 mg PO DAILY 08/29/19 08/29/19 Atorvastatin Calcium 20 mg PO QPM 08/29/19 08/29/19 Cyanocobalamin (Vitamin B-12) 1,000 mcg SL DAILY 08/29/19 08/29/19 [Vitamin B-12 (1000 mcg sublingual)] Escitalopram [Lexapro] 10 mg PO DAILY 08/29/19 08/29/19 Pantoprazole [Protonix] 40 mg PO QDAC 08/29/19 08/29/19 Acetaminophen [Tylenol] 650 - 975 mg PO Q4HR PRN tablet 09/04/19 - PHYSICAL EXAM AT DISCHARGE General Appearance: positive: No acute distress, Alert Eyes Bilateral: positive: PERRL ENT: positive: Pharynx nml Neck: positive: No JVD. negative: Stiff neck, Carotid bruit Respiratory: positive: Chest non-tender, No respiratory distress, Rales (inte rmittently with shallow respiration that cleared with ocugh) Cardiovascular: positive: Regular rate & rhythm, Systolic murmur. negative: Gallop/S4, Friction rub Abdomen: positive: Non-tender, No organomegaly, Nml bowel sounds, No distention Skin: positive: Warm, Dry Extremities: positive: Pedal edema Neurologic/Psychiatric: positive: Disoriented to place, Disoriented to time. negative: CN's nml (2-12) (right facial droop is mild with very mild speech impairment), Motor nml (right hemiplegia ) - LABS Result Diagrams: 09/04/19 05:15 09/01/19 05:10
== END 2019-09-04 16:17 | DRG 480 ==
LOC: EDUNIT# → ED 05:25 → MS3 09:09 → MS2 08-30 20:41
PROVIDERS: ADMIT Internal Medicine; ATTEND Specialist
PROC: 30233N1 Transfusion of Nonautologous Red Blood Cells into Peripheral Vein, Percutaneous Approach (ICD-10-PCS; 2019-08-29)
PROC: 0QS606Z Reposition Right Upper Femur with Intramedullary Internal Fixation Device, Open Approach (ICD-10-PCS; principal; 2019-08-29 07:30)
DX: S72.141A Displaced intertrochanteric fracture of right femur, initial encounter for closed fracture (principal); I21.4 Non-ST elevation (NSTEMI) myocardial infarction; G93.41 Metabolic encephalopathy; D64.9 Anemia, unspecified; I10 Essential (primary) hypertension; E78.00 Pure hypercholesterolemia, unspecified; I69.351 Hemiplegia and hemiparesis following cerebral infarction affecting right dominant side; M19.011 Primary osteoarthritis, right shoulder; D62 Acute posthemorrhagic anemia; I69.311 Memory deficit following cerebral infarction; I69.392 Facial weakness following cerebral infarction; I12.9 Hypertensive chronic kidney disease with stage 1 through stage 4 chronic kidney disease, or unspecified chronic kidney disease; Z86.73 Personal history of transient ischemic attack (TIA), and cerebral infarction without residual deficits; N18.3 Chronic kidney disease, stage 3 (moderate); W18.30XA Fall on same level, unspecified, initial encounter; Y93.01 Activity, walking, marching and hiking; Y92.009 Unspecified place in unspecified non-institutional (private) residence as the place of occurrence of the external cause; D50.9 Iron deficiency anemia, unspecified; R79.89 Other specified abnormal findings of blood chemistry; K21.9 Gastro-esophageal reflux disease without esophagitis; E78.5 Hyperlipidemia, unspecified; I25.10 Atherosclerotic heart disease of native coronary artery without angina pectoris; M20.091 Other deformity of right finger(s); I89.0 Lymphedema, not elsewhere classified; Z96.651 Presence of right artificial knee joint; Z51.5 Encounter for palliative care; Z66 Do not resuscitate; Z79.82 Long term (current) use of aspirin; Z79.02 Long term (current) use of antithrombotics/antiplatelets; Z95.5 Presence of coronary angioplasty implant and graft; Z87.891 Personal history of nicotine dependence; Z87.11 Personal history of peptic ulcer disease; Z91.81 History of falling
CPT/HCPCS: 36415; 70450; 71045; 73030; 73502; 80048; 80053; 81001; 81003; 82607; 82668; 82728; 83540; 83615; 83735; 84466; 84484; 85014; 85018; 85025; 85027; 85045; 85520; 85610; 85730; 86850; 86900; 86901; 86920; 93005; 93306; 96374; 97162; 97164; 97530; 99285; A9270; J1170; J1650; J7120; P9016; 87086

== ENCOUNTER 2019-09-04 16:14 | Outpatient (CLI) | payer MEDICARE, BC | END 2019-09-04 16:15 | LOC: EMS 16:14 | PROVIDERS: ATTEND Surgery | DX: I21.4 Non-ST elevation (NSTEMI) myocardial infarction (principal); S72.001A Fracture of unspecified part of neck of right femur, initial encounter for closed fracture; W19.XXXA Unspecified fall, initial encounter ==

== ENCOUNTER 2019-10-02 08:30 | Outpatient (CLI) | payer MEDICARE, BC ==
[2019-10-02 14:51] LABS: BILIRUBIN,URINE NEGATIVE (NEGATIVE); GLUCOSE, URINE (UA) NEGATIVE (NEGATIVE); KETONES,URINE (UA) NEGATIVE (NEGATIVE); LEUKOCYTE ESTERASE, URINE MODERATE (NEGATIVE); NITRITE,URINE POSITIVE (NEGATIVE); OCCULT BLOOD,URINE LARGE (NEGATIVE); PH,URINE 5.5 PH (5.0-7.5); PROTEIN,URINE 100 mg/dL (NEGATIVE); UROBILINOGEN,URINE 0.2 (NORMAL) E.U./dL (NORMAL)
[2019-10-02 14:54] LABS: BACTERIA,URINE Moderate /HPF (None Seen); CLARITY,URINE BLOODY (CLEAR); RBC,URINE TNTC /HPF (0-5); SQUAMOUS EPITHELIAL CELL,UR NONE SEEN (<= Few)
== END 2019-10-02 23:59 | disposition home or self-care (01) ==
LOC: LAB.R 08:30
DX: N39.0 Urinary tract infection, site not specified (principal)
CPT/HCPCS: 81001; 81003; 87077; 87086; 87181

== ENCOUNTER 2019-10-07 18:55 | Outpatient (CLI) | payer MEDICARE, BC ==
[2019-10-07 19:30] LABS: CALCIUM 9.7 mg/dL (8.5-10.3); CREATININE 1.2 mg/dL (0.6-1.2)
[2019-10-07 19:33] LABS: BASOPHILS % (AUTO) 0.5 %; EOSINOPHILS # (AUTO) 0.2 10^3/uL (0.0-0.7); EOSINOPHILS % (AUTO) 2.6 %; HGB - HEMOGLOBIN 9.7 g/dL (14.0-18.0); LYMPHOCYTES % (AUTO) 15.4 %; MEAN CORPUSCULAR HEMOGLOBIN 28.1 pg (27.0-31.0); MEAN CORPUSCULAR HGB CONC 31.1 g/dL (32.0-36.0); MEAN CORPUSCULAR VOLUME 90.4 fL (80.0-94.0); MEAN PLATELET VOLUME 8.5 fL (7.4-11.4); MONOCYTES # (AUTO) 0.8 10^3/uL (0.0-1.0); MONOCYTES % (AUTO) 11.6 %; NEUTROPHILS # (AUTO) 4.5 10^3/uL (1.5-6.6); NEUTROPHILS % (AUTO) 69.4 %; PLT - PLATELET COUNT 157 10^3/uL (130-450); RED BLOOD COUNT 3.45 10^6/uL (4.70-6.10); RED CELL DISTRIBUTION WIDTH 15.5 % (12.0-15.0); WHITE BLOOD COUNT 6.5 x10^3/uL (4.8-10.8)
== END 2019-10-07 23:59 | disposition home or self-care (01) ==
LOC: LAB.R 18:55
DX: I10 Essential (primary) hypertension (principal); D50.0 Iron deficiency anemia secondary to blood loss (chronic)
CPT/HCPCS: 80048; 85025

== ENCOUNTER 2019-11-23 22:51 | Outpatient (CLI) | payer MEDICARE, BC | END 2019-11-23 22:52 | disposition critical access hospital (66) | LOC: EMS 22:51 | PROVIDERS: ATTEND Surgery | DX: M54.2 Cervicalgia (principal); R07.9 Chest pain, unspecified; R06.02 Shortness of breath; M25.512 Pain in left shoulder | CPT/HCPCS: A0425; A0429 ==

== ENCOUNTER 2019-11-23 22:57 | Emergency (ER) | payer MEDICARE, BC ==
--- NOTE | 2019-11-23 23:03 | ED Physician Documentation ---
History of Present Illness - Stated complaint Stated Complaint: FALL - History obtained from History obtained from: Patient, Family (Patient is an 89-year-old male who is a DNR, DNI, comfort care measures only he stays at a assisted living facility was brought in for evaluation after he was found lying down. The patient denies any complaints and reports that he wants to go back home. The remainder the history is obtained from previous medical records.), EMS Review of Systems Unable to obtain: Confused PD PAST MEDICAL HISTORY - Past Medical History Cardiovascular: Hypertension, High cholesterol, Coronary artery disease Respiratory: None Neuro: Dementia, CVA Endocrine/Autoimmune: None GI: GERD : None Psych: None Musculoskeletal: Hemiplegia Derm: None - Past Surgical History Past Surgical History: Yes Cardiovascular: Coronary stent - Present Medications Home Medications: Ambulatory Orders Medication Instructions Recorded Confirmed Diltiazem HCl [Diltiazem 24Hr Cd] 180 mg PO DAILY 12/09/16 08/29/19 Nitroglycerin [Nitrostat] 0.4 mg SL Q5M PRN 12/09/16 08/29/19 Escitalopram [Lexapro] 10 mg PO DAILY 08/29/19 08/29/19 Pantoprazole [Protonix] 40 mg PO QDAC 08/29/19 08/29/19 Acetaminophen [Tylenol] 650 - 975 mg PO Q4HR PRN tablet 09/04/19 Atenolol [Tenormin] 1 tab DAILY 11/24/19 11/24/19 Atorvastatin [Lipitor] 2 tab DAILY 11/24/19 11/24/19 Calcium Carbonate 2 tab DAILY 11/24/19 11/24/19 Cholecalciferol (Vitamin D3) 2 tab DAILY 11/24/19 11/24/19 [Vitamin D3] Clopidogrel [Plavix] 75 mg DAILY 11/24/19 11/24/19 Cyanocobalamin (Vitamin B-12) 1 tab DAILY 11/24/19 11/24/19 [Vitamin B-12 (1000 mcg sublingual)] Ferrous Gluconate [Iron] 1 tab DAILY 11/24/19 11/24/19 Losartan Potassium 1 tab DAILY 11/24/19 11/24/19 - Allergies Allergies/Adverse Reactions: Allergies Allergy/AdvReac Type Severity Reaction Status Date / Time No Known Drug Allergies Allergy Verified 08/28/19 05:45 - Social History Does the pt smoke?: No Smoking Status: Former smoker Does the pt drink ETOH?: No - Immunizations Immunizations are current?: Yes PD ED PE NORMAL - Vitals Vital signs reviewed: Yes - HEENT HEENT: PERRL - Neck Neck: Supple, no meningeal sign - Cardiac Cardiac: RRR, No murmur - Respiratory Respiratory: Clear bilaterally - Abdomen Abdomen: Normal bowel sounds, Soft, Non tender, Non distended - Derm Derm: Warm and dry - Extremities Extremities: No deformity - Neuro Neuro: Other (The patient is confused he is not oriented to time or place or person) - Psych Psych: Normal mood, Normal affect Results - Vitals Vitals: Vital Signs - 24 hr 11/23/19 11/24/19 23:07 02:01 Temperature 36.5 C 36.6 C Heart Rate 69 66 Respiratory 18 18 Rate Blood Pressure 129/61 135/67 H O2 Saturation 100 95 Oxygen O2 Source Nasal cannula - EKG (time done) 23:25 Rate: Other (EKG shows a rate of 69 parable 151 QRS 95 QTC 533 P waves are upright leads I to III inverted in aVR there is no OH depression elevation in leads to aVR respectively there is leftward axis there is some mild ST depres otoniel in V3 as well as V4 this is an abnormal EKG) - Labs Labs: Laboratory Tests 11/23/19 11/23/19 11/23/19 23:25 23:25 23:25 WBC 8.3 RBC 2.36 L Hgb 7.0 L* Hct 22.3 L MCV 94.5 H MCH 29.7 MCHC 31.4 L RDW 17.1 H Plt Count 180 MPV 8.1 Neut # (Auto) 6.1 Lymph # (Auto) 1.2 L [place] # (Auto) 0.9 Eos # (Auto) 0.0 Baso # (Auto) 0.0 Absolute Nucleated RBC 0.00 Nucleated RBC % 0.0 PT 14.9 H INR 1.3 H APTT 26.8 Sodium 140 Potassium 2.2 L* Chloride 103 Carbon Dioxide 25 Anion Gap 12.0 BUN 27 H Creatinine 1.3 H Estimated GFR (MDRD) 52 L Glucose 135 H Calcium 7.9 L Magnesium Total Bilirubin 0.6 AST 29 ALT 21 Alkaline Phosphatase 99 Troponin I High Sens B-Natriuretic Peptide Total Protein 6.0 L Albumin 2.7 L Globulin 3.3 Albumin/Globulin Ratio 0.8 L Lipase 39 Ethyl Alcohol < 5.0 Blood Type Antibody Screen Crossmatch IS Only 11/23/19 11/23/19 11/23/19 23:25 23:25 23:25 WBC RBC Hgb Hct MCV MCH MCHC RDW Plt Count MPV Neut # (Auto) Lymph # (Auto) [place] # (Auto) Eos # (Auto) Baso # (Auto) Absolute Nucleated RBC Nucleated RBC % PT INR APTT Sodium Potassium Chloride Carbon Dioxide Anion Gap BUN Creatinine Estimated GFR (MDRD) Glucose Calcium Magnesium 1.2 L Total Bilirubin AST ALT Alkaline Phosphatase Troponin I High Sens 2046.0 H* B-Natriuretic Peptide 670 H Total Protein Albumin Globulin Albumin/Globulin Ratio Lipase Ethyl Alcohol Blood Type Antibody Screen Crossmatch IS Only 11/24/19 01:00 WBC RBC Hgb Hct MCV MCH MCHC RDW Plt Count MPV Neut # (Auto) Lymph # (Auto) [place] # (Auto) Eos # (Auto) Baso # (Auto) Absolute Nucleated RBC Nucleated RBC % PT INR APTT Sodium Potassium Chloride Carbon Dioxide Anion Gap BUN Creatinine Estimated GFR (MDRD) Glucose Calcium Magnesium Total Bilirubin AST ALT Alkaline Phosphatase Troponin I High Sens B-Natriuretic Peptide Total Protein Albumin Globulin Albumin/Globulin Ratio Lipase Ethyl Alcohol Blood Type O NEGATIVE Antibody Screen NEGATIVE Crossmatch IS Only See Detail PD MEDICAL DECISION MAKING - Consults Consults: Discussed case with (case d/w DR MARQUITA MARTINO. After lengthy discussion with the patient's the patient is a DNR, DNI and comfort measures only the patient and the patient's would like this patient to be returned to the assisted living facility. Patient will be treated with potassium here orally as well as IV we did offer to transfuse blood and admit this patient however the patient's would like the patient to be discharged back to the assisted living facility and does not want him to be admitted to the hospital at this time.) Departure - Departure Disposition: 01 Home, Self Care Clinical Impression: NSTEMI (non-ST elevated myocardial infarction), Fall from ground level, Hypokalemia Anemia Qualifiers: Anemia type: unspecified type Qualified Code(s): D64.9 - Anemia, unspecified Condition: Critical Instructions: Heart Attack Dc, Hypokalemia Dc, ED Heart Disease Risk Factors Follow-Up: Ky Shankar MD [Primary Care Provider] - Tomorrow Discharge Date/Time: 11/24/19 02:11
[2019-11-23 23:34] LABS: BASOPHILS % (AUTO) 0.4 %; EOSINOPHILS % (AUTO) 0.4 %; LYMPHOCYTES # (AUTO) 1.2 10^3/uL (1.5-3.5); LYMPHOCYTES % (AUTO) 14.5 %; MEAN CORPUSCULAR HEMOGLOBIN 29.7 pg (27.0-31.0); MEAN CORPUSCULAR HGB CONC 31.4 g/dL (32.0-36.0); MEAN CORPUSCULAR VOLUME 94.5 fL (80.0-94.0); MEAN PLATELET VOLUME 8.1 fL (7.4-11.4); MONOCYTES # (AUTO) 0.9 10^3/uL (0.0-1.0); MONOCYTES % (AUTO) 10.6 %; NEUTROPHILS # (AUTO) 6.1 10^3/uL (1.5-6.6); NEUTROPHILS % (AUTO) 73.4 %; PLT - PLATELET COUNT 180 10^3/uL (130-450); RED BLOOD COUNT 2.36 10^6/uL (4.70-6.10); RED CELL DISTRIBUTION WIDTH 17.1 % (12.0-15.0); WHITE BLOOD COUNT 8.3 x10^3/uL (4.8-10.8)
[2019-11-23 23:40] LABS: INR 1.3 (0.8-1.2); PT - PROTHROMBIN TIME 14.9 secs (9.9-12.6)
[2019-11-23 23:47] LABS: PARTIAL THROMBOPLASTIN TIME 26.8 secs (24.9-33.3)
[2019-11-23 23:48] LABS: ALBUMIN 2.7 g/dL (3.2-5.5); ALBUMIN/GLOBULIN RATIO 0.8 (1.0-2.2); ALKALINE PHOSPHATASE 99 IU/L (42-121); ALT ALANINE AMINOTRANSFERASE 21 IU/L (10-60); AST ASPARTATE AMINOTRANSFERASE 29 IU/L (10-42); BILIRUBIN,TOTAL 0.6 mg/dL (0.2-1.0); BUN - BLOOD UREA NITROGEN 27 mg/dL (6-20); CALCIUM 7.9 mg/dL (8.5-10.3); CARBON DIOXIDE - CO2 25 mmol/L (21-32); CHLORIDE 103 mmol/L (101-111); CREATININE 1.3 mg/dL (0.6-1.2); GFR - MDRD 52 (>89); GLUCOSE 135 mg/dL (70-100); LIPASE 39 U/L (22-51); SODIUM 140 mmol/L (135-145)
--- NOTE | 2019-11-24 00:12 | CT Report ---
Reason: fall head injury Procedure Date: 11/23/2019 Accession Number: [id number] / [id number] Procedure: CT - HEAD WO CPT Code: Final Report FULL RESULT: EXAM: CT HEAD EXAM DATE: 11/23/2019 11:56 PM. CLINICAL HISTORY: Fall head injury. COMPARISON: HEAD W/O 08/30/2019 4:13 PM. TECHNIQUE: Multiaxial CT images were obtained from the foramen magnum to the vertex. Reformats: Sagittal and coronal. IV contrast: None. In accordance with CT protocol optimization, one or more of the following dose reduction techniques were utilized for this exam: automated exposure control, adjustment of mA and/or KV based on patient size, or use of iterative reconstructive technique. FINDINGS: Parenchyma: No intraparenchymal hemorrhage. No evidence of mass, midline shift, or CT findings of infarction. Frey-white differentiation is distinct. Hypoattenuation in the periventricular white matter is consistent with chronic small vessel ischemic changes. The old left basal ganglia infarct is unchanged. Small calcifications are present in the basal ganglia. There is mild cerebral volume loss. A calcification is seen in the right occipital lobe. Extraaxial Spaces: Normal for age. No subdural or epidural collections identified. Ventricles: The ventricles are mildly enlarged as a result of cerebral atrophy. Sinuses and Orbits: Imaged paranasal sinuses, orbits, and mastoids show no significant abnormality. Bones: No evidence of fracture or calvarial defect. Other: None. IMPRESSION: No acute intracranial abnormality. Old left lacunar infarct, unchanged. RADIA
--- NOTE | 2019-11-24 00:17 | XRAY Report ---
Reason: fall neck pain Procedure Date: 11/24/2019 Accession Number: [id number] / [id number] Procedure: XR - Chest 1 View X-Ray CPT Code: 58946 Final Report FULL RESULT: EXAM: CHEST RADIOGRAPHY. EXAM DATE: 11/24/2019 12:01 AM. CLINICAL HISTORY: Fall, neck pain. COMPARISON: CHEST 1 VIEW 08/31/2019 7:50 AM. TECHNIQUE: 1 view. FINDINGS: Lungs/Pleura: There are hazy bilateral lower lung opacities. No definite pleural effusion or pneumothorax. Mediastinum: Within exam limitations, the cardiomediastinal contour is normal. Other: None. IMPRESSION: 1. Bibasilar opacities suspicious for atelectasis versus acute airspace disease. [facility]
[2019-11-24] MEDS ORDERED: POTASSIUM CHLOR 20 MEQ/100 ML 20 MEQ/100 ML BAG IV ONE ×2 (00:45→00:46)
[2019-11-24] MEDS ORDERED: POTASSIUM CHLOR 10 MEQ/100 ML 10 MEQ/100 ML BAG IV STA (00:46)
--- NOTE | 2019-11-24 01:04 | CT Report ---
Reason: fall neck pain Procedure Date: 11/23/2019 Accession Number: [id number] / [id number] Procedure: CT - CERVICAL SPINE WO CPT Code: Final Report FULL RESULT: EXAM: CT CERVICAL SPINE WITHOUT CONTRAST. DATE: 11/23/2019 11:56 PM. HISTORY: Fall, neck pain. COMPARISONS: CHEST 1 VIEW 11/23/2019 11:26 PM. CERVICAL SPINE W/O 08/03/2019 3:35 PM. TECHNIQUE: Thin-section axial images were acquired of the cervical spine without contrast. Post-processing: Coronal and sagittal reformats. Other: None. In accordance with CT protocol optimization, one or more of the following dose reduction techniques were utilized for this exam: automated exposure control, adjustment of mA and/or KV based on patient size, or use of iterative reconstructive technique. FINDINGS: Alignment: Stable without acute malalignment seen. No scoliosis or spondylolisthesis. Bones and disks: Bamboo spine with bridging osteophytes anteriorly. No definite fracture seen. The discontinuity of the anterior C3-C4 osteophyte is chronic. No paravertebral edema identified. No high-grade central canal stenosis. 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 Other: The paravertebral and prevertebral soft tissues are unremarkable. The lung apices demonstrate probable pulmonary edema. IMPRESSION: No cervical fracture or malalignment seen. Of note, patient has a bamboo-type spine, placing him at high-risk for hyperextension fractures, often through disk levels which can be very difficult to see by CT. No secondary signs of such a fracture are identified but if there is continued clinical concern, there should be low threshold for MRI in this patient. [facility]
[2019-11-24] MEDS ORDERED: ATORVASTATIN 10 MG TABLET PO STA (01:27)
[2019-11-24] MEDS ORDERED: ASPIRIN EC 325 MG TABLET PO SCH ×3 (01:43→09:00)
[2019-11-24] MEDS ORDERED: POTASSIUM CHLORIDE 20 MEQ/15 ML UDC PO SCH ×3 (01:44→08:00)
[2019-11-24] MEDS ORDERED: ASPIRIN 325 MG TABLET PO STA (01:49)
[2019-11-24] MEDS ORDERED: POTASSIUM CHLORIDE 20 MEQ/15 ML UDC PO STA (01:55)
[2019-11-24 02:02] VITALS: BP 135/67
[2019-11-24] MEDS ORDERED: METOPROLOL SUCCINATE 25 MG TABLET PO SCH (09:00)
== END 2019-11-24 02:11 | disposition home or self-care (01) ==
LOC: EDUNIT# → ED 22:57
DX: I21.4 Non-ST elevation (NSTEMI) myocardial infarction (principal); E87.6 Hypokalemia; D64.9 Anemia, unspecified; Z91.81 History of falling; I10 Essential (primary) hypertension; Z87.891 Personal history of nicotine dependence; F03.90 Unspecified dementia, unspecified severity, without behavioral disturbance, psychotic disturbance, mood disturbance, and anxiety; I69.359 Hemiplegia and hemiparesis following cerebral infarction affecting unspecified side; Z79.02 Long term (current) use of antithrombotics/antiplatelets; Z66 Do not resuscitate
CPT/HCPCS: 36415; 70450; 71045; 72125; 80053; 83690; 83735; 83880; 84484; 85025; 85610; 85730; 86850; 86900; 86901; 86920; 93005; 99284; 99285; A9270; 80320

== ENCOUNTER 2019-11-24 02:12 | Outpatient (CLI) | payer MEDICARE, BC | END 2019-11-24 02:13 | disposition home or self-care (01) | LOC: EMS 02:12 | PROVIDERS: ATTEND Surgery | DX: R53.83 Other fatigue (principal); R53.1 Weakness | CPT/HCPCS: A0425; A0428 ==

== ENCOUNTER 2019-11-27 08:00 | Outpatient (CLI) | payer MEDICARE, BC ==
[2019-11-27 20:04] LABS: BASOPHILS % (AUTO) 0.2 %; EOSINOPHILS # (AUTO) 0.1 10^3/uL (0.0-0.7); EOSINOPHILS % (AUTO) 1.1 %; LYMPHOCYTES # (AUTO) 1.5 10^3/uL (1.5-3.5); MEAN CORPUSCULAR HEMOGLOBIN 29.9 pg (27.0-31.0); MEAN CORPUSCULAR HGB CONC 31.3 g/dL (32.0-36.0); MEAN CORPUSCULAR VOLUME 95.5 fL (80.0-94.0); MEAN PLATELET VOLUME 8.8 fL (7.4-11.4); MONOCYTES # (AUTO) 0.9 10^3/uL (0.0-1.0); MONOCYTES % (AUTO) 10.8 %; NEUTROPHILS # (AUTO) 5.8 10^3/uL (1.5-6.6); NEUTROPHILS % (AUTO) 69.3 %; PLT - PLATELET COUNT 219 10^3/uL (130-450); RED BLOOD COUNT 2.24 10^6/uL (4.70-6.10); RED CELL DISTRIBUTION WIDTH 17.8 % (12.0-15.0); WHITE BLOOD COUNT 8.3 x10^3/uL (4.8-10.8)
[2019-11-27 20:09] LABS: CREATININE 1.2 mg/dL (0.6-1.2)
[2019-11-27 20:16] LABS: HGB - HEMOGLOBIN 6.7 g/dL (14.0-18.0)
== END 2019-11-27 08:01 | disposition home or self-care (01) ==
LOC: LAB.R 08:00
DX: I12.9 Hypertensive chronic kidney disease with stage 1 through stage 4 chronic kidney disease, or unspecified chronic kidney disease (principal); N18.3 Chronic kidney disease, stage 3 (moderate); G45.9 Transient cerebral ischemic attack, unspecified; D50.0 Iron deficiency anemia secondary to blood loss (chronic)
CPT/HCPCS: 80048; 85025